=== PATIENT | male | born 1970 | race Caucasian/White ===

== ENCOUNTER 2018-03-27 19:19 | Emergency (ER) | payer OTHER, SELFPAY ==
[2018-03-27 19:20] VITALS: BP 140/74; PULSE 111; RESP 14; TEMP 36.8; O2SAT 94; BMI 29.0
--- NOTE | 2018-03-27 19:59 | DI.CT.S_ITS ---
PROCEDURE: CT CERVICAL SPINE WO CON INDICATIONS: multiple falls, neck pain TECHNIQUE: Noncontrast 3 mm thick sections acquired from the skull base to the T4 level. Sagittal and coronal reformats were then constructed. For radiation dose reduction, the following was used: automated exposure control, adjustment of mA and/or kV according to patient size. COMPARISON: [facility], CT, CT HEAD/BRAIN WO CON, 03/27/2018, 19:59. [facility], CR, CERVICAL SPINE 2 OR 3 VIEWS, 10/02/2016, 10:32. FINDINGS: Image quality: Excellent. Bones: No fractures or dislocations. Visualized superior ribs are intact. Degenerative disc disease is moderately severe over the middle and lower thirds of the cervical line. No trauma. Soft tissues: Prevertebral soft tissues are normal in thickness. No paravertebral hematomas. No apical pneumothoraces. IMPRESSION: Moderately severe degenerative disc disease over the middle and lower thirds of the cervical spine but without evidence of fracture or traumatic subluxation. Dictated by: Omar Saenz M.D. on 03/27/2018 at 20:20 Approved by: Omar Saenz M.D. on 03/27/2018 at 20:21
--- NOTE | 2018-03-27 19:59 | DI.CT.S_ITS ---
PROCEDURE: CT HEAD/BRAIN WO CON INDICATIONS: multiple falls, altered mental status TECHNIQUE: Noncontrast 4.5 mm thick angled axial sections acquired from the foramen magnum to the vertex, with coronal and sagittal reformats. For radiation dose reduction, the following was used: automated exposure control, adjustment of mA and/or kV according to patient size. COMPARISON: None. FINDINGS: Image quality: Excellent. CSF spaces: Basal cisterns are patent. No extra-axial fluid collections. Ventricles are normal in size and shape. Brain: No midline shift. No intracranial masses or hemorrhage. Peoples-white matter interface is normal. Skull and face: Calvarium and visualized facial bones are intact, without suspicious lesions. Sinuses: Visualized sinuses and mastoids are clear except for slight mucosal thickening of the posterior border of the maxillary sinuses. IMPRESSION: Slight mucosal thickening posterior border of the maxillary sinuses, no acute disease identified. No intracranial hemorrhage is present. Dictated by: Omar Saenz M.D. on 03/27/2018 at 20:19 Approved by: Omar Saenz M.D. on 03/27/2018 at 20:20
--- NOTE | 2018-03-27 20:13 | ED_ITS ---
HPI - Headache <CHELLE Sterling-BC - Last Filed: 03/27/18 23:55> General Chief Complaint: Headache Stated Complaint: HEAD PRESSURE Time Seen by Provider: 03/27/18 19:41 Source: patient and family Mode of arrival: ambulatory Limitations: no limitations History of Present Illness HPI Narrative: Patient presents with various complaints. He was noted to have a concussion approximately 1-1/2 years ago. He states he hit his head again a few months ago on a side rail. He presents with chief complaint of headache, head pressure, nausea vomiting. He also complains of palpitations, lack of ability to focus. He states he multiple falls. Of note the patient does admit to drinking 1/2 a 750 mL bottle of Tequila per day. He does combined this was Xanax as well. Mother patient states that all he wants to do is sleep. They state he sleeps approximately 15-20 hours per day. Complains of blurry vision in his left eye. Patient has not taken any Tylenol or ibuprofen today but states he took Xanax. He admits to having some shots today as well. notes that he has a history of elevated LFTs due to his drinking. Patient states he has not seen a primary care provider about this problem as he lives on [facility] and has trouble accessing care. Related Data Home Medications Medication Instructions Recorded Confirmed alprazolam [Xanax] 1 mg PO DAILY #0 09/20/16 03/27/18 ibuprofen 600 mg PO TID PRN #0 09/20/16 03/27/18 metoprolol succinate 100 mg PO QDAY #0 09/20/16 03/27/18 Previous Rx's Medication Instructions Recorded chlordiazepoxide HCl See Label Instructions .ROUTE 03/27/18 .COMPLEX #32 cap ondansetron HCl 4 mg PO TID PRN 5 Days #15 tab 03/27/18 Allergies Allergy/AdvReac Type Severity Reaction Status Date / Time No Known Drug Allergies Allergy Verified 03/27/18 19:25 Review of Systems <CHELLE Sterling-BC - Last Filed: 03/27/18 23:55> Review of Systems GENERAL: Denies chills, fatigue, malaise, fever, sweats. HEENT: Denies sinus pain, ear pain, sore throat, difficulty swallowing, dizziness. RESPIRATORY: Denies dyspnea, cough, wheezing, hemoptysis, sputum. CARDIOVASCULAR: Denies chest pain, palpitations, orthopnea, edema, GASTROINTESTINAL: Denies nausea, vomiting, abdominal pain, diarrhea, constipation, melena. : Denies dysuria, frequency, incontinence, hematuria, urinary retention. MUSCULOSKELETAL: See HPI SKIN: Denies rash, skin lesions, or other NEUROLOGIC: See HPI PSYCHIATRIC: No concerning psychosocial issues. 12 point review of systems is negative except for those stated above Exam <CHELLE Sterling-BC - Last Filed: 03/27/18 23:55> Narrative Exam Narrative: GENERAL: This is a well-nourished, well-developed patient, in no acute distress with at bedside. HEAD: Atraumatic. Normocephalic. No temporal or scalp tenderness. EYES: Pupils equal round and reactive. Extraocular motions intact. No scleral icterus. Slight jaundice noted. ENT: Nose without bleeding, purulent drainage or septal hematoma. Throat without erythema, tonsillar hypertrophy or exudate. Uvula midline. Airway patent. NECK: Trachea midline. No JVD or lymphadenopathy. Supple, nontender, no meningeal signs. Pain to palpation of C-spine. CARDIOVASCULAR: Regular rhythm. Tachycardic. RESPIRATORY: Clear to auscultation. Breath sounds equal bilaterally. No wheezes , rales, or rhonchi. GASTROINTESTINAL: Abdomen soft, non-tender, nondistended. Active bowel sounds all 4 quadrants. No palpable mass and no pulsatile mass. Nonrigid, non tender abdomen. Negative Kenny's sign. No pain at McBurney's point. No palpable hepatosplenomegaly. EXTREMITIES: No clubbing, cyanosis, or edema. No joint tenderness, effusion, or edema noted. BACK: Nontender without deformity or crepitance. No flank tenderness. No pain to spinal palpation but patient does have pain to palpation of C-spine. NEURO: AOx3. Strength is equal upper and lower extremities bilaterally. Achilles and radial reflexes are intact bilaterally. SKIN: No rash or erythema. Initial Vital Signs Initial Vital Signs: Vital Signs Temperature 98.3 F 03/27/18 19:20 Pulse Rate 111 H 03/27/18 19:20 Respiratory Rate 14 03/27/18 19:20 Blood Pressure 140/74 03/27/18 19:20 Pulse Oximetry 94 03/27/18 19:20 <Huy Ross DO - Last Filed: 03/28/18 00:47> Initial Vital Signs Initial Vital Signs: Vital Signs Temperature 98.3 F 03/27/18 19:20 Pulse Rate 111 H 03/27/18 19:20 Respiratory Rate 14 03/27/18 19:20 Blood Pressure 140/74 03/27/18 19:20 Pulse Oximetry 94 03/27/18 19:20 Course <ROSALINA SterlingBC - Last Filed: 03/27/18 23:55> Orders Ordered: ED Orders 03/27/18 19:59 CT cervical spine wo con Stat CT head/brain wo con Stat 03/27/18 20:30 Complete Blood Count AUTO DIFF Stat Comprehensive Metabolic Panel Stat Ethanol (ETOH) Stat Prothrombin Time INR Stat Troponin & CK Cardiac Panel Stat 03/27/18 21:18 Ammonia (NH3) Stat Amylase Stat Lipase Stat 03/27/18 21:35 CT abdomen pelvis w con Stat 03/27/18 21:57 US abdomen complete Stat Discontinued Medications Sodium Chloride (Normal Saline 0.9%) 1,000 mls @ 1,000 mls/hr IV BOLUS ONE Stop: 03/27/18 21:01 Last Infusion: 03/27/18 22:01 Dose: 0 mls/hr Admin: 03/27/18 20:50 Dose: 1,000 mls/hr Sodium Chloride (Normal Saline 0.9%) 1,000 mls @ 1,000 mls/hr IV BOLUS ONE Stop: 03/27/18 22:59 Last Infusion: 03/27/18 23:53 Dose: 0 mls/hr Admin: 03/27/18 22:02 Dose: 1,000 mls/hr Lorazepam (Ativan) 1 mg PO NOW ONE Stop: 03/27/18 23:34 Last Admin: 03/27/18 23:44 Dose: 1 mg Reevaluation(s) Reevaluation #1: C-spine collar removed given negative CT result of head and C- spine. Time: 20:30 Reevaluation #2: Discussed elevated LFTs and bilirubin. Discussed adding more lab work. Discussed obtaining CT scan of abdomen. Discussed obtaining ultrasound of abdomen as well. Patient continues to deny abdominal pain. Time: 21:30 Vital Signs - 8 hr 03/27/18 19:20 03/27/18 22:11 03/27/18 23:54 Temperature 98.3 F Pulse Rate 111 H 90 90 Respiratory Rate 14 18 14 Blood Pressure 140/74 118/78 Blood Pressure [Right Arm] 118/78 Pulse Oximetry 94 93 99 <Huy Ross DO - Last Filed: 03/28/18 00:47> Orders Ordered: ED Orders 03/27/18 19:59 CT cervical spine wo con Stat CT head/brain wo con Stat 03/27/18 20:30 Complete Blood Count AUTO DIFF Stat Comprehensive Metabolic Panel Stat Ethanol (ETOH) Stat Prothrombin Time INR Stat Troponin & CK Cardiac Panel Stat 03/27/18 21:18 Ammonia (NH3) Stat Amylase Stat Lipase Stat 03/27/18 21:35 CT abdomen pelvis w con Stat 03/27/18 21:57 US abdomen complete Stat Discontinued Medications Sodium Chloride (Normal Saline 0.9%) 1,000 mls @ 1,000 mls/hr IV BOLUS ONE Stop: 03/27/18 21:01 Last Infusion: 03/27/18 22:01 Dose: 0 mls/hr Admin: 03/27/18 20:50 Dose: 1,000 mls/hr Sodium Chloride (Normal Saline 0.9%) 1,000 mls @ 1,000 mls/hr IV BOLUS ONE Stop: 03/27/18 22:59 Last Infusion: 03/27/18 23:53 Dose: 0 mls/hr Admin: 03/27/18 22:02 Dose: 1,000 mls/hr Lorazepam (Ativan) 1 mg PO NOW ONE Stop: 03/27/18 23:34 Last Admin: 03/27/18 23:44 Dose: 1 mg Vital Signs - 8 hr 03/27/18 19:20 03/27/18 22:11 03/27/18 23:54 Temperature 98.3 F Pulse Rate 111 H 90 90 Respiratory Rate 14 18 14 Blood Pressure 140/74 118/78 Blood Pressure [Right Arm] 118/78 Pulse Oximetry 94 93 99 MDM - Headache <GRACIELA Sterling - Last Filed: 03/27/18 23:55> Lab Data Attestation: I reviewed the patient's lab results. Result diagrams: 03/27/18 20:30 03/27/18 20:30 Lab Results 03/27/18 03/27/18 03/27/18 Range/Units 20:30 20:30 20:30 WBC 4.8 (4.5-11.0) X10^3/uL RBC 3.99 L (4.5-5.9) X10^6/uL Hgb 14.3 (13.5-17.5) g/dL Hct 41.0 (41-53) % MCV 103.0 H (80-100) fL MCH 36.0 H (26-34) PG MCHC 34.9 (30-36) % RDW 16.9 H (11.6-14.8) % Plt Count 48 L (150-400) X10^3/uL Neut % (Auto) 59.4 (50-75) % Lymph % (Auto) 21.3 L (25-40) % Glynn % (Auto) 13.5 (3-14) % Eos % (Auto) 5.2 H (2-4) % Baso % (Auto) 0.6 (0-2) % Neut # (Auto) 2800 L (3010-8322) /uL Platelet Estimate Decreased on smear RBC Morphology See below Anisocytosis 1+ H PT 14.0 H (10.1-12.7) SECONDS INR 1.3 (0.9-1.3) Sodium 143 (137-145) mmol/L Potassium 3.5 (3.4-5.1) mmol/L Chloride 102 (98-107) mmol/L Carbon Dioxide 28 (22-32) mmol/L BUN 9 (9-20) mg/dL Creatinine 0.70 (0.66-1.25) mg/dL Estimated GFR > 60.0 (>60) mL/min BUN/Creatinine Ratio 12.9 (6-22) Glucose 118 H (70-100) mg/dL Calcium 8.5 (8.4-10.2) mg/dL Total Bilirubin 4.6 H (0.2-1.3) mg/dL AST 161 H (17-59) IU/L ALT 49 (21-72) IU/L Alkaline Phosphatase 321 H (38-126) U/L Ammonia (9-30) umol/L Total Creatine Kinase 564 H (55-170) U/L CK-MB (CK-2) 3.47 H (<2.37) ng/mL CK-MB (CK-2) Rel Index 0.6 L (1.5-5.0) % Troponin I 0.020 (0.01-0.034) ng/mL Total Protein 8.2 (6.3-8.2) g/dL Albumin 3.8 (3.5-5.0) g/dL Globulin 4.4 H (1.7-4.1) g/dL Albumin/Globulin Ratio 0.9 L (1.0-2.8) Amylase (30-110) U/L Lipase (23-300) U/L Ethyl Alcohol 250 mg/dL 03/27/18 03/27/18 Range/Units 21:18 21:18 WBC (4.5-11.0) X10^3/uL RBC (4.5-5.9) X10^6/uL Hgb (13.5-17.5) g/dL Hct (41-53) % MCV (80-100) fL MCH (26-34) PG MCHC (30-36) % RDW (11.6-14.8) % Plt Count (150-400) X10^3/uL Neut % (Auto) (50-75) % Lymph % (Auto) (25-40) % Glynn % (Auto) (3-14) % Eos % (Auto) (2-4) % Baso % (Auto) (0-2) % Neut # (Auto) (2721-7136) /uL Platelet Estimate RBC Morphology Anisocytosis PT (10.1-12.7) SECONDS INR (0.9-1.3) Sodium (137-145) mmol/L Potassium (3.4-5.1) mmol/L Chloride (98-107) mmol/L Carbon Dioxide (22-32) mmol/L BUN (9-20) mg/dL Creatinine (0.66-1.25) mg/dL Estimated GFR (>60) mL/min BUN/Creatinine Ratio (6-22) Glucose (70-100) mg/dL Calcium (8.4-10.2) mg/dL Total Bilirubin (0.2-1.3) mg/dL AST (17-59) IU/L ALT (21-72) IU/L Alkaline Phosphatase (38-126) U/L Ammonia 42.0 H (9-30) umol/L Total Creatine Kinase (55-170) U/L CK-MB (CK-2) (<2.37) ng/mL CK-MB (CK-2) Rel Index (1.5-5.0) % Troponin I (0.01-0.034) ng/mL Total Protein (6.3-8.2) g/dL Albumin (3.5-5.0) g/dL Globulin (1.7-4.1) g/dL Albumin/Globulin Ratio (1.0-2.8) Amylase 107 (30-110) U/L Lipase 477 H (23-300) U/L Ethyl Alcohol mg/dL Patient is noted to have increased LFTs, elevated ammonia slightly, elevated bilirubin. Patient is noted have decreased platelets and an INR of 1.3. Imaging Data CT scan - head: Radiologist's impression: [facility] DATE TYPE STATUS AUTHOR Marissa 03/27/18 19:59 Omar Saenz 03/27/18 19:59 Omar Saenz Balta Jarrett 47, M1970 [facility], ED - Main ED: R04 167.64cm 81.647kg BSA: 1.91m? BMI: 29.1kg/m? Headache Search Chart No Known Drug Allergies ONSET Today 19:20 [place] [address] CT Scan Report Signed Patient: Balta JarrettMR#: [id number] : 1970Acct:[id number] Age/Sex: 47 / MDate of Service: 03/27/18 Loc: ED Accession Number: [id number] Procedure: CT head/brain wo con Ordering Provider: Kristy Sebastian PROCEDURE: CT HEAD/BRAIN WO CON INDICATIONS: multiple falls, altered mental status TECHNIQUE: Noncontrast 4.5 mm thick angled axial sections acquired from the foramen magnum to the vertex, with coronal and sagittal reformats. For radiation dose reduction, the following was used: automated exposure control, adjustment of mA and/or kV according to patient size. COMPARISON: None. FINDINGS: Image quality: Excellent. CSF spaces: Basal cisterns are patent. No extra-axial fluid collections. Ventricles are normal in size and shape. Brain: No midline shift. No intracranial masses or hemorrhage. Peoples-white matter interface is normal. Skull and face: Calvarium and visualized facial bones are intact, without suspicious lesions. Sinuses: Visualized sinuses and mastoids are clear except for slight mucosal thickening of the posterior border of the maxillary sinuses. IMPRESSION: Slight mucosal thickening posterior border of the maxillary sinuses , no acute disease identified. No intracranial hemorrhage is present. Dictated by: Omar Saenz M.D. on 03/27/2018 at 20:19 Approved by: Omar Saenz M.D. on 03/27/2018 at 20:20 ct c spine : Radiologist's impression: [place] [address] CT Scan Report Signed Patient: Shun Jarrett#: [id number] : 1970Acct:[id number] Age/Sex: 47 / MDate of Service: 03/27/18 Loc: ED Accession Number: [id number] Procedure: CT cervical spine wo con Ordering Provider: Kristy Sebastian PROCEDURE: CT CERVICAL SPINE WO CON INDICATIONS: multiple falls, neck pain TECHNIQUE: Noncontrast 3 mm thick sections acquired from the skull base to the T4 level. Sagittal and coronal reformats were then constructed. For radiation dose reduction, the following was used: automated exposure control, adjustment of mA and/or kV according to patient size. COMPARISON: [facility], CT, CT HEAD/BRAIN WO CON, 03/27/2018, 19:59. [facility], CR, CERVICAL SPINE 2 OR 3 VIEWS, 10/02/2016, 10:32. FINDINGS: Image quality: Excellent. Bones: No fractures or dislocations. Visualized superior ribs are intact. Degenerative disc disease is moderately severe over the middle and lower thirds of the cervical line. No trauma. Soft tissues: Prevertebral soft tissues are normal in thickness. No paravertebral hematomas. No apical pneumothoraces. IMPRESSION: Moderately severe degenerative disc disease over the middle and lower thirds of the cervical spine but without evidence of fracture or traumatic subluxation. Dictated by: Omar Saenz M.D. on 03/27/2018 at 20:20 Approved by: Omar Saenz M.D. on 03/27/2018 at 20:21 ECG Data Attestation: I personally reviewed and interpreted this ECG as follows: Interpretation: Sinus tachycardia. Heart rate 107. No ST elevation or depression. No ectopy noted MDM Narrative Medical decision making narrative: Patient presents with chief complaint of headache, multiple falls, somnolence. He was noted to be drinking approximately 50% of 750 of Tequila per day. He had an elevated alcohol. Given his reported recent falls and poor historian, I obtained a head CT and neck CT which both came back negative. His combination of elevated LFTs, elevated bili, elevated ammonia make me concern for alcoholic cirrhosis. I had a very satish discussion with the patient about needing to stop drinking at this point time. I discussed with Dr. Castanon the patient's labs and presentation. She did not feel this was a surgical case, but suggested that I speak with Medicine. Prior to speaking with Medicine, the patient stated he did not want to be admitted to the hospital. I discussed at length with him drinking cessation. The patient was given a prescription of Librium as well as Zofran her detox symptoms. He already has follow-up scheduled with his PCPs office tomorrow afternoon. Patient had no questions or concerns upon discharge. <Huy Ross, DO - Last Filed: 03/28/18 00:47> Lab Data Lab Results 03/27/18 03/27/18 03/27/18 Range/Units 20:30 20:30 20:30 WBC 4.8 (4.5-11.0) X10^3/uL RBC 3.99 L (4.5-5.9) X10^6/uL Hgb 14.3 (13.5-17.5) g/dL Hct 41.0 (41-53) % MCV 103.0 H (80-100) fL MCH 36.0 H (26-34) PG MCHC 34.9 (30-36) % RDW 16.9 H (11.6-14.8) % Plt Count 48 L (150-400) X10^3/uL Neut % (Auto) 59.4 (50-75) % Lymph % (Auto) 21.3 L (25-40) % Glynn % (Auto) 13.5 (3-14) % Eos % (Auto) 5.2 H (2-4) % Baso % (Auto) 0.6 (0-2) % Neut # (Auto) 2800 L (4534-8140) /uL Platelet Estimate Decreased on smear RBC Morphology See below Anisocytosis 1+ H PT 14.0 H (10.1-12.7) SECONDS INR 1.3 (0.9-1.3) Sodium 143 (137-145) mmol/L Potassium 3.5 (3.4-5.1) mmol/L Chloride 102 (98-107) mmol/L Carbon Dioxide 28 (22-32) mmol/L BUN 9 (9-20) mg/dL Creatinine 0.70 (0.66-1.25) mg/dL Estimated GFR > 60.0 (>60) mL/min BUN/Creatinine Ratio 12.9 (6-22) Glucose 118 H (70-100) mg/dL Calcium 8.5 (8.4-10.2) mg/dL Total Bilirubin 4.6 H (0.2-1.3) mg/dL AST 161 H (17-59) IU/L ALT 49 (21-72) IU/L Alkaline Phosphatase 321 H (38-126) U/L Ammonia (9-30) umol/L Total Creatine Kinase 564 H (55-170) U/L CK-MB (CK-2) 3.47 H (<2.37) ng/mL CK-MB (CK-2) Rel Index 0.6 L (1.5-5.0) % Troponin I 0.020 (0.01-0.034) ng/mL Total Protein 8.2 (6.3-8.2) g/dL Albumin 3.8 (3.5-5.0) g/dL Globulin 4.4 H (1.7-4.1) g/dL Albumin/Globulin Ratio 0.9 L (1.0-2.8) Amylase (30-110) U/L Lipase (23-300) U/L Ethyl Alcohol 250 mg/dL 03/27/18 03/27/18 Range/Units 21:18 21:18 WBC (4.5-11.0) X10^3/uL RBC (4.5-5.9) X10^6/uL Hgb (13.5-17.5) g/dL Hct (41-53) % MCV (80-100) fL MCH (26-34) PG MCHC (30-36) % RDW (11.6-14.8) % Plt Count (150-400) X10^3/uL Neut % (Auto) (50-75) % Lymph % (Auto) (25-40) % Glynn % (Auto) (3-14) % Eos % (Auto) (2-4) % Baso % (Auto) (0-2) % Neut # (Auto) (5623-2661) /uL Platelet Estimate RBC Morphology Anisocytosis PT (10.1-12.7) SECONDS INR (0.9-1.3) Sodium (137-145) mmol/L Potassium (3.4-5.1) mmol/L Chloride (98-107) mmol/L Carbon Dioxide (22-32) mmol/L BUN (9-20) mg/dL Creatinine (0.66-1.25) mg/dL Estimated GFR (>60) mL/min BUN/Creatinine Ratio (6-22) Glucose (70-100) mg/dL Calcium (8.4-10.2) mg/dL Total Bilirubin (0.2-1.3) mg/dL AST (17-59) IU/L ALT (21-72) IU/L Alkaline Phosphatase (38-126) U/L Ammonia 42.0 H (9-30) umol/L Total Creatine Kinase (55-170) U/L CK-MB (CK-2) (<2.37) ng/mL CK-MB (CK-2) Rel Index (1.5-5.0) % Troponin I (0.01-0.034) ng/mL Total Protein (6.3-8.2) g/dL Albumin (3.5-5.0) g/dL Globulin (1.7-4.1) g/dL Albumin/Globulin Ratio (1.0-2.8) Amylase 107 (30-110) U/L Lipase 477 H (23-300) U/L Ethyl Alcohol mg/dL Discharge Plan Departure Patient Disposition: Home Clinical Impression: Elevated LFTs, Headache, Alcohol abuse, Elevated bilirubin, Hepatosplenomegaly , Elevated lipase, Decreased platelet count Discharge Date/Time: 03/27/18 23:55 Interventions: ED Discharge Assessment Last Done: 03/27/18 23:54 Instructions: DI for Cirrhosis, DI for Alcohol Abuse, DI for Headache, DI for Drug or Alcohol Withdrawal Activity Restrictions/Additional Instructions: It is imperative that you follow-up with your primary care provider tomorrow. I am very concerned that ear drinking alcohol is leading to organ dysfunction. You need very close monitoring and very close follow-up. Have also given you a prescription for Zofran for nausea. I have given you contact information for a few GI specialist. Please stop drinking alcohol and do not use any medications that are metabolized through the liver such as Tylenol. Prescriptions: New ondansetron HCl 4 mg tablet 4 mg PO TID PRN (Reason: nausea and vomiting) 5 Days Qty: 15 RF: 0 chlordiazepoxide HCl 25 mg capsule See Label Instructions .ROUTE .COMPLEX Qty: 32 RF: 0 No Action metoprolol succinate 100 MG tablet extended release 24 hr 100 mg PO QDAY Qty: 0 RF: 0 alprazolam [Xanax] 0.5 MG tablet 1 mg PO DAILY Qty: 0 RF: 0 ibuprofen 600 MG tablet 600 mg PO TID PRN (Reason: Pain (Scale Score 4-6)) Qty: 0 RF: 0 Referrals: [facility] [Outside] [facility] [Outside] Ranjan Goldman MD [Primary Care Provider] - Ranjan Childers MD [Non-Staff] - <Huy Ross DO - Last Filed: 03/28/18 00:47> Cosign ED Attending Guerreroature Attestation: I was immediately available in the department for consultation. Documentation has been reviewed. I agree with assessment and plan.
--- NOTE | 2018-03-27 20:34 | PC.NURSE ---
cervical collar placed at 2009. Collar removed by ELISABETH at 2029.
[2018-03-27 20:36] LABS: Add Manual Diff / Slide Review NO; Basophils Percent Auto 0.6 % (0-2); Eosinophils Percent Auto 5.2 % (2-4); Hemoglobin 14.3 g/dL (13.5-17.5); Lymphocytes Percent Auto 21.3 % (25-40); Mean Corpuscular HGB Conc 34.9 % (30-36); Monocytes Percent Auto 13.5 % (3-14); Neutrophils Absolute Auto 2800 /uL (3000-5900); Neutrophils Percent Auto 59.4 % (50-75); Platelet Count 48 X10^3/uL (150-400); Red Blood Cell Count 3.99 X10^6/uL (4.5-5.9); Red Cell Distribution Width 16.9 % (11.6-14.8); White Blood Cell Count 4.8 X10^3/uL (4.5-11.0)
[2018-03-27 20:46] LABS: INR 1.3 (0.9-1.3)
[2018-03-27 20:50] LABS: Alanine Aminotransferase 49 IU/L (21-72); Albumin 3.8 g/dL (3.5-5.0); Albumin Globulin Ratio 0.9 (1.0-2.8); Alkaline Phosphatase 321 U/L (38-126); Aspartate Aminotransferase 161 IU/L (17-59); BUN Creatinine Ratio 12.9 (6-22); Bilirubin Total 4.6 mg/dL (0.2-1.3); Blood Urea Nitrogen 9 mg/dL (9-20); Calcium 8.5 mg/dL (8.4-10.2); Carbon Dioxide 28 mmol/L (22-32); Chloride 102 mmol/L (98-107); Creatine Kinase 564 U/L (55-170); Estimated Glomerular Filt Rate > 60.0 mL/min (>60); Globulin 4.4 g/dL (1.7-4.1); Glucose 118 mg/dL (70-100); Potassium 3.5 mmol/L (3.4-5.1); Sodium 143 mmol/L (137-145); Total Protein 8.2 g/dL (6.3-8.2)
[2018-03-27] MEDS: SODIUM CHLORIDE 0.9% 1,000 ML 1000 ML IV ×2 (20:50→22:02)
[2018-03-27 20:54] LABS: Ethanol (ETOH) 250 mg/dL; HEMOLYSIS 24 (0-50)
[2018-03-27 21:15] LABS: CKMB % Relative Index 0.6 % (1.5-5.0); Creatine Kinase MB 3.47 ng/mL (<2.37)
[2018-03-27 21:17] LABS: Anisocytosis 1+; Platelet Estimate Decreased on smear
[2018-03-27 21:33] LABS: Amylase 107 U/L (30-110); Lipase 477 U/L (23-300)
--- NOTE | 2018-03-27 21:35 | DI.CT.S_ITS ---
PROCEDURE: CT ABDOMEN PELVIS W CON INDICATIONS: abdominal pain TECHNIQUE: After the administration of intravenous contrast, 5 mm thick sections acquired from the diaphragm to the symphysis. 5 mm coronal and sagittal reformats were acquired. For radiation dose reduction, the following was used: automated exposure control, adjustment of mA and/or kV according to patient size. COMPARISON: None. FINDINGS: Image quality: Excellent. ABDOMEN: Lung bases: Lung bases are clear. Heart size is normal. Solid organs: Liver is enlarged in size and normal in enhancement. Gallbladder contains calcified gallstones layering dependently. Biliary system is non dilated. Pancreas enhances normally but there is peripancreatic edema in the pancreatic head and extending contiguously along the right paracolic gutter borders. Spleen is only mildly enlarged in size and normal in enhancement. No adrenal nodules. Kidneys demonstrate normal size and enhancement, without hydronephrosis. Peritoneum and bowel: Bowel loops demonstrate normal wall thickness and caliber on the left but the ascending colon shows a mild degree of mural thickening in addition to the immediately adjacent pericolonic edema tracking along the fascial planes of the right paracolic gutter. No free fluid or air. Nodes and vessels: No retroperitoneal or mesenteric adenopathy by size criteria. Aorta and inferior vena cava are normal in size. Miscellaneous: No ventral hernias. PELVIS: Genitourinary: Bladder wall thickness is normal. Miscellaneous: No inguinal hernias or adenopathy. Bones: No suspicious bony lesions. No vertebral body compression fractures. IMPRESSION: Calcified gallstones present within the posterior gallbladder lumen but no biliary gallstone is seen. The gallstones present are densely calcified and is within the common duct would be easily visible. There is edema that tracks to the anterior border of the pancreatic head but also the C. edema tracts along the paracolic gutter and is associated with mild mural thickening of the ascending colon which does not extend into the transverse colon. Please correlate clinically for differentiation between acute pancreatitis versus colitis as the underlying cause of this retroperitoneal edema. Note is made of hepatosplenomegaly, and increased number of venous structures are seen across the upper abdomen as an indicator of likelihood of underlying mild to moderate portal hypertension. Dictated by: Omar Saenz M.D. on 03/27/2018 at 22:05 Approved by: Omar Saenz M.D. on 03/27/2018 at 22:10
--- NOTE | 2018-03-27 21:57 | DI.US.S_ITS ---
PROCEDURE: US ABDOMEN COMPLETE INDICATIONS: PAIN TECHNIQUE: Real-time scanning was performed of the abdominal and retroperitoneal organs, with image documentation. COMPARISON: [facility], CT, CT ABDOMEN PELVIS W CON, 03/27/2018, 21:42. FINDINGS: Liver: Liver is diffusely increased in echogenicity. No focal hepatic abnormalities identified. Normal hepatic size. Gallbladder: Gallstones seen on recent CT scan are not definitively identified sonographically, although they may be positioned within the gallbladder neck and not sonographically visible. Gallbladder wall measures 2 mm which is normal. No pericholecystic fluid. Biliary ducts: Intrahepatic bile ducts are non-dilated. Extrahepatic bile duct caliber measures 5.7 mm. Normal is 6-7 mm or less in diameter, or 10 mm or less post-cholecystectomy. Pancreas: Not visualized. Spleen: Spleen is enlarged in size at 13.3 cm and homogeneous in echotexture. Kidneys: Kidneys are normal in size and echotexture. Right kidney measures 11.8 cm long; left kidney measures 11.8 cm long. No hydronephrosis or nephrolithiasis. No solid masses. Aorta: Visualized aorta is normal in caliber at less than 3 cm. Iliacs: Proximal common iliac arteries are normal in caliber at less than 2.5 cm. IVC: Intrahepatic inferior vena cava is patent. Miscellaneous: No free abdominal fluid. IMPRESSION: 1. Increased hepatic echogenicity noted possibly related to hepatic steatosis but other sources of hepatocellular disease cannot be excluded. Recommend clinical correlation. 2. Gallstones seen convincingly on recent CT scan are not definitively identified by ultrasound. If indicated repeat limited gallbladder ultrasound could be performed. 3. Sonographic splenomegaly. Note: These findings are concordant with the preliminary interpretation. Dictated by: Best GOMEZ Interpreted: Norma Pugh MD on 03/28/2018 at 8:43 Approved by: Norma Pugh M.D. on 03/28/2018 at 15:36
[2018-03-27 22:11] VITALS: BP 118/78; PULSE 90; RESP 18; O2SAT 93
[2018-03-27] MEDS: LORazepam 0.5 MG TABLET 1 MG PO (23:44)
[2018-03-27 23:54] VITALS: BP 118/78; PULSE 90; RESP 14; O2SAT 99
--- NOTE | 2018-03-30 17:36 | PC.NURSE ---
follow up call, number no responds.
== END 2018-03-27 23:55 | disposition home or self-care (01) ==
PROVIDERS: Emergency Provider Nurse Practitioner Family; Family Provider Family Medicine; PCP Family Medicine
DX: R51 Headache (principal); R94.5 Abnormal results of liver function studies; R16.2 Hepatomegaly with splenomegaly, not elsewhere classified; R17 Unspecified jaundice; R74.8 Abnormal levels of other serum enzymes; F10.10 Alcohol abuse, uncomplicated; D69.6 Thrombocytopenia, unspecified
CPT/HCPCS: 36415; 36591; 70450; 72125; 74177; 76700; 80053; 80320; 82140; 82150; 82550; 82553; 83690; 84484; 85025; 85610; 93005; 96360; 96361; 99283; 99285; Q9967

== ENCOUNTER 2018-10-21 21:48 | Emergency (ER) | payer OTHER, SELFPAY ==
[2018-10-21 21:53] VITALS: BP 116/77; PULSE 78; RESP 18; TEMP 36.4; O2SAT 96; BMI 29.0
[2018-10-21 22:00] VITALS: BP 112/64; PULSE 77; RESP 12; O2SAT 95
--- NOTE | 2018-10-21 22:22 | DI.RAD.S_ITS ---
PROCEDURE: XR CHEST 1V INDICATIONS: syncope, choking TECHNIQUE: One view of the chest was acquired. COMPARISON: None. FINDINGS: Surgical changes and devices: None. Lungs and pleura: Streaky left basilar opacities. Lungs are otherwise clear. Mild eventration of the right hemidiaphragm. No pleural effusions or pneumothorax. Mediastinum: Mediastinal contours appear normal. Heart size is normal. Bones and chest wall: No suspicious bony lesions. Overlying soft tissues appear unremarkable. IMPRESSION: Mild streaky left basilar opacities favored to represent atelectasis. However, focal airspace disease/aspiration may have a similar appearance given reported history of choking. Dictated by: Sulaiman Hein M.D. on 10/22/2018 at 6:12 Approved by: Sulaiman Hein M.D. on 10/22/2018 at 6:14
[2018-10-21 22:30] VITALS: BP 107/71; PULSE 74; RESP 12; O2SAT 94
[2018-10-21 22:31] LABS: Add Manual Diff / Slide Review NO; Basophils Absolute Auto 0 /uL (0-100); Basophils Percent Auto 0.7 % (0-2); Eosinophils Absolute Auto 400 /uL (0-450); Eosinophils Percent Auto 7.2 % (2-4); Hematocrit 39.3 % (41-53); Hemoglobin 13.4 g/dL (13.5-17.5); Lymphocytes Absolute Auto 1700 /uL (1100-4500); Lymphocytes Percent Auto 30.7 % (25-40); Mean Corpuscular HGB Conc 34.2 % (30-36); Mean Corpuscular Hemoglobin 36.1 PG (26-34); Mean Corpuscular Volume 105.7 fL (80-100); Monocytes Absolute Auto 500 /uL (0-900); Monocytes Percent Auto 9.2 % (3-14); Neutrophils Absolute Auto 2900 /uL (1500-7000); Neutrophils Percent Auto 52.2 % (50-75); Platelet Count 68 X10^3/uL (150-400); Red Blood Cell Count 3.72 X10^6/uL (4.5-5.9); Red Cell Distribution Width 14.9 % (11.6-14.8); White Blood Cell Count 5.5 X10^3/uL (4.5-11.0)
[2018-10-21 22:44] LABS: Alanine Aminotransferase 75 IU/L (21-72); Albumin 3.3 g/dL (3.5-5.0); Albumin Globulin Ratio 0.8 (1.0-2.8); Alkaline Phosphatase 241 U/L (38-126); Aspartate Aminotransferase 145 IU/L (17-59); Bilirubin Total 2.8 mg/dL (0.2-1.3); Blood Urea Nitrogen 9 mg/dL (9-20); Calcium 7.8 mg/dL (8.4-10.2); Carbon Dioxide 25 mmol/L (22-32); Chloride 108 mmol/L (98-107); Creatine Kinase 599 U/L (55-170); Estimated Glomerular Filt Rate > 60.0 mL/min (>60); Ethanol (ETOH) 294 mg/dL; Globulin 4.1 g/dL (1.7-4.1); Glucose 100 mg/dL (70-100); HEMOLYSIS 16 (0-50); Potassium 3.4 mmol/L (3.4-5.1); Sodium 144 mmol/L (137-145); Total Protein 7.4 g/dL (6.3-8.2)
--- NOTE | 2018-10-21 22:51 | ED_ITS ---
HPI - Syncope General Chief Complaint: Syncope Stated Complaint: Choking, CPR AOx4 now Time Seen by Provider: 10/21/18 21:55 Source: patient, family and EMS Mode of arrival: EMS Limitations: no limitations History of Present Illness HPI narrative: 47-year-old male former smoker and heavy drinker presents by EMS for evaluation of a choking episode and subsequent syncopal episode. He was eating a [place] dinner the read shows and had a significant amount Tequila when he choked on his food and subsequently passed out. His called 911 and they recommended some chest compressions which apparently cleared the food bolus and by arrival of EMS he was breathing appropriately. By his arrival here he was completely awake and alert and was requesting near immediate discharge. The patient after further questioning states he essentially feels fine and at baseline but admitted these started heavy drinking again. He is requesting help stopping alcohol abuse MD complaint: loss of consciousness and collapsed Onset (ago): minute(s) Prodromal symptoms: none Witnessed: yes - by bystander Context: alcohol use and other Injuries sustained associated with event: none Current symptoms: none Treatments prior to arrival: none Related Data Home Medications Medication Instructions Recorded Confirmed alprazolam [Xanax] 1 mg PO DAILY #0 09/20/16 03/27/18 ibuprofen 600 mg PO TID PRN #0 09/20/16 03/27/18 metoprolol succinate 100 mg PO QDAY #0 09/20/16 03/27/18 Previous Rx's Medication Instructions Recorded chlordiazepoxide HCl See Rx Instructions .ROUTE 03/27/18 .COMPLEX #32 cap chlordiazepoxide HCl 25 mg PO Q8H PRN #32 cap 10/22/18 Allergies Allergy/AdvReac Type Severity Reaction Status Date / Time No Known Drug Allergies Allergy Verified 03/27/18 19:25 Review of Systems Constitutional Denies chills, Denies fever(s), Denies lethargy and Denies weakness Eyes Denies change in vision, Denies eye discharge, Denies irritation and Denies loss of vision ENT Ears, Nose, Mouth, and Throat: Denies change in voice, Denies neck pain and Denies sore throat Cardiovascular Denies chest pain, Reports syncope, Denies irregular heart rhythm, Denies lightheadedness, Denies palpitations, Denies dyspnea, Denies dyspnea on exertion and Denies orthopnea Respiratory Denies cough, Denies dyspnea, Denies dyspnea on exertion and Denies wheezing Gastrointestinal Gastrointestinal: Denies abdominal pain, Denies change in bowel habits, Denies diarrhea, Denies nausea and Denies vomiting Genitourinary Denies hematuria, Denies flank pain, Denies urinary incontinence and Denies urinary urgency Musculoskeletal Denies neck pain Integumentary/Breasts Denies pruritus, Denies erythema, Denies rash and Denies wounds Neurologic Denies confusion, Reports syncope, Denies loss of vision and Denies weakness Psychiatric Denies anxiety, Denies confusion, Denies depression, Denies homicidal ideation and Denies suicidal ideation Endocrine Denies palpitations Hematologic/Lymphatic Denies easy bruising Allergic/Immunologic Denies wheezing PFSH Social History Smoking Status: Never smoker Social History Smoking Status: Never smoker Exam Narrative Exam Narrative: GENERAL: This is a well-nourished, well-developed patient, in mild distress. HEAD: Atraumatic. Normocephalic. No temporal or scalp tenderness. EYES: Pupils equal round and reactive. Extraocular motions intact. No scleral icterus. No injection or drainage. ENT: Nose without bleeding, purulent drainage or septal hematoma. Throat without erythema, tonsillar hypertrophy or exudate. Uvula midline. Airway patent. NECK: Trachea midline. No JVD or lymphadenopathy. Supple, nontender, no meningeal signs. CARDIOVASCULAR: Regular rate and rhythm without murmurs, gallops, or rubs. RESPIRATORY: Clear to auscultation. Breath sounds equal bilaterally. No wheezes, rales, or rhonchi. GASTROINTESTINAL: Abdomen soft, non-tender, nondistended. No hepato- splenomegaly, or palpable masses. No guarding. EXTREMITIES: No clubbing, cyanosis, or edema. No joint tenderness, effusion, or edema noted. BACK: Nontender without deformity or crepitance. No flank tenderness. NEURO: AOx3. SKIN: No rash or erythema. Initial Vital Signs Initial Vital Signs: Vital Signs Temperature 97.6 F 10/21/18 21:53 Pulse Rate 78 10/21/18 21:53 Respiratory Rate 18 10/21/18 21:53 Blood Pressure 116/77 10/21/18 21:53 Pulse Oximetry 96 10/21/18 21:53 Course Orders Ordered: ED Orders 10/21/18 22:22 XR chest 1V Stat 10/21/18 22:25 Complete Blood Count AUTO DIFF Stat Comprehensive Metabolic Panel Stat Ethanol (ETOH) Stat Prolactin Stat Troponin & CK Cardiac Panel Stat Discontinued Medications Sodium Chloride (Normal Saline 0.9%) 1,000 mls @ 1,000 mls/hr IV BOLUS ONE Stop: 10/21/18 23:20 Last Admin: 10/21/18 22:56 Dose: 1,000 mls/hr Vital Signs - 8 hr 10/21/18 21:53 10/21/18 22:00 10/21/18 22:30 Temperature 97.6 F Pulse Rate 78 77 74 Respiratory Rate 18 12 12 Blood Pressure 116/77 Blood Pressure [Right Arm] 112/64 107/71 Pulse Oximetry 96 95 94 10/21/18 23:00 10/21/18 23:30 10/22/18 00:00 Temperature Pulse Rate 75 72 73 Respiratory Rate 13 14 14 Blood Pressure Blood Pressure [Right Arm] 104/63 101/61 101/59 L Pulse Oximetry 96 95 96 MDM - Syncope Lab Data Result diagrams: 10/21/18 22:25 10/21/18 22:25 Lab Results 10/21/18 10/21/18 Range/Units 22:25 22:25 WBC 5.5 (4.5-11.0) X10^3/uL RBC 3.72 L (4.5-5.9) X10^6/uL Hgb 13.4 L (13.5-17.5) g/dL Hct 39.3 L (41-53) % MCV 105.7 H (80-100) fL MCH 36.1 H (26-34) PG MCHC 34.2 (30-36) % RDW 14.9 H (11.6-14.8) % Plt Count 68 L (150-400) X10^3/uL Neut % (Auto) 52.2 (50-75) % Lymph % (Auto) 30.7 (25-40) % [place] % (Auto) 9.2 (3-14) % Eos % (Auto) 7.2 H (2-4) % Baso % (Auto) 0.7 (0-2) % Neut # (Auto) 2900 (4136-6156) /uL Lymph # (Auto) 1700 (8484-8236) /uL [place] # (Auto) 500 (0-900) /uL Eos # (Auto) 400 (0-450) /uL Baso # (Auto) 0 (0-100) /uL Sodium 144 (137-145) mmol/L Potassium 3.4 (3.4-5.1) mmol/L Chloride 108 H (98-107) mmol/L Carbon Dioxide 25 (22-32) mmol/L BUN 9 (9-20) mg/dL Creatinine 0.50 L (0.66-1.25) mg/dL Estimated GFR > 60.0 (>60) mL/min BUN/Creatinine Ratio 18.0 (6-22) Glucose 100 (70-100) mg/dL Calcium 7.8 L (8.4-10.2) mg/dL Total Bilirubin 2.8 H (0.2-1.3) mg/dL AST 145 H (17-59) IU/L ALT 75 H (21-72) IU/L Alkaline Phosphatase 241 H (38-126) U/L Total Creatine Kinase 599 H (55-170) U/L CK-MB (CK-2) 5.15 H (<2.37) ng/mL CK-MB (CK-2) Rel Index 0.9 L (1.5-5.0) % Troponin I < 0.012 (0.01-0.034) ng/mL Total Protein 7.4 (6.3-8.2) g/dL Albumin 3.3 L (3.5-5.0) g/dL Globulin 4.1 (1.7-4.1) g/dL Albumin/Globulin Ratio 0.8 L (1.0-2.8) Prolactin 22.7 H (3.7-17.9) ng/mL Ethyl Alcohol 294 mg/dL Imaging Data Chest x-ray: Attestation: I personally reviewed and interpreted this imaging study as follows: My impression: NAP ECG Data Attestation: I personally reviewed and interpreted this ECG as follows: Prior ECG tracings: not available for review Interpretation: EKG is normal sinus rhythm rate [ 76] and free of any signs of ischemia or ectopy. No ST segmental elevation or depression. No T wave inversions MDM Narrative Medical decision making narrative: Multiple etiologies for patient's symptoms considered including: [Arrhythmia versus vasovagal syncope versus other] Patient's symptoms improved or duration of stay with above-stated therapies. Findings and discharge diagnosis discussed with patient/family followed by verbalization of understanding. Patient and wish for help presenting alcohol withdrawals as the patient desperately wishes to kick the habit Return precautions discussed with patient/family whom verbalize understanding. Discharge Plan Departure Patient Disposition: Home Clinical Impression: Vasovagal syncope, Choking episode Discharge Date/Time: 10/22/18 00:15 Interventions: ED Discharge Assessment Last Done: 10/22/18 00:15 Instructions: DI for Syncope in Adults (Fainting) Activity Restrictions/Additional Instructions: *You have been diagnosed with [choking episode with subsequent syncope] *What to do: * continue to take medications as directed *Follow up with your primary care provider in 2-3 days, call for an appointment. Let them know you were seen in the Emergency Department and that we ask that you be seen in follow up *Return to ER if you should have any new, worsening or concerning symptoms] Prescriptions: New chlordiazepoxide HCl 25 mg capsule 25 mg PO Q8H PRN (Reason: alcohol withdrawal) Qty: 32 RF: 0 No Action metoprolol succinate 100 MG tablet extended release 24 hr 100 mg PO QDAY Qty: 0 RF: 0 alprazolam [Xanax] 0.5 MG tablet 1 mg PO DAILY Qty: 0 RF: 0 ibuprofen 600 MG tablet 600 mg PO TID PRN (Reason: Pain (Scale Score 4-6)) Qty: 0 RF: 0 chlordiazepoxide HCl 25 mg capsule See Rx Instructions .ROUTE .COMPLEX Qty: 32 RF: 0
[2018-10-21 22:55] LABS: Troponin I < 0.012 ng/mL (0.01-0.034)
[2018-10-21] MEDS: SODIUM CHLORIDE 0.9% 1,000 ML 1000 ML IV (22:56)
[2018-10-21 22:59] LABS: CKMB % Relative Index 0.9 % (1.5-5.0); Creatine Kinase MB 5.15 ng/mL (<2.37)
[2018-10-21 23:00] VITALS: BP 104/63; PULSE 75; RESP 13; O2SAT 96
[2018-10-21 23:00] LABS: Prolactin 22.7 ng/mL (3.7-17.9)
[2018-10-21 23:30] VITALS: BP 101/61; PULSE 72; RESP 14; O2SAT 95
[2018-10-22] VITALS: BP 101/59; PULSE 73; RESP 14; O2SAT 96
--- NOTE | 2018-10-22 00:10 | PC.NURSE ---
Fluids completed at 0000 w/0 ml waste.
== END 2018-10-22 00:15 | disposition home or self-care (01) ==
PROVIDERS: Emergency Provider Emergency Medicine
DX: R09.89 Other specified symptoms and signs involving the circulatory and respiratory systems (principal); R55 Syncope and collapse
CPT/HCPCS: 71045; 80053; 80320; 82550; 82553; 84146; 84484; 85025; 93005; 96360; 99283; 99284

== ENCOUNTER 2019-02-02 23:17 | Emergency (ER) | payer OTHER, SELFPAY ==
[2019-02-02 23:23] VITALS: BP 98/51; PULSE 81; RESP 15; TEMP 36.5; O2SAT 99; BMI 32.5
--- NOTE | 2019-02-02 23:29 | ED.GIBLEED ---
HPI - GI Bleed General Chief complaint: GI Bleed Stated complaint: GI bleed Time Seen by Provider: 02/02/19 23:25 Source: patient Mode of arrival: EMS Limitations: no limitations History of Present Illness HPI Narrative: The patient developed hematemesis and at home prior to arrival. He has no ongoing vomiting. he denies abdominal pain at this time. He was incontinent stool during the violent vomiting that was occurring. He denies blood per rectum. There was near syncope associated with vomiting. he had 4 shots of Tequila today. He admits to bed a regular alcohol user. He has no prior history of upper GI bleed. He has no prior diagnosis of varices. He has never undergone EGD. He did undergo CT evaluation March 2018 at this facility. He is a pattern megaly. There is suggestion of cirrhosis. Is no abdominal bloating, or lower extremity edema. He has no chest pain or dyspnea. He has no bleeding/clotting disorders. Related Data Home Medications Medication Instructions Recorded Confirmed alprazolam [Xanax] 1 mg PO DAILY #0 09/20/16 03/27/18 ibuprofen 600 mg PO TID PRN #0 09/20/16 03/27/18 metoprolol succinate 100 mg PO QDAY #0 09/20/16 03/27/18 Previous Rx's Medication Instructions Recorded chlordiazepoxide HCl See Rx Instructions .ROUTE 03/27/18 .COMPLEX #32 cap chlordiazepoxide HCl 25 mg PO Q8H PRN #32 cap 10/22/18 Allergies Allergy/AdvReac Type Severity Reaction Status Date / Time No Known Drug Allergies Allergy Verified 03/27/18 19:25 Review of Systems Review of Systems ROS Unobtainable: All systems reviewed & are unremarkable except as noted in HPI and below Constitutional Denies chills, Denies fever(s) and Denies weakness ENT Ears, Nose, Mouth, and Throat: Denies dysphagia and Denies mouth pain Comments: No sore throat Cardiovascular Denies chest pain, Denies irregular heart rhythm, Denies palpitations, Denies dyspnea and Denies orthopnea Respiratory Denies cough, Denies dyspnea and Denies wheezing Gastrointestinal Gastrointestinal: Denies abdominal pain, Denies melena, Denies bloating and Denies dysphagia Comments: Emesis of bright red blood. Genitourinary Denies dysuria Musculoskeletal Denies back pain and Denies numbness Integumentary/Breasts Denies pruritus, Denies erythema, Denies rash and Denies wounds Neurologic Denies numbness and Denies weakness Endocrine Denies palpitations Hematologic/Lymphatic Denies easy bleeding and Denies easy bruising Allergic/Immunologic Denies wheezing [facility] Medical History (Updated 02/03/19 @ 00:44 by Rik Ruffin MD) Cirrhosis (Acute) Hypertension (Acute) Surgical History (Updated 02/02/19 @ 23:44 by Rik Ruffin MD) No pertinent past surgical history (Acute) Social History (Updated 02/02/19 @ 23:45 by Rik Ruffin MD) Smoking Status: Never smoker alcohol intake: current Social History (Updated 02/02/19 @ 23:45 by Rik Ruffin MD) Smoking Status: Never smoker alcohol intake: current Exam Initial Vital Signs Initial Vital Signs: Vital Signs Temperature 97.7 F 02/02/19 23:23 Pulse Rate 81 02/02/19 23:23 Respiratory Rate 15 02/02/19 23:23 Blood Pressure 98/51 L 02/02/19 23:23 Pulse Oximetry 99 02/02/19 23:23 Const General: cooperative and well developed Nutritional Appearance: well nourished Orientation: alert, awake, oriented x3 and not confused HENMT Nose: nares normal Mouth: oral mucosae normal Throat: posterior oropharynx normal Eyes Conjunctivae: conjunctivae normal Sclera: sclerae normal Neck Neck: No lymphadenopathy and No JVD Resp Effort & Inspection: normal respiratory effort, able to speak in complete sentences, no respiratory distress and no use of accessory muscles Auscultation: clear to auscultation bilaterally, no rales, no rhonchi and no wheezes Cardio Rate: regular rate Rhythm: regular rhythm Heart Sounds: no click, no gallops, no murmurs and no rubs Pulses: normal peripheral pulses GI Inspection: non-distended Palpation: soft, no hepatosplenomegaly, No guarding, No pulsatile mass and No tender Auscultation: normal bowel sounds Back/Spine/Pelvis Back: normal to inspection and No back tenderness Skin General: no rashes or lesions noted, No jaundice and No petechiae Other: Smears of blood across his face, and abdomen from earlier bleeding as discussed in HPI. Neuro General: alert, oriented x3, gait normal and no focal motor deficits Speech: speech normal Extrem General: No no pedal edema and No no calf tenderness Psych Appearance: well kempt Mental Status: mental status grossly normal Attitude: cooperative Thought Content: normal Course Course Narrative: 23:45. 02/02/2019. The patient presents with upper GI bleeding, likely varices. Two IVs are started. He is receiving IV fluids, Protonix, and Octreotide. He is a Jehovah Witness, and declines blood transfusion. 00:20. 02/02/2019. The patient's initial blood pressure was 90s. The patient dropped to 71 systolic, additional IV fluids were given. He can use of strong peripheral pulses, is oriented x3. His heart rate is in the 70/80s. He is on a beta-chloe. His H/H was October, has dropped to 11 tonight without IV hydration. GI, Dr. Mandujano at [facility] was consulted. He has agreed to see the patient in consult. Dr. Rodríguez, hospitalist has agreed to accept the patient in transfer. The patient has 2 large-bore IVs. He is receiving IV fluids. He has received IV Protonix 80 mg, Octretide bolus and drip, and Rocephin. He has an upper GI bleed, likely varices. He requires transfer for higher level care, he needs to see a precision lens centerer and edger. His blood pressure is still in the upper 80s at the time transfer. He has not improved since arrival, but I have no other recourse here other than to give blood. The patient refuses. My thanks to the physicians at [facility] for their assistance with this case. Orders Ordered: ED Orders 02/02/19 23:25 Complete Blood Count AUTO DIFF Stat Comprehensive Metabolic Panel Stat Partial Thromboplastin Time Stat Prothrombin Time INR Stat Type and Screen Stat 02/03/19 00:06 Ethanol (ETOH) Stat Octreotide Acetate 500 mcg/ (Sodium Chloride) 101 mls @ 5.05 mls/hr IV CONT ROBERTO Last Admin: 02/03/19 00:39 Dose: 25 mcg/hr, 5.05 mls/hr Sodium Chloride (Normal Saline 0.9%) 1,000 mls @ 250 mls/hr IV CONT ROBERTO Last Admin: 02/03/19 00:39 Dose: 250 mls/hr Discontinued Medications Ceftriaxone Sodium/Dextrose (Rocephin) 1 gm in 50 mls @ 100 mls/hr IV NOW ONE Stop: 02/03/19 00:05 Last Infusion: 02/03/19 00:25 Dose: 0 mls/hr Admin: 02/02/19 23:43 Dose: 100 mls/hr Octreotide Acetate (Sandostatin) 50 mcg IV NOW ONE Stop: 02/02/19 23:37 Last Admin: 02/03/19 00:38 Dose: 50 mcg Ondansetron HCl (Zofran) 4 mg IV NOW ONE Stop: 02/02/19 23:31 Last Admin: 02/02/19 23:37 Dose: 4 mg Pantoprazole Sodium (Protonix) 80 mg IV NOW ONE Stop: 02/02/19 23:37 Last Admin: 02/02/19 23:43 Dose: 80 mg Vital Signs - 8 hr 02/02/19 23:23 02/02/19 23:55 02/03/19 00:00 Temperature 97.7 F Pulse Rate 81 Respiratory Rate 15 Blood Pressure 98/51 L Blood Pressure [Right Arm] 65/52 L 77/34 L Pulse Oximetry 99 02/03/19 00:13 02/03/19 00:30 Temperature Pulse Rate 83 77 Respiratory Rate Blood Pressure Blood Pressure [Right Arm] 81/39 L 86/41 L Pulse Oximetry 94 MDM - GI Bleed Lab Data Result diagrams: 02/02/19 23:25 02/02/19 23:25 Lab Results 02/02/19 02/02/19 02/02/19 Range/Units 23:25 23:25 23:25 WBC 6.0 (4.5-11.0) X10^3/uL RBC 3.14 L (4.5-5.9) X10^6/uL Hgb 11.5 L (13.5-17.5) g/dL Hct 33.8 L (41-53) % MCV 107.4 H (80-100) fL MCH 36.7 H (26-34) PG MCHC 34.2 (30-36) % RDW 15.7 H (11.6-14.8) % Plt Count 61 L (150-400) X10^3/uL Neut % (Auto) 44.1 L (50-75) % Lymph % (Auto) 35.3 (25-40) % [place] % (Auto) 12.4 (3-14) % Eos % (Auto) 7.1 H (2-4) % Baso % (Auto) 1.1 (0-2) % Neut # (Auto) 2700 (0023-6053) /uL Lymph # (Auto) 2100 (7449-5726) /uL [place] # (Auto) 700 (0-900) /uL Eos # (Auto) 400 (0-450) /uL Baso # (Auto) 100 (0-100) /uL PT 16.6 H (10.1-12.7) SECONDS INR 1.4 H (0.9-1.3) APTT 33 (26.4-36.2) SECONDS Sodium 141 (137-145) mmol/L Potassium 3.6 (3.4-5.1) mmol/L Chloride 105 (98-107) mmol/L Carbon Dioxide 30 (22-32) mmol/L BUN 12 (9-20) mg/dL Creatinine 1.00 (0.66-1.25) mg/dL Estimated GFR > 60.0 (>60) mL/min BUN/Creatinine Ratio 12.0 (6-22) Glucose 158 H (70-100) mg/dL Calcium 8.3 L (8.4-10.2) mg/dL Total Bilirubin 2.4 H (0.2-1.3) mg/dL AST 93 H (17-59) IU/L ALT 38 (21-72) IU/L Alkaline Phosphatase 240 H (38-126) U/L Total Protein 6.6 (6.3-8.2) g/dL Albumin 2.9 L (3.5-5.0) g/dL Globulin 3.7 (1.7-4.1) g/dL Albumin/Globulin Ratio 0.8 L (1.0-2.8) Ethyl Alcohol ( - 10) mg/dL 02/02/19 Range/Units 23:25 WBC (4.5-11.0) X10^3/uL RBC (4.5-5.9) X10^6/uL Hgb (13.5-17.5) g/dL Hct (41-53) % MCV (80-100) fL MCH (26-34) PG MCHC (30-36) % RDW (11.6-14.8) % Plt Count (150-400) X10^3/uL Neut % (Auto) (50-75) % Lymph % (Auto) (25-40) % [place] % (Auto) (3-14) % Eos % (Auto) (2-4) % Baso % (Auto) (0-2) % Neut # (Auto) (6740-0536) /uL Lymph # (Auto) (1698-2127) /uL [place] # (Auto) (0-900) /uL Eos # (Auto) (0-450) /uL Baso # (Auto) (0-100) /uL PT (10.1-12.7) SECONDS INR (0.9-1.3) APTT (26.4-36.2) SECONDS Sodium (137-145) mmol/L Potassium (3.4-5.1) mmol/L Chloride (98-107) mmol/L Carbon Dioxide (22-32) mmol/L BUN (9-20) mg/dL Creatinine (0.66-1.25) mg/dL Estimated GFR (>60) mL/min BUN/Creatinine Ratio (6-22) Glucose (70-100) mg/dL Calcium (8.4-10.2) mg/dL Total Bilirubin (0.2-1.3) mg/dL AST (17-59) IU/L ALT (21-72) IU/L Alkaline Phosphatase (38-126) U/L Total Protein (6.3-8.2) g/dL Albumin (3.5-5.0) g/dL Globulin (1.7-4.1) g/dL Albumin/Globulin Ratio (1.0-2.8) Ethyl Alcohol 227 H ( - 10) mg/dL Critical Care Time Critical Care Time: Yes Total Critical Care Time: 40 Attestation: Critical care time includes the initial history and exam, review of past medical records, medical decision making, evaluation of new lab data and consultation with accepting physicians. [facility]charge Plan [facility] Impression: Acute upper gastrointestinal bleeding, Alcoholism Prescriptions: No Action metoprolol succinate 100 MG tablet extended release 24 hr 100 mg PO QDAY Qty: 0 RF: 0 alprazolam [Xanax] 0.5 MG tablet 1 mg PO DAILY Qty: 0 RF: 0 ibuprofen 600 MG tablet 600 mg PO TID PRN (Reason: Pain (Scale Score 4-6)) Qty: 0 RF: 0 chlordiazepoxide HCl 25 mg capsule See Rx Instructions .ROUTE .COMPLEX Qty: 32 RF: 0 chlordiazepoxide HCl 25 mg capsule 25 mg PO Q8H PRN (Reason: alcohol withdrawal) Qty: 32 RF: 0
[2019-02-02] MEDS: ONDANSETRON 4 MG/2 ML INJ IV (23:37)
[2019-02-02] MEDS: PANTOPRAZOLE 40 MG VIAL 80 MG IV (23:43)
[2019-02-02] MEDS: CEFTRIAXONE 1 GM/50 ML FROZ.PIGGY IV (23:43)
[2019-02-02 23:46] LABS: Add Manual Diff / Slide Review NO; Basophils Absolute Auto 100 /uL (0-100); Basophils Percent Auto 1.1 % (0-2); Eosinophils Absolute Auto 400 /uL (0-450); Eosinophils Percent Auto 7.1 % (2-4); Hematocrit 33.8 % (41-53); Hemoglobin 11.5 g/dL (13.5-17.5); Lymphocytes Absolute Auto 2100 /uL (1100-4500); Lymphocytes Percent Auto 35.3 % (25-40); Mean Corpuscular HGB Conc 34.2 % (30-36); Mean Corpuscular Hemoglobin 36.7 PG (26-34); Mean Corpuscular Volume 107.4 fL (80-100); Monocytes Absolute Auto 700 /uL (0-900); Monocytes Percent Auto 12.4 % (3-14); Neutrophils Absolute Auto 2700 /uL (1500-7000); Neutrophils Percent Auto 44.1 % (50-75); Platelet Count 61 X10^3/uL (150-400); Red Blood Cell Count 3.14 X10^6/uL (4.5-5.9); Red Cell Distribution Width 15.7 % (11.6-14.8)
--- NOTE | 2019-02-02 23:49 | ED_ITS ---
HPI - GI Bleed General Chief complaint: GI Bleed Stated complaint: GI bleed Time Seen by Provider: 02/02/19 23:25 Source: patient Mode of arrival: EMS Limitations: no limitations History of Present Illness HPI Narrative: The patient developed hematemesis and at home prior to arrival. He has no ongoing vomiting. he denies abdominal pain at this time. He was incontinent stool during the violent vomiting that was occurring. He denies blood per rectum. There was near syncope associated with vomiting. he had 4 shots of Tequila today. He admits to bed a regular alcohol user. He has no prior history of upper GI bleed. He has no prior diagnosis of varices. He has never undergone EGD. He did undergo CT evaluation March 2018 at this facility. He is a pattern megaly. There is suggestion of cirrhosis. Is no abdominal bloating, or lower extremity edema. He has no chest pain or dyspnea. He has no bleeding/clotting disorders. Related Data Home Medications Medication Instructions Recorded Confirmed alprazolam [Xanax] 1 mg PO DAILY #0 09/20/16 03/27/18 ibuprofen 600 mg PO TID PRN #0 09/20/16 03/27/18 metoprolol succinate 100 mg PO QDAY #0 09/20/16 03/27/18 Previous Rx's Medication Instructions Recorded chlordiazepoxide HCl See Rx Instructions .ROUTE 03/27/18 .COMPLEX #32 cap chlordiazepoxide HCl 25 mg PO Q8H PRN #32 cap 10/22/18 Allergies Allergy/AdvReac Type Severity Reaction Status Date / Time No Known Drug Allergies Allergy Verified 03/27/18 19:25 Review of Systems Review of Systems ROS Unobtainable: All systems reviewed & are unremarkable except as noted in HPI and below Constitutional Denies chills, Denies fever(s) and Denies weakness ENT Ears, Nose, Mouth, and Throat: Denies dysphagia and Denies mouth pain Comments: No sore throat Cardiovascular Denies chest pain, Denies irregular heart rhythm, Denies palpitations, Denies dyspnea and Denies orthopnea Respiratory Denies cough, Denies dyspnea and Denies wheezing Gastrointestinal Gastrointestinal: Denies abdominal pain, Denies melena, Denies bloating and Denies dysphagia Comments: Emesis of bright red blood. Genitourinary Denies dysuria Musculoskeletal Denies back pain and Denies numbness Integumentary/Breasts Denies pruritus, Denies erythema, Denies rash and Denies wounds Neurologic Denies numbness and Denies weakness Endocrine Denies palpitations Hematologic/Lymphatic Denies easy bleeding and Denies easy bruising Allergic/Immunologic Denies wheezing [facility] Medical History (Updated 02/03/19 @ 00:44 by Rik Ruffin MD) Cirrhosis (Acute) Hypertension (Acute) Surgical History (Updated 02/02/19 @ 23:44 by Rik Ruffin MD) No pertinent past surgical history (Acute) Social History (Updated 02/02/19 @ 23:45 by Rik Ruffin MD) Smoking Status: Never smoker alcohol intake: current Social History (Updated 02/02/19 @ 23:45 by Rik Ruffin MD) Smoking Status: Never smoker alcohol intake: current Exam Initial Vital Signs Initial Vital Signs: Vital Signs Temperature 97.7 F 02/02/19 23:23 Pulse Rate 81 02/02/19 23:23 Respiratory Rate 15 02/02/19 23:23 Blood Pressure 98/51 L 02/02/19 23:23 Pulse Oximetry 99 02/02/19 23:23 Const General: cooperative and well developed Nutritional Appearance: well nourished Orientation: alert, awake, oriented x3 and not confused HENMT Nose: nares normal Mouth: oral mucosae normal Throat: posterior oropharynx normal Eyes Conjunctivae: conjunctivae normal Sclera: sclerae normal Neck Neck: No lymphadenopathy and No JVD Resp Effort & Inspection: normal respiratory effort, able to speak in complete sentences, no respiratory distress and no use of accessory muscles Auscultation: clear to auscultation bilaterally, no rales, no rhonchi and no wheezes Cardio Rate: regular rate Rhythm: regular rhythm Heart Sounds: no click, no gallops, no murmurs and no rubs Pulses: normal peripheral pulses GI Inspection: non-distended Palpation: soft, no hepatosplenomegaly, No guarding, No pulsatile mass and No te nder Auscultation: normal bowel sounds Back/Spine/Pelvis Back: normal to inspection and No back tenderness Skin General: no rashes or lesions noted, No jaundice and No petechiae Other: Smears of blood across his face, and abdomen from earlier bleeding as discussed in HPI. Neuro General: alert, oriented x3, gait normal and no focal motor deficits Speech: speech normal Extrem General: No no pedal edema and No no calf tenderness Psych Appearance: well kempt Mental Status: mental status grossly normal Attitude: cooperative Thought Content: normal Course Course Narrative: 23:45. 02/02/2019. The patient presents with upper GI bleeding, likely varices. Two IVs are started. He is receiving IV fluids, P rotonix, and Octreotide. He is a Jehovah Witness, and declines blood transfusion. 00:20. 02/02/2019. The patient's initial blood pressure was 90s. The patient dropped to 71 systolic, additional IV fluids were given. He can use of strong peripheral pulses, is oriented x3. His heart rate is in the 70/80s. He is on a beta-chloe. His H/H was October, has dropped to tonight without IV hydration. GI, Dr. Mandujano at [facility] was consulted. He has agreed to see the patient in consult. Dr. Rodríguez, hospitalist has agreed to accept the patient in transfer. The patient has 2 large-bore IVs. He is receiving IV fluids. He has received IV Protonix 80 mg, Octretide bolus and drip, and Rocephin. He has an upper GI bleed, likely varices. He requires transfer for higher level care, he needs to see a fisher terrapin. His blood pressure is still in the upper 80s at the time transfer. He has not improved since arrival, but I have no other recourse here other than to give blood. The patient refuses. My thanks to the physicians at [facility] for their assistance with this case. Orders Ordered: ED Orders 02/02/19 23:25 Complete Blood Count AUTO DIFF Stat Comprehensive Metabolic Panel Stat Partial Thromboplastin Time Stat Prothrombin Time INR Stat Type and Screen Stat 02/03/19 00:06 Ethanol (ETOH) Stat Octreotide Acetate 500 mcg/ (Sodium Chloride) 101 mls @ 5.05 mls/hr IV CONT ROBERTO Last Admin: 02/03/19 00:39 Dose: 25 mcg/hr, 5.05 mls/hr Sodium Chloride (Normal Saline 0.9%) 1,000 mls @ 250 mls/hr IV CONT ROBERTO Last Admin: 02/03/19 00:39 Dose: 250 mls/hr Discontinued Medications Ceftriaxone Sodium/Dextrose (Rocephin) 1 gm in 50 mls @ 100 mls/hr IV NOW ONE Stop: 02/03/19 00:05 Last Infusion: 02/03/19 00:25 Dose: 0 mls/hr Admin: 02/02/19 23:43 Dose: 100 mls/hr Octreotide Acetate (Sandostatin) 50 mcg IV NOW ONE Stop: 02/02/19 23:37 Last Admin: 02/03/19 00:38 Dose: 50 mcg Ondansetron HCl (Zofran) 4 mg IV NOW ONE Stop: 02/02/19 23:31 Last Admin: 02/02/19 23:37 Dose: 4 mg Pantoprazole Sodium (Protonix) 80 mg IV NOW ONE Stop: 02/02/19 23:37 Last Admin: 02/02/19 23:43 Dose: 80 mg Vital Signs - 8 hr 02/02/19 23:23 02/02/19 23:55 02/03/19 00:00 Temperature 97.7 F Pulse Rate 81 Respiratory Rate 15 Blood Pressure 98/51 L Blood Pressure [Right Arm] 65/52 L 77/34 L Pulse Oximetry 99 02/03/19 00:13 02/03/19 00:30 Temperature Pulse Rate 83 77 Respiratory Rate Blood Pressure Blood Pressure [Right Arm] 81/39 L 86/41 L Pulse Oximetry 94 MDM - GI Bleed Lab Data Result diagrams: 02/02/19 23:25 02/02/19 23:25 Lab Results 02/02/19 02/02/19 02/02/19 Range/Units 23:25 23:25 23:25 WBC 6.0 (4.5-11.0) X10^3/uL RBC 3.14 L (4.5-5.9) X10^6/uL Hgb 11.5 L (13.5-17.5) g/dL Hct 33.8 L (41-53) % MCV 107.4 H (80-100) fL MCH 36.7 H (26-34) PG MCHC 34.2 (30-36) % RDW 15.7 H (11.6-14.8) % Plt Count 61 L (150-400) X10^3/uL Neut % (Auto) 44.1 L (50-75) % Lymph % (Auto) 35.3 (25-40) % [place] % (Auto) 12.4 (3-14) % Eos % (Auto) 7.1 H (2-4) % Baso % (Auto) 1.1 (0-2) % Neut # (Auto) 2700 (1872-8920) /uL Lymph # (Auto) 2100 (5759-8403) /uL [place] # (Auto) 700 (0-900) /uL Eos # (Auto) 400 (0-450) /uL Baso # (Auto) 100 (0-100) /uL PT 16.6 H (10.1-12.7) SECONDS INR 1.4 H (0.9-1.3) APTT 33 (26.4-36.2) SECONDS Sodium 141 (137-145) mmol/L Potassium 3.6 (3.4-5.1) mmol/L Chloride 105 (98-107) mmol/L Carbon Dioxide 30 (22-32) mmol/L BUN 12 (9-20) mg/dL Creatinine 1.00 (0.66-1.25) mg/dL Estimated GFR > 60.0 (>60) mL/min BUN/Creatinine Ratio 12.0 (6-22) Glucose 158 H (70-100) mg/dL Calcium 8.3 L (8.4-10.2) mg/dL Total Bilirubin 2.4 H (0.2-1.3) mg/dL AST 93 H (17-59) IU/L ALT 38 (21-72) IU/L Alkaline Phosphatase 240 H (38-126) U/L Total Protein 6.6 (6.3-8.2) g/dL Albumin 2.9 L (3.5-5.0) g/dL Globulin 3.7 (1.7-4.1) g/dL Albumin/Globulin Ratio 0.8 L (1.0-2.8) Ethyl Alcohol ( - 10) mg/dL 02/02/19 Range/Units 23:25 WBC (4.5-11.0) X10^3/uL RBC (4.5-5.9) X10^6/uL Hgb (13.5-17.5) g/dL Hct (41-53) % MCV (80-100) fL MCH (26-34) PG MCHC (30-36) % RDW (11.6-14.8) % Plt Count (150-400) X10^3/uL Neut % (Auto) (50-75) % Lymph % (Auto) (25-40) % [place] % (Auto) (3-14) % Eos % (Auto) (2-4) % Baso % (Auto) (0-2) % Neut # (Auto) (4808-3212) /uL Lymph # (Auto) (6674-4866) /uL [place] # (Auto) (0-900) /uL Eos # (Auto) (0-450) /uL Baso # (Auto) (0-100) /uL PT (10.1-12.7) SECONDS INR (0.9-1.3) APTT (26.4-36.2) SECONDS Sodium (137-145) mmol/L Potassium (3.4-5.1) mmol/L Chloride (98-107) mmol/L Carbon Dioxide (22-32) mmol/L BUN (9-20) mg/dL Creatinine (0.66-1.25) mg/dL Estimated GFR (>60) mL/min BUN/Creatinine Ratio (6-22) Glucose (70-100) mg/dL Calcium (8.4-10.2) mg/dL Total Bilirubin (0.2-1.3) mg/dL AST (17-59) IU/L ALT (21-72) IU/L Alkaline Phosphatase (38-126) U/L Total Protein (6.3-8.2) g/dL Albumin (3.5-5.0) g/dL Globulin (1.7-4.1) g/dL Albumin/Globulin Ratio (1.0-2.8) Ethyl Alcohol 227 H ( - 10) mg/dL Critical Care Time Critical Care Time: Yes Total Critical Care Time: 40 Attestation: Critical care time includes the initial history and exam, review of past medical records, medical decision making, evaluation of new lab data and consultation with accepting physicians. Discharge Plan Departure Patient Disposition: [facility] Clinical Impression: Acute upper gastrointestinal bleeding, Alcoholism Prescriptions: No Action metoprolol succinate 100 MG tablet extended release 24 hr 100 mg PO QDAY Qty: 0 RF: 0 alprazolam [Xanax] 0.5 MG tablet 1 mg PO DAILY Qty: 0 RF: 0 ibuprofen 600 MG tablet 600 mg PO TID PRN (Reason: Pain (Scale Score 4-6)) Qty: 0 RF: 0 chlordiazepoxide HCl 25 mg capsule See Rx Instructions .ROUTE .COMPLEX Qty: 32 RF: 0 chlordiazepoxide HCl 25 mg capsule 25 mg PO Q8H PRN (Reason: alcohol withdrawal) Qty: 32 RF: 0
[2019-02-02 23:51] LABS: INR 1.4 (0.9-1.3); Prothrombin Time 16.6 SECONDS (10.1-12.7)
[2019-02-02 23:54] LABS: PTT Partial Thromboplastin Tim 33 SECONDS (26.4-36.2)
[2019-02-02 23:55] VITALS: BP 65/52
--- NOTE | 2019-02-02 23:55 | PC.NURSE ---
Pt arrives covered in stool and blood. Pt cleaned up to the best of my ability per his request. Pt does not allow care to be resumed until he is clean.
[2019-02-02 23:56] LABS: Alanine Aminotransferase 38 IU/L (21-72); Albumin 2.9 g/dL (3.5-5.0); Albumin Globulin Ratio 0.8 (1.0-2.8); Alkaline Phosphatase 240 U/L (38-126); Aspartate Aminotransferase 93 IU/L (17-59); Bilirubin Total 2.4 mg/dL (0.2-1.3); Blood Urea Nitrogen 12 mg/dL (9-20); Calcium 8.3 mg/dL (8.4-10.2); Carbon Dioxide 30 mmol/L (22-32); Chloride 105 mmol/L (98-107); Estimated Glomerular Filt Rate > 60.0 mL/min (>60); Globulin 3.7 g/dL (1.7-4.1); Glucose 158 mg/dL (70-100); HEMOLYSIS < 15 (0-50); Potassium 3.6 mmol/L (3.4-5.1); Sodium 141 mmol/L (137-145); Total Protein 6.6 g/dL (6.3-8.2)
[2019-02-03] VITALS: BP 77/34
--- NOTE | 2019-02-03 | PC.NURSE ---
Conversation with patient regarding blood products. Informed of need to sign consent in order to do ordered type and cross. Pt declines and states he does not want blood products and does not want to sign consent for blood products. Pt states he is Jehovah witness. Attempt to have pt sign refusal form and patient states he needs his here to help with Decisions. PAOLA Henry is on the phone with pt updating her and requesting she comes in. Is aware of situation and informs pt that he will treat him as he wishes until further notice.
[2019-02-03 00:13] VITALS: BP 81/39; PULSE 83
[2019-02-03 00:18] LABS: Ethanol (ETOH) 227 mg/dL
--- NOTE | 2019-02-03 00:29 | PC.NURSE ---
pt finished one liter NS from medic. Second bolus started pr dr order.
[2019-02-03 00:30] VITALS: BP 86/41; PULSE 77; O2SAT 94
[2019-02-03 00:35] VITALS: BP 86/42; PULSE 80; RESP 14; O2SAT 94
[2019-02-03] MEDS: OCTREOTIDE 100 MCG/ML VIAL 50 MCG IV (00:38)
[2019-02-03] MEDS: SODIUM CHLORIDE 0.9% 1,000 ML 250 ML IV (00:39)
[2019-02-03] MEDS: OCTREOTIDE 500 MCG in SODIUM CHLORIDE 0.9% 100 ML 5.05 ML IV (00:39)
[2019-02-03 00:51] VITALS: BP 82/40; PULSE 74; O2SAT 95
--- NOTE | 2019-02-03 00:52 | PC.NURSE ---
Pt signed blood refusal form
--- NOTE | 2019-02-03 01:43 | PC.NURSE ---
pt transferred to [facility] with Octriotide running at 5.05 mL/hr. medication stopped in computer per protocol
== END 2019-02-03 00:51 | disposition short-term general hospital (02) ==
PROVIDERS: Emergency Provider Emergency Medicine
DX: K92.2 Gastrointestinal hemorrhage, unspecified (principal); F10.20 Alcohol dependence, uncomplicated
CPT/HCPCS: 36591; 80053; 80320; 85025; 85610; 85730; 86850; 86900; 86901; 96365; 96367; 96375; 99283; 99291; C9113; J2354; J2405

== ENCOUNTER → 2019-03-14 12:17 | Outpatient (CLI) | payer OTHER, SELFPAY ==
[2019-03-14 13:12] LABS: Hematocrit 37.6 % (41-53); Hemoglobin 12.8 g/dL (13.5-17.5); Mean Corpuscular Hemoglobin 34.5 PG (26-34); Mean Corpuscular Volume 101.3 fL (80-100); Platelet Count 63 X10^3/uL (150-400); Red Blood Cell Count 3.72 X10^6/uL (4.5-5.9); Red Cell Distribution Width 15.1 % (11.6-14.8); White Blood Cell Count 4.1 X10^3/uL (4.5-11.0)
[2019-03-14 13:19] LABS: INR 1.4 (0.9-1.3); Prothrombin Time 15.8 SECONDS (10.1-12.7)
[2019-03-14 13:55] LABS: HEMOLYSIS < 15 (0-50); Iron 149 ug/dL (49-181)
[2019-03-14 13:58] LABS: Alanine Aminotransferase 54 IU/L (21-72); Albumin Globulin Ratio 0.8 (1.0-2.8); Alkaline Phosphatase 271 U/L (38-126); Aspartate Aminotransferase 85 IU/L (17-59); BUN Creatinine Ratio 13.3 (6-22); Bilirubin Total 2.4 mg/dL (0.2-1.3); Blood Urea Nitrogen 8 mg/dL (9-20); Calcium 8.9 mg/dL (8.4-10.2); Carbon Dioxide 29 mmol/L (22-32); Chloride 105 mmol/L (98-107); Estimated Glomerular Filt Rate > 60.0 mL/min (>60); Globulin 3.7 g/dL (1.7-4.1); Glucose 93 mg/dL (70-100); HEMOLYSIS < 15 (0-50); Potassium 4.6 mmol/L (3.4-5.1); Sodium 140 mmol/L (137-145); Total Protein 6.7 g/dL (6.3-8.2)
[2019-03-14 14:07] LABS: Percent Iron Saturation 59 % (20-50); Total Iron Binding Capacity 252 ug/dL (261-462); Transferrin 185 mg/dL (206-381)
[2019-03-16 14:47] LABS: Ceruloplasmin 26 mg/dL (18-36)
[2019-03-16 14:50] LABS: Alpha 1 Anti Trypsin 139 mg/dL (83-199)
[2019-03-18 15:08] LABS: ANA Screen, IFA NEGATIVE (NEGATIVE)
== END ==
PROVIDERS: Family Provider Nurse Practitioner Family; PCP Nurse Practitioner Family; Visit Provider Internal Medicine Gastroenterology
DX: K70.31 Alcoholic cirrhosis of liver with ascites (principal)
CPT/HCPCS: 36415; 80053; 82103; 82390; 83540; 83550; 85027; 85610; 86038; 86255

== ENCOUNTER → 2019-04-09 17:36 | Outpatient (CLI) | payer SELFPAY ==
[2019-04-09 19:36] LABS: C-Reactive Protein Quant 0.7 mg/dL (<1.0)
[2019-04-09 19:38] LABS: Add Manual Diff / Slide Review NO; Basophils Absolute Auto 0 /uL (0-100); Basophils Percent Auto 0.9 % (0-2); Eosinophils Absolute Auto 400 /uL (0-450); Eosinophils Percent Auto 8.8 % (2-4); Hematocrit 41.8 % (41-53); Hemoglobin 14.1 g/dL (13.5-17.5); Lymphocytes Absolute Auto 1000 /uL (1100-4500); Lymphocytes Percent Auto 24.5 % (25-40); Mean Corpuscular HGB Conc 33.8 % (30-36); Mean Corpuscular Volume 97.8 fL (80-100); Monocytes Absolute Auto 500 /uL (0-900); Monocytes Percent Auto 12.2 % (3-14); Neutrophils Absolute Auto 2200 /uL (1500-7000); Neutrophils Percent Auto 53.6 % (50-75); Platelet Count 84 X10^3/uL (150-400); Red Blood Cell Count 4.27 X10^6/uL (4.5-5.9); Red Cell Distribution Width 17.2 % (11.6-14.8); White Blood Cell Count 4.2 X10^3/uL (4.5-11.0)
[2019-04-09 19:53] LABS: Erythrocyte Sedimentation Rate 22 MM/HR (0-15)
[2019-04-12 10:44] LABS: Anti Mitochondrial ABY IGG < 20.1 Units (< 20.1)
== END ==
PROVIDERS: Family Provider Nurse Practitioner Family; PCP Hospitalist; Visit Provider Internal Medicine Gastroenterology
DX: K70.31 Alcoholic cirrhosis of liver with ascites (principal)
CPT/HCPCS: 81256; 83516; 85025; 85651; 86140

== ENCOUNTER 2019-04-19 15:28 | Emergency (ER) | payer SELFPAY ==
[2019-04-19 15:39] VITALS: BP 157/104; PULSE 88; RESP 18; O2SAT 98; BMI 29.8
--- NOTE | 2019-04-19 16:01 | DI.CT.S_ITS ---
PROCEDURE: CT HEAD/BRAIN WO CON INDICATIONS: head pressure TECHNIQUE: Noncontrast 4.5 mm thick angled axial sections acquired from the foramen magnum to the vertex, with coronal and sagittal reformats. For radiation dose reduction, the following was used: automated exposure control, adjustment of mA and/or kV according to patient size. COMPARISON: [facility], CT, HEAD WITHOUT CONTRAST, 09/20/2016, 19:15. [facility], CT, CT HEAD/BRAIN WO CON, 03/27/2018, 19:59. FINDINGS: Image quality: Excellent. CSF spaces: Basal cisterns are patent. No extra-axial fluid collections. Ventricles are normal in size and shape. Brain: No midline shift. No intracranial masses or hemorrhage. Peoples-white matter interface is normal. Skull and face: Calvarium and visualized facial bones are intact, without suspicious lesions. Sinuses: There is a small mucus retention cyst in the left maxillary sinus. Mastoids are clear. IMPRESSION: 1. No acute intracranial abnormalities. 2. A left maxillary sinus mucus retention cyst. Dictated by: Alberto Duran M.D. on 04/19/2019 at 16:31 Approved by: Alberto Duran M.D. on 04/19/2019 at 16:34
--- NOTE | 2019-04-19 16:41 | ED.HA ---
HPI - Headache General Chief Complaint: Headache Stated Complaint: a lot of pressure in his head,nose bleeds Time Seen by Provider: 04/19/19 16:18 Source: patient Mode of arrival: Ambulatory Limitations: no limitations History of Present Illness HPI Narrative: The patient presents with a headache for 2 days. He complains of a headache above the left brow. He also has mild neck stiffness. He has no associated visual changes, sinus pressure or sore throat. He has no pain with swallowing. He can touch his chin to his chest, but with left-sided neck pain. He has upper back pain there is no associated chest pain or dyspnea. He has no GI symptoms. He has extensive pain in the neck and head when he moves his head laterally. He has no weakness or numbness in lower extremities. He has been taking ibuprofen for pain with little success, pain seems of increased today. He has a history of alcoholism, with varices. The varices have been banded. He no longer drinks alcohol. He has no history of PUD. Related Data Home Medications Medication Instructions Recorded Confirmed nadolol 20 mg tablet 20 mg PO DAILY tab 03/15/19 04/19/19 diphenhydramine HCl 25 mg PO PRN PRN 04/19/19 04/19/19 fluticasone propionate [Flonase 1 spray INTRANASAL BID PRN 04/19/19 04/19/19 Allergy Relief] lactulose 15 ml PO BID 04/19/19 04/19/19 ondansetron 4 mg TRANSLINGUAL Q6H PRN 04/19/19 04/19/19 trazodone 25 - 50 mg PO BEDTIME PRN 04/19/19 04/19/19 Previous Rx's Medication Instructions Recorded mirtazapine 15 mg tablet 15 mg PO BEDTIME #30 tab 04/10/19 methocarbamol 750 mg PO Q6H PRN #20 tab 04/19/19 tramadol 50 mg PO Q6H PRN #20 tab 04/19/19 Allergies Allergy/AdvReac Type Severity Reaction Status Date / Time ciprofloxacin Allergy Rash Verified 04/19/19 15:44 pantoprazole Allergy Rash Verified 04/19/19 15:44 Sulfa (Sulfonamide Allergy Rash Verified 04/19/19 15:44 Antibiotics) Patient History Social History (Updated 03/14/19 @ 16:08 by More Mart CMA) marital status: household members: spouse pets and animals: Yes education level: high school occupational status: unemployed 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 priscilla/church: [employer] leisure activities: other other: Boating/Fishing seatbelt use: always helmet use: Yes water heater temp set < 120 deg: Yes working smoke detector in home: Yes fire extinguisher in home: Yes carbon monox detector in home: Yes firearms in home: No do you feel safe at home: Yes Smoking Status: Former smoker alcohol intake: current substance use type: does not use during the past year weight has: other well-balanced diet: about half the time daily servings fruits/ve-4 caffeine: Yes (Rare/Never drink soda) eating out: rarely or never Type(s) of exercise: walking frequency: 1-2 times per week duration: 30-45 minutes/day additional social history: Recently quit taking alcohol, Light smoker in , Stationary bike. alcohol intake frequency: 0-2 drinks per day Substance Use Type: does not use Exam Initial Vital Signs Initial Vital Signs: Vital Signs Pulse Rate 88 04/19/19 15:39 Respiratory Rate 18 04/19/19 15:39 Blood Pressure 157/104 H 04/19/19 15:39 Pulse Oximetry 98 04/19/19 15:39 Course Course Course Narrative: By his clinical evaluation the patient has a tension headache. Symptoms have resolved with IV Toradol and Valium. He is feeling much better. He has a prior history of alcoholism, associated liver disease, and history of varices. Because this history initial evaluation was done. He has hyperbilirubinemia, much higher than we have seen at this ER before. He is in the care of a aircraft engine dismantler [facility]. Apparently he is supposed to take lactulose. He has been on lactulose for about 2 weeks. This may be contributing to the hyperbilirubinemia. An ultrasound has been ordered. I discussed the case with my partner, Dr. Becker. Medical records have been ordered from [facility]. She will follow up with the ultrasound results, and provided position. My treatment plan for the headache is to treat with Tramadol, and Robaxin. Orders Ordered: ED Orders 04/19/19 16:00 EKG-12 Lead Stat 04/19/19 16:01 CT head/brain wo con Stat 04/19/19 17:00 Complete Blood Count AUTO DIFF Stat Comprehensive Metabolic Panel Stat Lipase Stat Partial Thromboplastin Time Stat Prothrombin Time INR Stat 04/19/19 18:07 US abdomen limited Stat Discontinued Medications Diazepam (Valium) 5 mg PO NOW ONE Stop: 04/19/19 16:53 Last Admin: 04/19/19 17:05 Dose: 5 mg Documented by: FEMI Sodium Chloride (Normal Saline 0.9%) 1,000 mls @ 1,000 mls/hr IV BOLUS ONE Stop: 04/19/19 17:42 Last Infusion: 04/19/19 17:46 Dose: 0 mls/hr Documented by: Admin: 04/19/19 16:48 Dose: 1,000 mls/hr Documented by: FEMI Ketorolac Tromethamine (Toradol) 30 mg IV NOW ONE Stop: 04/19/19 16:53 Last Admin: 04/19/19 17:05 Dose: 30 mg Documented by: FEMI Ondansetron HCl (Zofran) 4 mg IV NOW ONE Stop: 04/19/19 16:44 Last Admin: 04/19/19 16:48 Dose: 4 mg Documented by: FEMI Vital Signs Vital signs: Vital Signs - 8 hr 04/19/19 15:39 04/19/19 16:46 04/19/19 18:17 Pulse Rate 88 95 H 82 Respiratory Rate 18 18 18 Blood Pressure 157/104 H Blood Pressure [Left Arm] 137/80 147/100 H Pulse Oximetry 98 99 98 MDM - Headache Lab Data Result diagrams: 04/19/19 17:00 04/19/19 17:00 Labs: Lab Results 04/19/19 04/19/19 04/19/19 Range/Units 17:00 17:00 17:00 WBC 4.5 (4.5-11.0) X10^3/uL RBC 4.10 L (4.5-5.9) X10^6/uL Hgb 13.5 (13.5-17.5) g/dL Hct 39.2 L (41-53) % MCV 95.6 (80-100) fL MCH 32.9 (26-34) PG MCHC 34.4 (30-36) % RDW 16.6 H (11.6-14.8) % Plt Count 61 L (150-400) X10^3/uL Neut % (Auto) 56.2 (50-75) % Lymph % (Auto) 19.7 L (25-40) % [place] % (Auto) 14.5 H (3-14) % Eos % (Auto) 9.1 H (2-4) % Baso % (Auto) 0.5 (0-2) % Neut # (Auto) 2500 (2965-9889) /uL Lymph # (Auto) 900 L (8159-7661) /uL [place] # (Auto) 600 (0-900) /uL Eos # (Auto) 400 (0-450) /uL Baso # (Auto) 0 (0-100) /uL PT 15.2 H (10.1-12.7) SECONDS INR 1.3 (0.9-1.3) APTT 39 H D (26.4-36.2) SECONDS Sodium 136 L (137-145) mmol/L Potassium 4.7 (3.4-5.1) mmol/L Chloride 101 (98-107) mmol/L Carbon Dioxide 27 (22-32) mmol/L BUN 7 L (9-20) mg/dL Creatinine 0.60 L (0.66-1.25) mg/dL Estimated GFR > 60.0 (>60) mL/min BUN/Creatinine Ratio 11.7 (6-22) Glucose 86 (70-100) mg/dL Calcium 9.3 (8.4-10.2) mg/dL Total Bilirubin 7.4 H (0.2-1.3) mg/dL AST 121 H (17-59) IU/L ALT 47 (21-72) IU/L Alkaline Phosphatase 247 H (38-126) U/L Total Protein 7.5 (6.3-8.2) g/dL Albumin 3.6 (3.5-5.0) g/dL Globulin 3.9 (1.7-4.1) g/dL Albumin/Globulin Ratio 0.9 L (1.0-2.8) Lipase 150 (23-300) U/L Imaging Data CT scan - head: Radiologist's impression: 109 Rik Ruffin MD Find Patient Imaging - Balta Jarrett 48 M 1970 ACTIVITY DATE EXAM STATUS AUTHOR 04/19/19 16:01 Signed Abebe Duransilvina [address] [address] [address] Scan Report Signed Patient: Balta Jarrett LMR#: [id number] : 1970Acct:[id number] Age/Sex: 48 / MDate of Service: 04/19/19 Loc: ED Accession Number: [id number] Procedure: CT head/brain wo con Ordering Provider: Rik Ruffin MD PROCEDURE: CT HEAD/BRAIN WO CON INDICATIONS: head pressure TECHNIQUE: Noncontrast 4.5 mm thick angled axial sections acquired from the foramen magnum to the vertex, with coronal and sagittal reformats. For radiation dose reduction, the following was used: automated exposure control, adjustment of mA and/or kV according to patient size. COMPARISON: [facility], CT, HEAD WITHOUT CONTRAST, 09/20/2016, 19:15. [facility], CT, CT HEAD/BRAIN WO CON, 03/27/2018, 19:59. FINDINGS: Image quality: Excellent. CSF spaces: Basal cisterns are patent. No extra-axial fluid collections. Ventricles are normal in size and shape. Brain: No midline shift. No intracranial masses or hemorrhage. Peoples-white matter interface is normal. Skull and face: Calvarium and visualized facial bones are intact, without suspicious lesions. Sinuses: There is a small mucus retention cyst in the left maxillary sinus. Mastoids are clear. IMPRESSION: 1. No acute intracranial abnormalities. 2. A left maxillary sinus mucus retention cyst. Dictated by: Alberto Duran M.D. on 04/19/2019 at 16:31 Approved by: Alberto Duran M.D. on 04/19/2019 at 16:34 Discharge Plan Departure Patient Disposition: Home Clinical Impression: Hyperbilirubinemia Acute tension headache Qualifiers: Intractability: intractable Qualified Code(s): G44.201 - Tension-type headache, unspecified, intractable Instructions: DI for Headache Activity Restrictions/Additional Instructions: I recommend he packs to the neck frequently for the next 2 days, until symptoms resolve. Tramadol every 6 hours as needed for headache. Robaxin every 6 hours as long as the neck pain continues. Follow-up with her aircraft engine dismantler for ongoing liver issues as planned. Prescriptions: New tramadol 50 mg tablet 50 mg PO Q6H PRN (Reason: pain) Qty: 20 RF: 0 methocarbamol 750 mg tablet 750 mg PO Q6H PRN (Reason: spasm) Qty: 20 RF: 0 No Action nadolol 20 mg tablet 20 mg PO DAILY RF: 0 mirtazapine 15 mg tablet 15 mg PO BEDTIME Qty: 30 RF: 1 trazodone 50 mg tablet 25 - 50 mg PO BEDTIME PRN (Reason: Insomnia) RF: 0 diphenhydramine HCl 25 mg Tablet 25 mg PO PRN PRN (Reason: Allergy Symptoms) RF: 0 ondansetron 4 mg tablet,disintegrating 4 mg translingual Q6H PRN (Reason: Nausea) RF: 0 fluticasone propionate [Flonase Allergy Relief] 50 mcg/actuation [place],Suspension 1 spray INTRANASAL BID PRN (Reason: Congestion) RF: 0 lactulose 10 gram/15 mL solution 15 ml PO BID RF: 0 Referrals: Astrid Simmons MD [Primary Care Provider] -
[2019-04-19 16:46] VITALS: BP 137/80; PULSE 95; RESP 18; O2SAT 99
[2019-04-19] MEDS: ONDANSETRON 4 MG/2 ML INJ IV ×2 (16:48→20:46)
[2019-04-19] MEDS: SODIUM CHLORIDE 0.9% 1,000 ML 1000 ML IV (16:48)
[2019-04-19] MEDS: KETOROLAC 60 MG/2 ML VIAL 30 MG IV (17:05)
[2019-04-19] MEDS: diazePAM 5 MG TABLET PO (17:05)
[2019-04-19 17:14] LABS: Add Manual Diff / Slide Review NO; Basophils Absolute Auto 0 /uL (0-100); Basophils Percent Auto 0.5 % (0-2); Eosinophils Absolute Auto 400 /uL (0-450); Eosinophils Percent Auto 9.1 % (2-4); Hematocrit 39.2 % (41-53); Hemoglobin 13.5 g/dL (13.5-17.5); Lymphocytes Absolute Auto 900 /uL (1100-4500); Lymphocytes Percent Auto 19.7 % (25-40); Mean Corpuscular HGB Conc 34.4 % (30-36); Mean Corpuscular Hemoglobin 32.9 PG (26-34); Mean Corpuscular Volume 95.6 fL (80-100); Monocytes Absolute Auto 600 /uL (0-900); Monocytes Percent Auto 14.5 % (3-14); Neutrophils Absolute Auto 2500 /uL (1500-7000); Neutrophils Percent Auto 56.2 % (50-75); Platelet Count 61 X10^3/uL (150-400); Red Cell Distribution Width 16.6 % (11.6-14.8); White Blood Cell Count 4.5 X10^3/uL (4.5-11.0)
[2019-04-19 17:16] LABS: INR 1.3 (0.9-1.3); Prothrombin Time 15.2 SECONDS (10.1-12.7)
[2019-04-19 17:19] LABS: PTT Partial Thromboplastin Tim 39 SECONDS (26.4-36.2)
[2019-04-19 17:20] LABS: Alanine Aminotransferase 47 IU/L (21-72); Albumin 3.6 g/dL (3.5-5.0); Albumin Globulin Ratio 0.9 (1.0-2.8); Alkaline Phosphatase 247 U/L (38-126); Aspartate Aminotransferase 121 IU/L (17-59); BUN Creatinine Ratio 11.7 (6-22); Blood Urea Nitrogen 7 mg/dL (9-20); Calcium 9.3 mg/dL (8.4-10.2); Carbon Dioxide 27 mmol/L (22-32); Chloride 101 mmol/L (98-107); Estimated Glomerular Filt Rate > 60.0 mL/min (>60); Globulin 3.9 g/dL (1.7-4.1); Glucose 86 mg/dL (70-100); HEMOLYSIS < 15 (0-50); Lipase 150 U/L (23-300); Potassium 4.7 mmol/L (3.4-5.1); Sodium 136 mmol/L (137-145); Total Protein 7.5 g/dL (6.3-8.2)
[2019-04-19 17:23] LABS: Bilirubin Total 7.4 mg/dL (0.2-1.3)
--- NOTE | 2019-04-19 18:07 | DI.US.S_ITS ---
PROCEDURE: US ABDOMEN LIMITED INDICATIONS: ELEVATED LFTS TECHNIQUE: Real-time scanning was performed of the abdominal and retroperitoneal organs, with image documentation. COMPARISON: None. FINDINGS: Liver: The liver measures 15.0 cm in length and demonstrates increased echogenicity. Gallbladder: There is a 1.8 cm stone within the cystic duct. The gallbladder wall measures up to 3.3 mm in diameter. No pericholecystic fluid. There is a mild sonographic Kenny's sign. Biliary ducts: Intrahepatic bile ducts are non-dilated. Extrahepatic bile duct caliber measures 3.7 mm. Normal is 6-7 mm or less in diameter, or 10 mm or less post-cholecystectomy. Pancreas: The pancreas was not visualized. Miscellaneous: No free abdominal fluid. IMPRESSION: 1. Cholelithiasis with the gallbladder wall measuring the upper limits of normal for thickness. No pericholecystic fluid. Mild sonographic Kenny's sign. These findings are equivocal for acute cholecystitis. Early acute cholecystitis cannot be excluded. Dictated by: Aixa Gambino M.D. on 04/19/2019 at 19:27 Approved by: Aixa Gambino M.D. on 04/19/2019 at 19:28
[2019-04-19 18:17] VITALS: BP 147/100; PULSE 82; RESP 18; O2SAT 98
[2019-04-19 19:15] VITALS: BP 138/79; PULSE 90; RESP 18; TEMP 36.9; O2SAT 98
[2019-04-19 20:45] VITALS: BP 159/90; PULSE 78; RESP 18; O2SAT 98
[2019-04-19] MEDS: FAMOTIDINE 20 MG/50 ML PIGGYBACK 200 MG IV (20:46)
[2019-04-19] MEDS: MORPHINE 2 MG/ML INJ IV (21:12)
[2019-04-19] MEDS: TRAMADOL 50 MG PREPACK 1 BOTTLE MISC (21:12)
== END 2019-04-19 21:32 | disposition home or self-care (01) ==
PROVIDERS: Emergency Medicine; Emergency Provider Emergency Medicine; Family Provider Nurse Practitioner Family; PCP Hospitalist
DX: E80.6 Other disorders of bilirubin metabolism (principal); G44.201 Tension-type headache, unspecified, intractable; K80.20 Calculus of gallbladder without cholecystitis without obstruction; R10.9 Unspecified abdominal pain
CPT/HCPCS: 36415; 70450; 76705; 80053; 83690; 85025; 85610; 85730; 93005; 96361; 96365; 96375; 96376; 99283; 99285; J1885; J2270; J2405

== ENCOUNTER → 2019-04-20 11:36 | Outpatient (CLI) | payer SELFPAY ==
[2019-04-20 12:20] LABS: Add Manual Diff / Slide Review NO; Basophils Absolute Auto 0 /uL (0-100); Basophils Percent Auto 1.1 % (0-2); Eosinophils Absolute Auto 400 /uL (0-450); Eosinophils Percent Auto 12.7 % (2-4); Hematocrit 37.1 % (41-53); Hemoglobin 12.8 g/dL (13.5-17.5); Lymphocytes Absolute Auto 600 /uL (1100-4500); Lymphocytes Percent Auto 16.9 % (25-40); Mean Corpuscular HGB Conc 34.6 % (30-36); Mean Corpuscular Hemoglobin 33.2 PG (26-34); Mean Corpuscular Volume 96.1 fL (80-100); Monocytes Absolute Auto 600 /uL (0-900); Monocytes Percent Auto 15.9 % (3-14); Neutrophils Absolute Auto 1900 /uL (1500-7000); Neutrophils Percent Auto 53.4 % (50-75); Platelet Count 54 X10^3/uL (150-400); Red Blood Cell Count 3.86 X10^6/uL (4.5-5.9); Red Cell Distribution Width 16.8 % (11.6-14.8); White Blood Cell Count 3.5 X10^3/uL (4.5-11.0)
[2019-04-20 12:38] LABS: Alanine Aminotransferase 42 IU/L (<50); Albumin 3.5 g/dL (3.5-5.0); Albumin Globulin Ratio 0.9 (1.0-2.8); Alkaline Phosphatase 205 U/L (38-126); Aspartate Aminotransferase 105 IU/L (17-59); BUN Creatinine Ratio 18.6 (6-22); Bilirubin Conjugated 0.7 md/dL (0.0-0.3); Bilirubin Total 6.3 mg/dL (0.2-1.3); Bilirubin Unconjugated 3.9 mg/dL (0.0-1.1); Blood Urea Nitrogen 13 mg/dL (9-20); Calcium 9.4 mg/dL (8.4-10.2); Carbon Dioxide 28 mmol/L (22-32); Chloride 101 mmol/L (98-107); Estimated Glomerular Filt Rate > 60.0 mL/min (>60); Globulin 3.9 g/dL (1.7-4.1); Glucose 95 mg/dL (70-100); HEMOLYSIS < 15 (0-50); Potassium 4.6 mmol/L (3.4-5.1); Sodium 136 mmol/L (137-145); Total Protein 7.4 g/dL (6.3-8.2)
== END ==
PROVIDERS: PCP Hospitalist; Visit Provider Internal Medicine
DX: E80.6 Other disorders of bilirubin metabolism (principal); F10.20 Alcohol dependence, uncomplicated; K74.60 Unspecified cirrhosis of liver; K92.2 Gastrointestinal hemorrhage, unspecified
CPT/HCPCS: 36415; 80048; 80076; 85025

== ENCOUNTER → 2019-04-23 07:59 | Outpatient (CLI) | payer SELFPAY ==
[2019-04-23 09:01] LABS: Add Manual Diff / Slide Review NO; Basophils Absolute Auto 0 /uL (0-100); Basophils Percent Auto 0.4 % (0-2); Eosinophils Absolute Auto 300 /uL (0-450); Hematocrit 39.4 % (41-53); Hemoglobin 13.4 g/dL (13.5-17.5); Lymphocytes Absolute Auto 700 /uL (1100-4500); Lymphocytes Percent Auto 14.2 % (25-40); Mean Corpuscular HGB Conc 34.1 % (30-36); Mean Corpuscular Hemoglobin 33.3 PG (26-34); Mean Corpuscular Volume 97.6 fL (80-100); Monocytes Absolute Auto 400 /uL (0-900); Monocytes Percent Auto 7.9 % (3-14); Neutrophils Absolute Auto 3300 /uL (1500-7000); Neutrophils Percent Auto 70.5 % (50-75); Platelet Count 61 X10^3/uL (150-400); Red Blood Cell Count 4.04 X10^6/uL (4.5-5.9); White Blood Cell Count 4.6 X10^3/uL (4.5-11.0)
[2019-04-23 09:19] LABS: Alanine Aminotransferase 42 IU/L (<50); Albumin 3.6 g/dL (3.5-5.0); Albumin Globulin Ratio 0.9 (1.0-2.8); Alkaline Phosphatase 433 U/L (38-126); Aspartate Aminotransferase 87 IU/L (17-59); Bilirubin Total 2.5 mg/dL (0.2-1.3); Bilirubin Unconjugated 1.6 mg/dL (0.0-1.1); Globulin 3.9 g/dL (1.7-4.1); HEMOLYSIS < 15 (0-50); Total Protein 7.5 g/dL (6.3-8.2)
== END ==
PROVIDERS: PCP Hospitalist; Visit Provider Internal Medicine
DX: E80.6 Other disorders of bilirubin metabolism (principal); F10.20 Alcohol dependence, uncomplicated; K74.60 Unspecified cirrhosis of liver; K92.2 Gastrointestinal hemorrhage, unspecified
CPT/HCPCS: 36415; 80076; 85025

== ENCOUNTER 2020-04-19 17:34 | Emergency (ER) | payer SELFPAY ==
[2020-04-19 17:47] VITALS: BP 158/97; PULSE 97; RESP 18; TEMP 36.9; O2SAT 98; BMI 29.8
--- NOTE | 2020-04-19 18:22 | ED_ITS ---
HPI - Fall General Chief Complaint: Fall Stated Complaint: Lt side pain post fall Time Seen by Provider: 04/19/20 18:06 Source: patient Mode of arrival: Ambulatory Limitations: no limitations History of Present Illness HPI Narrative: Patient is a 49-year-old otherwise healthy male here for evaluation of headache that he has had on the left side of his head since sustaining a fall 2 weeks ago. Patient states that he was walking his dog 2 weeks ago when he tripped over the dog falling and landing on the left side of his body. He is unsure if he lost any consciousness. Since that time he has had a headache, pain on the left side of his body, he feels that he has broken his nose. Had black eyes but this seems to have resolved. Also describing some blurry vision and nausea and balance issues. Has been taking Tylenol for his symptoms without any improvement. Related Data Home Medications Medication Instructions Recorded Confirmed diphenhydramine HCl 25 mg PO PRN PRN 04/19/19 05/23/19 fluticasone propionate [Flonase 1 spray INTRANASAL BID PRN 04/19/19 05/23/19 Allergy Relief] trazodone 25 - 50 mg PO BEDTIME PRN 04/19/19 05/23/19 Previous Rx's Medication Instructions Recorded mirtazapine 15 mg tablet 15 mg PO BEDTIME #30 tab 04/10/19 methocarbamol 750 mg PO Q6H PRN #20 tab 04/19/19 tramadol 50 mg tablet 50 mg PO Q6H PRN #30 tab 05/23/19 pantoprazole 40 mg tablet,delayed 40 mg PO BID #60 tab 06/06/19 release ondansetron 4 mg disintegrating 4 mg TRANSLINGUAL Q6H PRN #30 tab 06/07/19 tablet nadolol 20 mg tablet 20 mg PO DAILY #90 tab 04/03/20 Allergies Allergy/AdvReac Type Severity Reaction Status Date / Time ciprofloxacin Allergy Rash Verified 04/19/20 17:47 Sulfa (Sulfonamide Allergy Rash Verified 04/19/20 17:47 Antibiotics) Review of Systems Constitutional Constitutional: Denies fever(s), Denies frequent falls and Reports headache(s) Eyes Eyes: Reports blurry vision ENT Ears, Nose, Mouth, and Throat: Denies vertigo, Reports dizziness, Reports headache(s), Reports disequilibrium, Denies sinus pain and Denies sore throat Cardiovascular Cardiovascular: Denies chest pain and Denies dyspnea Respiratory Respiratory: Denies dyspnea Gastrointestinal Gastrointestinal: Denies abdominal pain, Denies nausea and Denies vomiting Genitourinary Genitourinary: Denies dysuria Genitourinary: Denies dysuria Musculoskeletal Musculoskeletal: Denies arthralgias, Denies myalgias and Denies tingling Integumentary/Breasts Comments: Bruising on his left elbow and left knee and around his nose Neurologic Neurologic: Denies confusion, Denies vertigo, Reports dizziness, Denies frequent falls, Reports headache(s), Denies tingling and Reports disequilibrium Psychiatric Psychiatric: Denies confusion Hematologic/Lymphatic Hematologic/Lymphatic: Denies easy bleeding and Denies easy bruising Allergic/Immunologic Allergic/Immunologic: Denies urticaria Patient History Medical History Allergies (Acute ~1981) Cholelithiasis (Acute) Cirrhosis (Acute) Constipation (Acute) Hypertension (Acute) Surgical History Derangement of left patella (Acute ~2008) Family History Father Hypertension Grandfather Alcoholic Social History marital status: household members: spouse pets and animals: Yes education level: high school occupational status: unemployed 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 priscilla/faith: Pentecostalism leisure activities: other other: Boating/Fishing seatbelt use: always helmet use: Yes water heater temp set < 120 deg: Yes working smoke detector in home: Yes fire extinguisher in home: Yes carbon monox detector in home: Yes firearms in home: No do you feel safe at home: Yes Smoking Status: Never smoker alcohol intake: current substance use type: does not use during the past year weight has: other well-balanced diet: about half the time daily servings fruits/ve-4 caffeine: Yes (Rare/Never drink soda) eating out: rarely or never Type(s) of exercise: walking frequency: 1-2 times per week duration: 30-45 minutes/day additional social history: Recently quit taking alcohol, Light smoker in HS, Stationary bike. Smoking Status: Never smoker alcohol intake frequency: 0-2 drinks per day Substance Use Type: does not use Exam Initial Vital Signs Initial Vital Signs: Vital Signs Temperature 98.4 F 04/19/20 17:47 Pulse Rate 97 H 04/19/20 17:47 Respiratory Rate 18 04/19/20 17:47 Blood Pressure 158/97 H 04/19/20 17:47 Pulse Oximetry 98 04/19/20 17:47 Const General: cooperative and comfortable Limitations: mental status not altered HENMT Head: No Swain's sign and No contusion Ears: hearing grossly normal bilaterally Nose: septum normal, No nasal discharge and other (Bruising over bridge of nose) Mouth: oral mucosae normal Eyes Pupils: PERRL EOM: EOM intact bilaterally Resp Effort & Inspection: normal respiratory effort Cardio Rate: regular rate Skin Other: Patient with bruising over the bridge of his nose and bruising over his left elbow Neuro General: patient alert, patient awake and patient oriented x3 Cranial Nerves: CN's II-XI intact bilaterally Speech: speech normal Gait: normal gait Extrem General: capillary refill normal Psych Appearance: grossly normal and well kempt Scores GCS Mosier coma scale eye opening: Spontaneous Mosier coma scale verbal response: Orientated Mosier coma scale motor response: Obey commands Eulogio coma scale total score: 15 Course Orders Ordered: ED Orders 04/19/20 18:23 CT head/brain wo con Stat Vital Signs Vital signs: Vital Signs - 8 hr 04/19/20 17:47 04/19/20 19:41 Temperature 98.4 F Pulse Rate 97 H 92 H Respiratory Rate 18 16 Blood Pressure 158/97 H 147/93 H Pulse Oximetry 98 97 MDM - Fall Imaging Data CT scan - head: Radiologist's Impression: [address] [address] [address] Scan Report Signed Patient: Balta Jarrett LMR#: [id number] : 1970Acct:[id number] Age/Sex: 49 / MDate of Service: 04/19/20 Loc: ED Accession Number: [id number] Procedure: CT head/brain wo con Ordering Provider: Federico Lock D.O. PROCEDURE: CT HEAD/BRAIN WO CON INDICATIONS: fall hit left side with dizziness TECHNIQUE: Noncontrast 4.5 mm thick angled axial sections acquired from the foramen magnum to the vertex, with coronal and sagittal reformats. For radiation dose reduction, the following was used: automated exposure control, adjustment of mA and/or kV according to patient size. COMPARISON: [facility], CT, CT HEAD/BRAIN WO CON, 04/19/2019, 16:01. FINDINGS: Image quality: Excellent. CSF spaces: Basal cisterns are patent. No extra-axial fluid collections. Ventricles are normal in size and shape. Brain: No midline shift. No intracranial masses or hemorrhage. Peoples-white matter interface is normal. Skull and face: Calvarium and visualized facial bones are intact, without suspicious lesions. Sinuses: Visualized sinuses and mastoids are clear. IMPRESSION: No acute intracranial disease process. Dictated by: Mague Mathis MD, PhD on 04/19/2020 at 18:52 Approved by: Mague Mathis MD, PhD on 04/19/2020 at 18:54 [facility] Narrative Medical decision making narrative: Patient's fall was mechanical night was 2 weeks ago. Has been ambulatory since that is full range of motion of joints in his upper extremities. He has no neck pain. He has been having post concussive like symptoms since then. Has been taking Tylenol with only minimal effect. His head CT was unremarkable. Had a discussion with him regarding post consists of syndrome. Also talked about this with his over the phone after he requested that I do this. It was revealed that he has a history of cirrhosis and has not had his levels checked in quite some time. Initially he was okay with a strong blood but then stated that he would rather follow up with his primary provider. We discussed postconcussive syndrome. We did discuss that the potential outcomes and the length of time that he may have symptoms. We discussed avoiding things that make his symptoms worse. We discussed return precautions. I feel that we can hold on further workup for now. He expressed understanding and agreement. Discharge Plan Departure Patient Disposition: Home Clinical Impression: Postconcussive syndrome Discharge Date/Time: 04/19/20 19:41 Instructions: DI for Postconcussion Syndrome Activity Restrictions/Additional Instructions: Recommend that you contact your primary provider to check your liver function tests and also discuss further workup of the symptoms that you are having after your head injury. Return to the emergency department for any new or worsening symptoms. Prescriptions: No Action pantoprazole [Protonix] 40 mg tablet,delayed release (DR/EC) 40 mg PO BID Qty: 60 RF: 3 ondansetron 4 mg tablet,disintegrating 4 mg translingual Q6H PRN (Reason: Nausea) Qty: 30 RF: 2 nadolol 20 mg tablet 20 mg PO DAILY Qty: 90 RF: 0 mirtazapine 15 mg tablet 15 mg PO BEDTIME Qty: 30 RF: 1 tramadol 50 mg tablet 50 mg PO Q6H PRN (Reason: pain) Qty: 30 RF: 0 trazodone 50 mg tablet 25 - 50 mg PO BEDTIME PRN (Reason: Insomnia) RF: 0 diphenhydramine HCl 25 mg Tablet 25 mg PO PRN PRN (Reason: Allergy Symptoms) RF: 0 fluticasone propionate [Flonase Allergy Relief] 50 mcg/actuation [employer],Suspension 1 spray INTRANASAL BID PRN (Reason: Congestion) RF: 0 methocarbamol 750 mg tablet 750 mg PO Q6H PRN (Reason: spasm) Qty: 20 RF: 0 Referrals: Dago Malloy DO [Primary Care Provider] -
[2020-04-19 19:41] VITALS: BP 147/93; PULSE 92; RESP 16; O2SAT 97
== END 2020-04-19 19:41 | disposition home or self-care (01) ==
PROVIDERS: Emergency Provider Emergency Medicine; PCP Family Medicine
DX: F07.81 Postconcussional syndrome (principal); R51.9 Headache, unspecified
CPT/HCPCS: 70450; 99281; 99284

== ENCOUNTER → 2020-12-30 12:06 | Outpatient (CLI) | payer SELFPAY ==
[2020-12-30 13:08] LABS: Add Manual Diff / Slide Review NO; Basophils Absolute Auto 100 /uL (0-100); Basophils Percent Auto 2.3 % (0-2); Eosinophils Absolute Auto 300 /uL (0-450); Eosinophils Percent Auto 8.6 % (2-4); Hematocrit 43.4 % (41-53); Hemoglobin 14.7 g/dL (13.5-17.5); Lymphocytes Absolute Auto 500 /uL (1100-4500); Lymphocytes Percent Auto 17.3 % (25-40); Mean Corpuscular HGB Conc 33.8 % (30-36); Mean Corpuscular Hemoglobin 34.8 PG (26-34); Mean Corpuscular Volume 102.9 fL (80-100); Monocytes Absolute Auto 400 /uL (0-900); Monocytes Percent Auto 11.6 % (3-14); Neutrophils Absolute Auto 1900 /uL (1500-7000); Neutrophils Percent Auto 60.2 % (50-75); Platelet Count 63 X10^3/uL (150-400); Red Blood Cell Count 4.22 X10^6/uL (4.5-5.9); Red Cell Distribution Width 17.9 % (11.6-14.8); White Blood Cell Count 3.2 X10^3/uL (4.5-11.0)
[2020-12-30 13:21] LABS: Alanine Aminotransferase 51 IU/L (<50); Albumin 3.5 g/dL (3.5-5.0); Albumin Globulin Ratio 0.8 (1.0-2.8); Alkaline Phosphatase 428 U/L (38-126); Aspartate Aminotransferase 126 IU/L (17-59); BUN Creatinine Ratio 14.6 (6-22); Bilirubin Total 5.8 mg/dL (0.2-1.3); Blood Urea Nitrogen 7 mg/dL (9-20); Carbon Dioxide 29 mmol/L (22-32); Chloride 108 mmol/L (98-107); Estimated Glomerular Filt Rate > 60.0 mL/min (>60); Globulin 4.5 g/dL (1.7-4.1); Glucose 95 mg/dL (70-100); HEMOLYSIS 22 (0-50); Potassium 3.9 mmol/L (3.4-5.1); Sodium 142 mmol/L (137-145)
[2020-12-30 14:59] LABS: C-Reactive Protein Quant 0.7 mg/dL (<1.0)
[2020-12-30 15:04] LABS: Erythrocyte Sedimentation Rate 40 MM/HR (0-15)
[2021-01-01 15:12] LABS: ANA Screen, IFA Negative (.)
== END ==
LOC: LAB 12:08
PROVIDERS: PCP Family Medicine; Referring Provider Dermatology; Visit Provider Dermatology
DX: R23.3 Spontaneous ecchymoses (principal); R20.9 Unspecified disturbances of skin sensation
CPT/HCPCS: 36415; 80053; 85025; 85651; 86038; 86140

== ENCOUNTER 2021-01-29 13:48 | Emergency (ER) | payer SELFPAY ==
[2021-01-29] VITALS (13 sets, daily range): BP systolic 130–141; BP diastolic 76–86; PULSE 76–81; RESP 14–18; TEMP 36.9; O2SAT 96–100; BMI 27.4
--- NOTE | 2021-01-29 14:02 | DI.US.S_ITS ---
PROCEDURE: US ABDOMEN LIMITED INDICATIONS: RULE OUT GALLBLADDER PATHOLOGY TECHNIQUE: Real-time focused scanning was performed of the abdomen, with image documentation. COMPARISON: [facility], [place], US ABDOMEN COMPLETE, 02/04/2019, 10:38. [facility], [place], US ABDOMEN LIMITED, 04/19/2019, 18:55. FINDINGS: There ink stones and sludge can be seen within the gallbladder, which appear non mobile. The gallbladder wall is thickened to 5 mm. No specific pericholecystic fluid is seen. The sonographic Kenny sign is negative. The common bile duct is mildly dilated to 8 mm. The liver demonstrates normal size, it demonstrates a heterogeneous, coarse appearance. The pancreas is not well seen. A trace of free fluid can be seen within the right upper quadrant. IMPRESSION: Gallstones and sludge can be seen, with mild gallbladder wall thickening. The gallbladder wall thickening is nonspecific in this patient with a small amount of right upper quadrant ascites. No additional sonographic signs of cholecystitis are seen. Please correlate with physical examination findings, patient presentation, and laboratory values. Mild biliary ductal dilatation can be seen. MRCP Dictated by: Michoacano Mcintosh M.D. on 01/29/2021 at 14:12 Approved by: Michoacano Mcintosh M.D. on 01/29/2021 at 14:16
--- NOTE | 2021-01-29 14:12 | ED.NEUROSD ---
HPI - Neuro Symptoms/Deficit General Chief Complaint: Neuro Symptoms/Deficit Stated Complaint: something wrong w/right shoulder and back Time Seen by Provider: 01/29/21 13:52 Source: patient and family Mode of arrival: Ambulatory Limitations: no limitations History of Present Illness HPI Narrative: Patient is a 50-year-old male. History of alcoholism. Was sent to the emergency department today for evaluation because of jaundice, rash on his shoulder, a rash on his back and to be admitted to the hospital. He was sent by his primary doctor. Patient is a known history of alcoholism, esophageal varices, he is on lactulose, has had elevated ammonia levels in the past. Patient states he has not drank for several days/weeks. Patient's questioned this. He is not having abdominal tenderness. No nausea vomiting, no shaking, no other signs of alcohol withdrawal. He has been taking his medications as directed. He is not vomiting any blood. No change in bowel habits. No headache. A couple days ago he started having bruising in his right flank. This has worsened over the past couple days. He does have a rash on his right shoulder. He has seen Dermatology. He has been referred to another dermatologic specialist. He is not on any medications for this. On Anticoagulants: No Related Data Previous Rx's Medication Instructions Recorded ondansetron 4 mg disintegrating 4 mg TRANSLINGUAL Q6H PRN #30 tab 06/07/19 tablet lactulose 10 gram/15 mL oral 15 ml PO BID 30 Days #900 ml 05/21/20 solution trazodone 50 mg tablet 25 - 50 mg PO BEDTIME PRN #30 tab 07/03/20 pantoprazole 40 mg tablet,delayed 40 mg PO BID #60 tab 09/18/20 release (Protonix) bupropion HCl 75 mg tablet See Rx Instructions .ROUTE 11/19/20 .COMPLEX #60 tab nadolol 20 mg tablet 20 mg PO DAILY #90 tab 12/19/20 tramadol 100 mg tablet 100 mg PO TID PRN #90 tab 01/09/21 Allergies Allergy/AdvReac Type Severity Reaction Status Date / Time ciprofloxacin Allergy Rash Verified 01/29/21 14:05 Sulfa (Sulfonamide Allergy Rash Verified 01/29/21 14:05 Antibiotics) Review of Systems Constitutional Comments: No fevers Eyes Comments: No vision changes ENT Comments: No sore throat Cardiovascular Comments: No chest pain Respiratory Comments: No shortness of breath, no cough Gastrointestinal Comments: No abdominal pain, no change in bowel habits Genitourinary Comments: No urinary symptoms Musculoskeletal Comments: No joint pain Integumentary/Breasts Skin/Breast: Reports as per HPI Neurologic Neurologic: Reports system reviewed and no additional complaints, except as documented Psychiatric Psychiatric: Reports system reviewed and no additional complaints, except as documented Endocrine Endocrine: Reports system reviewed and no additional complaints, except as documented Hematologic/Lymphatic On Anticoagulants: No Allergic/Immunologic Allergic/Immunologic: Reports system reviewed and no additional complaints, except as documented Patient History Medical History Acute upper gastrointestinal bleeding Alcoholic cirrhosis of liver Allergies (~1981) Anxiety Cholelithiasis Cirrhosis Constipation Elevated alkaline phosphatase level Esophageal varices Hallucinations, visual Hyperlipidemia, mixed Hypertension Insomnia Rash and nonspecific skin eruption Spontaneous ecchymosis Thrombocytopenia Transaminitis Uncontrolled daytime somnolence Surgical History Derangement of left patella (~2008) Family History Father Hypertension Grandfather Alcoholic Social History marital status: household members: spouse pets and animals: Yes education level: high school occupational status: unemployed 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 priscilla/anabaptist: Adventism leisure activities: other other: Boating/Fishing seatbelt use: always helmet use: Yes water heater temp set < 120 deg: Yes working smoke detector in home: Yes fire extinguisher in home: Yes carbon monox detector in home: Yes firearms in home: No do you feel safe at home: Yes Smoking Status: Current every day smoker alcohol intake: current substance use type: does not use during the past year weight has: other well-balanced diet: about half the time daily servings fruits/ve-4 caffeine: Yes (Rare/Never drink soda) eating out: rarely or never Type(s) of exercise: walking frequency: 1-2 times per week duration: 30-45 minutes/day additional social history: Recently quit taking alcohol, Light smoker in , Stationary bike. Smoking Status: Current every day smoker alcohol intake frequency: 0-2 drinks per day Substance Use Type: does not use Exam Initial Vital Signs Initial Vital Signs: Vital Signs Temperature 98.5 F 01/29/21 13:55 Pulse Rate 76 01/29/21 13:55 Respiratory Rate 14 01/29/21 13:55 Blood Pressure 141/86 H 01/29/21 13:55 Pulse Oximetry 99 01/29/21 13:55 Const General: cooperative and No ill appearing HENMT Head: normal to inspection Eyes Other: Scleral jaundice Chest Chest: normal inspection of the chest Resp Effort & Inspection: normal respiratory effort Auscultation: clear to auscultation bilaterally Cardio Rate: regular rate Rhythm: regular rhythm GI Inspection: normal to inspection Back/Spine/Pelvis Back: normal to inspection Skin Other: Patient has jaundiced skin, he has a large area of ecchymosis along the right flank, he also has a palm size area rash to the anterior portion of his right shoulder. The rash does have what appears to be crusting, small vesicles. No surrounding erythema Neuro General: patient alert, patient awake, patient oriented x3 and moves all extremities Extrem General: normal to inspection Psych Appearance: grossly normal and well kempt Course Orders Ordered: ED Orders 01/29/21 13:32 Complete Blood Count AUTO DIFF Stat Gamma Glutamyl Transpeptidase Stat Lipase Stat Partial Thromboplastin Time Stat Prothrombin Time INR Stat 01/29/21 13:55 Ictotest Urine Stat Urinalysis and Microscopic Stat 01/29/21 14:02 US abdomen limited Stat 01/29/21 14:05 Ammonia (NH3) Stat 01/29/21 14:37 CT abdomen pelvis w con Stat 01/29/21 15:18 Lactate (Lactic Acid) Stat Vital Signs Vital signs: Vital Signs - 8 hr 01/29/21 13:55 01/29/21 13:56 01/29/21 14:00 Temperature 98.5 F Pulse Rate 76 76 78 Respiratory Rate 14 Blood Pressure 141/86 H 141/86 H 135/86 Pulse Oximetry 99 99 99 01/29/21 14:30 01/29/21 14:55 01/29/21 15:00 Temperature Pulse Rate 79 80 79 Respiratory Rate 18 Blood Pressure 136/83 136/83 Pulse Oximetry 100 98 97 01/29/21 15:34 01/29/21 16:00 01/29/21 16:30 Temperature Pulse Rate 81 76 77 Respiratory Rate Blood Pressure 134/77 Pulse Oximetry 98 96 97 01/29/21 16:31 01/29/21 17:00 01/29/21 17:30 Temperature Pulse Rate 78 78 78 Respiratory Rate Blood Pressure 132/81 133/76 130/76 Pulse Oximetry 98 97 97 01/29/21 18:00 Temperature Pulse Rate 77 Respiratory Rate Blood Pressure 140/79 Pulse Oximetry 97 MDM - Neuro Symptoms/Deficit Medical Records Attestation: I reviewed the patient's medical records. Lab Data Attestation: I reviewed the patient's lab results. Result diagrams: 01/29/21 13:32 Labs: Lab Results 01/29/21 01/29/21 01/29/21 Range/Units 13:32 13:32 13:32 WBC 5.3 (4.5-11.0) X10^3/uL RBC 3.79 L (4.5-5.9) X10^6/uL Hgb 13.5 (13.5-17.5) g/dL Hct 39.6 L (41-53) % MCV 104.4 H (80-100) fL MCH 35.7 H (26-34) PG MCHC 34.2 (30-36) % RDW 18.4 H (11.6-14.8) % Plt Count 51 L (150-400) X10^3/uL Neut % (Auto) 73.0 (50-75) % Lymph % (Auto) 6.7 L (25-40) % [place] % (Auto) 16.1 H (3-14) % Eos % (Auto) 3.5 (2-4) % Baso % (Auto) 0.7 (0-2) % Neut # (Auto) 3900 (8732-6085) /uL Lymph # (Auto) 400 L (1572-1892) /uL [place] # (Auto) 900 (0-900) /uL Eos # (Auto) 200 (0-450) /uL Baso # (Auto) 0 (0-100) /uL PT 17.4 H (10.1-12.7) SECONDS INR 1.6 H (0.9-1.3) APTT 34 (26.4-36.2) SECONDS Lactate (0.7-2.1) mmol/L GGT 209 H (15-73) U/L Ammonia (9-30) umol/L Lipase 393 H (23-300) U/L Urine Color Urine Appearance Urine pH (4.5-8.0) Ur Specific [place] (1.000-1.035) Urine Protein (Negative) Urine Glucose (UA) (Negative) g/dL Urine Ketones (NEGATIVE) Urine Occult Blood (Negative) Urine Nitrate (Negative) Urine Bilirubin (NEGATIVE) Ur Bilirubin Confirm (Negative) Urine Urobilinogen (0.2) E.U./dL Ur Leukocyte Esterase (NEGATIVE) Urine RBC (0-5/HPF) Urine WBC (0-5/HPF) Ur Squamous Epith Cells (0-5/HPF) Urine Bacteria (None) Ur Culture Indicated? Micro UA Comment 01/29/21 01/29/21 01/29/21 Range/Units 13:55 14:05 15:18 WBC (4.5-11.0) X10^3/uL RBC (4.5-5.9) X10^6/uL Hgb (13.5-17.5) g/dL Hct (41-53) % MCV (80-100) fL MCH (26-34) PG MCHC (30-36) % RDW (11.6-14.8) % Plt Count (150-400) X10^3/uL Neut % (Auto) (50-75) % Lymph % (Auto) (25-40) % [place] % (Auto) (3-14) % Eos % (Auto) (2-4) % Baso % (Auto) (0-2) % Neut # (Auto) (8408-4686) /uL Lymph # (Auto) (6375-4361) /uL [place] # (Auto) (0-900) /uL Eos # (Auto) (0-450) /uL Baso # (Auto) (0-100) /uL PT (10.1-12.7) SECONDS INR (0.9-1.3) APTT (26.4-36.2) SECONDS Lactate 1.6 (0.7-2.1) mmol/L GGT (15-73) U/L Ammonia 60 H (9-30) umol/L Lipase (23-300) U/L Urine Color Brown Urine Appearance Clear Urine pH 6.0 (4.5-8.0) Ur Specific [place] 1.015 (1.000-1.035) Urine Protein Negative (Negative) Urine Glucose (UA) Negative (Negative) g/dL Urine Ketones Negative (NEGATIVE) Urine Occult Blood Negative (Negative) Urine Nitrate Negative (Negative) Urine Bilirubin 3+ H (NEGATIVE) Ur Bilirubin Confirm Positive H (Negative) Urine Urobilinogen 4.0 H (0.2) E.U./dL Ur Leukocyte Esterase Negative (NEGATIVE) Urine RBC None seen (0-5/HPF) Urine WBC 1-5/hpf (0-5/HPF) Ur Squamous Epith Cells 0-1 /hpf (0-5/HPF) Urine Bacteria Few (2-10) H (None) Ur Culture Indicated? Cult not indicated Micro UA Comment Imaging Data US - abdomen: Radiologist's Impression: [address] [id number] ReportSigned Patient: Balta Jarrett LMR#: [id number]: 1970Acct:[id number]/Sex: 50 / MDate of Service: 01/29/21Loc: EDAccession Number: [id number] Procedure: US abdomen limited Ordering Provider: Federico Lock D.O. PROCEDURE: US ABDOMEN LIMITED INDICATIONS: RULE OUT GALLBLADDER PATHOLOGY TECHNIQUE: Real-time focused scanning was performed of the abdomen, with image documentation. COMPARISON: [facility], US, US ABDOMEN COMPLETE, 02/04/2019, 10:38. [facility], US, US ABDOMEN LIMITED, 04/19/2019, 18:55. FINDINGS: There ink stones and sludge can be seen within the gallbladder, which appear non mobile. The gallbladder wall is thickened to 5 mm. No specific pericholecystic fluid is seen. The sonographic Kenny sign is negative. The common bile duct is mildly dilated to 8 mm. The liver demonstrates normal size, it demonstrates a heterogeneous, coarse appearance. The pancreas is not well seen. A trace of free fluid can be seen within the right upper quadrant. IMPRESSION: Gallstones and sludge can be seen, with mild gallbladder wall thickening. The gallbladder wall thickening is nonspecific in this patient with a small amount of right upper quadrant ascites. No additional sonographic signs of cholecystitis are seen. Please correlate with physical examination findings, patient presentation, and laboratory values. Mild biliary ductal dilatation can be seen. MRCP Dictated by: Michoacano Mcintosh M.D. on 01/29/2021 at 14:12 Approved by: Michoacano Mcintosh M.D. on 01/29/2021 at 14:16 CT scan - abdomen/pelvis: Radiologist's Impression: [address] [id number] Scan ReportSigned Patient: Balta Jarrett LMR#: [id number]: 1970Acct:[id number]/Sex: 50 / MDate of Service: 01/29/21Loc: EDAccession Number: [id number] Procedure: CT abdomen pelvis w con Ordering Provider: Federico Lock D.O. PROCEDURE: CT ABDOMEN PELVIS W CON INDICATIONS: Jaundice, ascites, cirrhosis abdominal distension TECHNIQUE: After the administration of oral and IV contrast, axial sections were acquired from the lung bases to the pubic symphysis. Coronal and sagittal reformats were performed. For radiation dose reduction, the following was used: automated exposure control, adjustment of mA and/or kV according to patient size. COMPARISON: [facility], US, US ABDOMEN LIMITED, 01/29/2021, 14:17. [facility], CT, CT ABDOMEN PELVIS W CON, 03/27/2018, 21:42. FINDINGS: Image quality: Excellent. Lung bases: Unremarkable. Heart: No significant findings. ABDOMEN: Liver: Cirrhotic liver morphology. No obvious lesion on this single portal phase exam. Gallbladder: Prominent. Cholelithiasis. Increased conspicuity of the gallbladder wall. Suspect trace pericholecystic fluid. Biliary ducts: No dilatation seen. Pancreas: Unremarkable. Spleen: Within normal limits. Measures 10.8 cm. Small splenule. Adrenal Glands: No nodule. Kidneys and Ureters: No hydronephrosis. Tiny cortical hypodensities which are too small to further characterize. Stomach and Bowel: The stomach is not significantly distended. There is trace fluid adjacent to the stomach and the 3rd portion of the duodenum. Mildly prominent loops of small bowel. No transition point identified. Normal appendix. Peritoneum: No pneumoperitoneum. Mild ascites. Ventral Wall: No hernia. Abdominal Nodes: No retroperitoneal or mesenteric adenopathy by size criteria. Vessels: No abdominal aortic aneurysm. Suspect recannulization of the periumbilical vein. Paraesophageal varices. Upper abdominal varices. PELVIS: Pelvic Organs: Unremarkable. Bladder: Only partially distended. No stones. Pelvic Nodes: No enlarged lymph nodes. Miscellaneous: Suspect fat containing left inguinal hernia. Bones: Unremarkable. IMPRESSION: 1. Cirrhosis and portal hypertension. Mild ascites. Paraesophageal varices. -Consider follow-up HCC screening with multiphase liver CT or liver MRI. 2. Prominent gallbladder with increased conspicuity of the gallbladder wall and suspected trace pericholecystic fluid. Gallstones. These findings are nonspecific but could be seen in cholecystitis or in the setting of ascites. -HIDA scan could be considered for further evaluation. 3. Trace retroperitoneal fluid near the 3rd portion of the duodenum. This could be seen in duodenitis or pancreatitis. 4. Mildly dilated loops of small bowel. No discrete transition point to suggest obstruction. Dictated by: Giovanny France M.D. on 01/29/2021 at 15:44 Approved by: Giovanny France M.D. on 01/29/2021 at 15:58 MDM Narrative Medical decision making narrative: Patient is alert oriented x3. The labs that were ordered in the emergency department today are in addition to labs that were ordered by his primary care doctor in drawn this morning. Please refer to these labs were a complete picture of his clinical presentation. He is jaundiced. He has no abdominal discomfort. He does have a elevated ammonia but he is not altered. The CT scan of his abdomen does not show any signs of internal bleeding. The right flank ecchymoses could potentially be because of his thrombocytopenia were potentially a trauma however again there is no intra-abdominal issues with regard to this. Patient was concerned about the rash on his right shoulder. He has seen Dermatology about this and is scheduled to see another wire spinner. We will hold on any further workup or treatment for now. Does not appear to be cellulitis are patient does have cholelithiasis. There is no signs of cholecystitis based on his exam. He is afebrile. Does not have a leukocytosis. I did discuss the case with his primary doctor who requested that he be admitted to the hospital for further evaluation. I discussed the case with Dr. andres on-call for Internal Medicine who stated that there is no particular reason to admit him to the hospital unless he would need further workup of his gallbladder issues to include HIDA scan/MRCP. She asked that I did discuss the case with General surgery. I then discussed the case with Dr. Arias on-call for General surgery. She stated that given his hyperbilirubinemia HIDA scan would not be appropriate. She stated that he potentially does need MRCP however given his presentation today it is less likely that he does have acute cholecystitis. I agree with this based on his presentation. She stated that this could be done as a outpatient and if there was any abnormality that [facility] would not be the appropriate place for him to have his gallbladder removed given his other issues. Attempted to contact his primary doctor again however it is after office hours. I informed the patient and his of these discussions. Plan will be is to discharge him home. There is no need for platelet transfusion today. No indication for antibiotics. He was informed that he needs to continue to abstain from alcohol. He will contact his primary doctor tomorrow for follow-up. He was given strict return precautions. He expressed understanding agreement. Discharge Plan Departure Patient Disposition: Home Clinical Impression: Hyperbilirubinemia, Cholelithiasis, Thrombocytopenia, Jaundice, Alcoholic hepatitis, Discoloration of skin of flank resembling ecchymosis Instructions: Alcoholic Hepatitis (Alternative Therapy), DI for Jaundice Activity Restrictions/Additional Instructions: I did discuss the case today with our hospitalist and also our general surgeon. Both of these individuals feel like you do need further workup but that a can be performed as an outpatient and does not require admission today. I recommend that tomorrow you contact your primary doctor for follow-up to discuss further workup to include a MRCP and potential referral to see Gastroenterology. You do need to refrain from drinking alcohol as this will only make your symptoms worsen. Return to the emergency department for any new symptoms Prescriptions: No Action ondansetron 4 mg tablet,disintegrating 4 mg translingual Q6H PRN (Reason: Nausea) Qty: 30 RF: 2 lactulose 10 gram/15 mL solution 15 ml PO BID 30 Days Qty: 900 RF: 5 pantoprazole [Protonix] 40 mg tablet,delayed release (DR/EC) 40 mg PO BID Qty: 60 RF: 3 bupropion HCl 75 mg tablet See Rx Instructions .ROUTE .COMPLEX Qty: 60 RF: 0 tramadol 100 mg tablet 100 mg PO TID PRN (Reason: pain) Qty: 90 RF: 0 trazodone 50 mg tablet 25 - 50 mg PO BEDTIME PRN (Reason: Insomnia) Qty: 30 RF: 5 nadolol 20 mg tablet 20 mg PO DAILY Qty: 90 RF: 1 Referrals: Dago Malloy DO [Primary Care Provider] -
[2021-01-29 14:14] LABS: INR 1.6 (0.9-1.3); Prothrombin Time 17.4 SECONDS (10.1-12.7)
--- NOTE | 2021-01-29 14:14 | PC.NURSE ---
Patient brought in today by , referred by Dr Malloy for c/o back and shoulder pain by patient and reports of hallucinations by . Patient denies that he is still consuming alcohol, reports that patient still is. Hallucinations include seeing women who are not present and being across the street when she was out of town. Eyes are yellow, skin is brown d/t ethnicity. Significant sized bruise to right flank, denies fall, also denies fall. Patient reports pain is 7/10 to back. Patient reports feeling fatigued, reports patient sleeps 23 hours out of the day with limited water intake. Patient alert to self but disoriented about his own mental status and situation.
[2021-01-29 14:16] LABS: Add Manual Diff / Slide Review NO; Basophils Absolute Auto 0 /uL (0-100); Basophils Percent Auto 0.7 % (0-2); Eosinophils Absolute Auto 200 /uL (0-450); Eosinophils Percent Auto 3.5 % (2-4); Hematocrit 39.6 % (41-53); Hemoglobin 13.5 g/dL (13.5-17.5); Lymphocytes Absolute Auto 400 /uL (1100-4500); Lymphocytes Percent Auto 6.7 % (25-40); Mean Corpuscular HGB Conc 34.2 % (30-36); Mean Corpuscular Hemoglobin 35.7 PG (26-34); Mean Corpuscular Volume 104.4 fL (80-100); Monocytes Absolute Auto 900 /uL (0-900); Monocytes Percent Auto 16.1 % (3-14); Neutrophils Absolute Auto 3900 /uL (1500-7000); PTT Partial Thromboplastin Tim 34 SECONDS (26.4-36.2); Platelet Count 51 X10^3/uL (150-400); Red Blood Cell Count 3.79 X10^6/uL (4.5-5.9); Red Cell Distribution Width 18.4 % (11.6-14.8); White Blood Cell Count 5.3 X10^3/uL (4.5-11.0)
[2021-01-29 14:33] LABS: Gamma Glutamyl Transpeptidase 209 U/L (15-73); Lipase 393 U/L (23-300)
--- NOTE | 2021-01-29 14:37 | DI.CT.S_ITS ---
PROCEDURE: CT ABDOMEN PELVIS W CON INDICATIONS: Jaundice, ascites, cirrhosis abdominal distension TECHNIQUE: After the administration of oral and IV contrast, axial sections were acquired from the lung bases to the pubic symphysis. Coronal and sagittal reformats were performed. For radiation dose reduction, the following was used: automated exposure control, adjustment of mA and/or kV according to patient size. COMPARISON: [facility], US, US ABDOMEN LIMITED, 01/29/2021, 14:17. Merged With [facility], CT, CT ABDOMEN PELVIS W CON, 03/27/2018, 21:42. FINDINGS: Image quality: Excellent. Lung bases: Unremarkable. Heart: No significant findings. ABDOMEN: Liver: Cirrhotic liver morphology. No obvious lesion on this single portal phase exam. Gallbladder: Prominent. Cholelithiasis. Increased conspicuity of the gallbladder wall. Suspect trace pericholecystic fluid. Biliary ducts: No dilatation seen. Pancreas: Unremarkable. Spleen: Within normal limits. Measures 10.8 cm. Small splenule. Adrenal Glands: No nodule. Kidneys and Ureters: No hydronephrosis. Tiny cortical hypodensities which are too small to further characterize. Stomach and Bowel: The stomach is not significantly distended. There is trace fluid adjacent to the stomach and the 3rd portion of the duodenum. Mildly prominent loops of small bowel. No transition point identified. Normal appendix. Peritoneum: No pneumoperitoneum. Mild ascites. Ventral Wall: No hernia. Abdominal Nodes: No retroperitoneal or mesenteric adenopathy by size criteria. Vessels: No abdominal aortic aneurysm. Suspect recannulization of the periumbilical vein. Paraesophageal varices. Upper abdominal varices. PELVIS: Pelvic Organs: Unremarkable. Bladder: Only partially distended. No stones. Pelvic Nodes: No enlarged lymph nodes. Miscellaneous: Suspect fat containing left inguinal hernia. Bones: Unremarkable. IMPRESSION: 1. Cirrhosis and portal hypertension. Mild ascites. Paraesophageal varices. -Consider follow-up HCC screening with multiphase liver CT or liver MRI. 2. Prominent gallbladder with increased conspicuity of the gallbladder wall and suspected trace pericholecystic fluid. Gallstones. These findings are nonspecific but could be seen in cholecystitis or in the setting of ascites. -HIDA scan could be considered for further evaluation. 3. Trace retroperitoneal fluid near the 3rd portion of the duodenum. This could be seen in duodenitis or pancreatitis. 4. Mildly dilated loops of small bowel. No discrete transition point to suggest obstruction. Dictated by: Giovanny France M.D. on 01/29/2021 at 15:44 Approved by: Giovanny France M.D. on 01/29/2021 at 15:58
[2021-01-29 14:59] LABS: RBC Urine None Seen (0-5/HPF)
[2021-01-29 15:17] LABS: Ammonia (NH3) 60 umol/L (9-30)
[2021-01-29 15:37] LABS: Appearance Urine UA Clear; Color Urine UA BROWN
[2021-01-29 15:38] LABS: Glucose Urine UA NEGATIVE (Negative); Ketones Urine UA NEGATIVE (NEGATIVE); Nitrite Urine UA NEGATIVE (Negative); Occult Blood Urine UA Negative (Negative); Protein Urine UA Negative (Negative); Specific Gravity Urine UA 1.015 (1.000-1.035)
[2021-01-29 15:39] LABS: Bilirubin Urine UA 3+ (NEGATIVE); Leukocyte Esterase Urine UA NEGATIVE (NEGATIVE); Squamous Epithelial Cell Urine 0-1 /HPF (0-5/HPF); WBC Urine 1-5/HPF (0-5/HPF)
[2021-01-29 15:40] LABS: Bacteria Urine Few (2-10)
[2021-01-29 15:41] LABS: Culture Indicated Urine Cult Not Indicated; Ictotest Urine Positive (Negative)
[2021-01-29 15:50] LABS: Lactate (Lactic Acid) 1.6 mmol/L (0.7-2.1)
== END 2021-01-29 18:16 | disposition home or self-care (01) ==
PROVIDERS: Emergency Provider Emergency Medicine; PCP Family Medicine
DX: E80.6 Other disorders of bilirubin metabolism (principal); K80.20 Calculus of gallbladder without cholecystitis without obstruction; D69.6 Thrombocytopenia, unspecified; K70.10 Alcoholic hepatitis without ascites; L81.9 Disorder of pigmentation, unspecified
CPT/HCPCS: 36415; 74177; 76705; 81001; 82140; 82977; 83605; 83690; 85025; 85610; 85730; 99284

== ENCOUNTER → 2021-01-29 | Outpatient (CLI) | payer SELFPAY ==
[2021-01-29 14:03] LABS: Alanine Aminotransferase 65 IU/L (<50); Albumin 3.4 g/dL (3.5-5.0); Albumin Globulin Ratio 0.7 (1.0-2.8); Alkaline Phosphatase 409 U/L (38-126); Aspartate Aminotransferase 190 IU/L (17-59); BUN Creatinine Ratio 20.4 (6-22); Bilirubin Total 13.8 mg/dL (0.2-1.3); Blood Urea Nitrogen 11 mg/dL (9-20); Calcium 9.2 mg/dL (8.4-10.2); Carbon Dioxide 34 mmol/L (22-32); Chloride 97 mmol/L (98-107); Estimated Glomerular Filt Rate > 60.0 mL/min (>60); Ethanol (ETOH) < 10 mg/dL; Globulin 4.8 g/dL (1.7-4.1); Glucose 122 mg/dL (70-100); HEMOLYSIS < 15 (0-50); Potassium 3.9 mmol/L (3.4-5.1); Sodium 135 mmol/L (137-145); Total Protein 8.2 g/dL (6.3-8.2)
[2021-01-30 04:59] LABS: Hepatitis B Core AB w/Reflex Negative (Negative)
[2021-01-30 05:37] LABS: Hepatitis A Ab IgM Negative (Negative); Hepatitis A Ab Total Positive (Negative)
[2021-01-30 06:48] LABS: Complement C3 81 mg/dL (82-167)
[2021-02-02 13:55] LABS: Alpha 1 Globulin 0.3 g/dL (0.0-0.4); Alpha 2 Globulin 0.4 g/dL (0.4-1.0); Beta 1 Globulin 1.2 g/dL (0.7-1.3); Gamma Globulin 2.3 g/dL (0.4-1.8); Protein, Total 7.2 g/dL (6.0-8.5)
[2021-02-02 17:43] LABS: HIV 1 & 2 Ab/Ag 4th Gen Combo NEGATIVE (NEGATIVE)
[2021-02-03 11:16] LABS: Alpha-1 Globulin, Ur 5.5 % (.); Gamma Globulin, Ur 20.3 % (.); M-Spike % Not Observed % (Not Observed); Urine Total Protein 27.2 mg/dL (Not Estab.)
[2021-02-03 13:26] LABS: Antimyeloperoxidase AB <9.0 U/mL (0.0-9.0); Antiproteinase 3 AB 5.5 U/mL (0.0-3.5); Atypical P-ANCA Titer <1:20 titer (Neg:<1:20); C-ANCA Titer <1:20 titer (Neg:<1:20); P-ANCA Titer <1:20 titer (Neg:<1:20)
== END ==
PROVIDERS: PCP Family Medicine; Referring Provider Family Medicine; Visit Provider Family Medicine
DX: D69.6 Thrombocytopenia, unspecified (principal); R74.01 Elevation of levels of liver transaminase levels; R74.8 Abnormal levels of other serum enzymes; R21 Rash and other nonspecific skin eruption; R23.3 Spontaneous ecchymoses; F10.20 Alcohol dependence, uncomplicated; I10 Essential (primary) hypertension; K74.60 Unspecified cirrhosis of liver; K92.2 Gastrointestinal hemorrhage, unspecified
CPT/HCPCS: 36415; 80053; 80320; 82595; 83520; 84155; 84156; 84165; 84166; 86160; 86256; 86704; 86708; 87389; 87522

== ENCOUNTER 2021-03-06 17:58 | Inpatient (IN) | payer OTHER, SELFPAY ==
[2021-03-06] VITALS (14 sets, daily range): BP systolic 124–149; BP diastolic 66–88; PULSE 90–100; RESP 13–21; TEMP 36.6–36.9; O2SAT 91–98; BMI 27.4
[2021-03-06] MEDS: ONDANSETRON 4 MG/2 ML INJ IV (18:41)
[2021-03-06 18:52] LABS: Add Manual Diff / Slide Review NO; Basophils Absolute Auto 0 /uL (0-100); Basophils Percent Auto 0.7 % (0-2); Eosinophils Absolute Auto 100 /uL (0-450); Eosinophils Percent Auto 1.8 % (2-4); Hematocrit 37.2 % (41-53); Hemoglobin 12.9 g/dL (13.5-17.5); Lymphocytes Absolute Auto 600 /uL (1100-4500); Lymphocytes Percent Auto 12.7 % (25-40); Mean Corpuscular HGB Conc 34.7 % (30-36); Mean Corpuscular Hemoglobin 36.7 PG (26-34); Mean Corpuscular Volume 105.8 fL (80-100); Monocytes Absolute Auto 500 /uL (0-900); Monocytes Percent Auto 9.9 % (3-14); Neutrophils Absolute Auto 3700 /uL (1500-7000); Neutrophils Percent Auto 74.9 % (50-75); Platelet Count 74 X10^3/uL (150-400); Red Blood Cell Count 3.52 X10^6/uL (4.5-5.9); Red Cell Distribution Width 16.1 % (11.6-14.8); White Blood Cell Count 4.9 X10^3/uL (4.5-11.0)
[2021-03-06 18:59] LABS: INR 1.5 (0.9-1.3); Prothrombin Time 16.7 SECONDS (10.1-12.7)
[2021-03-06 19:02] LABS: PTT Partial Thromboplastin Tim 34 SECONDS (26.4-36.2)
[2021-03-06 19:05] LABS: Magnesium 1.5 mg/dL (1.6-2.3)
[2021-03-06 19:06] LABS: Alanine Aminotransferase 94 IU/L (<50); Albumin 3.1 g/dL (3.5-5.0); Albumin Globulin Ratio 0.7 (1.0-2.8); Alkaline Phosphatase 247 U/L (38-126); Aspartate Aminotransferase 230 IU/L (17-59); BUN Creatinine Ratio 14.3 (6-22); Bilirubin Total 10.4 mg/dL (0.2-1.3); Blood Urea Nitrogen 7 mg/dL (9-20); Calcium 8.4 mg/dL (8.4-10.2); Carbon Dioxide 29 mmol/L (22-32); Chloride 98 mmol/L (98-107); Estimated Glomerular Filt Rate > 60.0 mL/min (>60); Globulin 4.7 g/dL (1.7-4.1); Glucose 80 mg/dL (70-100); HEMOLYSIS < 15 (0-50); Lipase 342 U/L (23-300); Potassium 3.4 mmol/L (3.4-5.1); Sodium 133 mmol/L (137-145); Total Protein 7.8 g/dL (6.3-8.2)
[2021-03-06 19:09] LABS: Ammonia (NH3) 118 umol/L (9-30)
--- NOTE | 2021-03-06 19:11 | ED.ABDPAIN ---
HPI - Abdominal Pain General Chief Complaint: Abdominal Pain Stated Complaint: abdominal x2 days swollen ankles Time Seen by Provider: 03/06/21 18:14 History of Present Illness HPI narrative: 50-year-old male, former smoker and former heavy drinker with known hepatitis a and cirrhosis presents with his in the chief complaint of increased abdominal swelling and pain over the past 24 hours. Additionally he has developed some swelling in both lower extremities. He denies any fever chills. He has had nausea but no vomiting. He denies any change in his bowel habits. He is not dizzy nor weak or lightheaded. states that he has been a bit confused and acting out over the course of the day, not unlike previous visits for elevated ammonia. She states that frequently he does not take his medications when she is out of town because he does not like that it gives him loose stools. The patient denies any recent alcohol and states that he has been sober for many months. He denies any street drugs. He has had no recent trauma or injury. He has had abdominal pain as stated but denies any change in diet or new medications. He states the pain is worse when he moves and improves with rest. Related Data Previous Rx's Medication Instructions Recorded ondansetron 4 mg disintegrating 4 mg TRANSLINGUAL Q6H PRN #30 tab 06/07/19 tablet lactulose 10 gram/15 mL oral 15 ml PO BID 30 Days #900 ml 05/21/20 solution trazodone 50 mg tablet 25 - 50 mg PO BEDTIME PRN #30 tab 07/03/20 pantoprazole 40 mg tablet,delayed 40 mg PO BID #60 tab 09/18/20 release (Protonix) bupropion HCl 75 mg tablet See Rx Instructions .ROUTE 11/19/20 .COMPLEX #60 tab nadolol 20 mg tablet 20 mg PO DAILY #90 tab 12/19/20 tramadol 100 mg tablet 100 mg PO Q8H #90 tab 02/27/21 Allergies Allergy/AdvReac Type Severity Reaction Status Date / Time ciprofloxacin Allergy Rash Verified 01/29/21 14:05 Sulfa (Sulfonamide Allergy Rash Verified 01/29/21 14:05 Antibiotics) Review of Systems Review of Systems Narrative: GENERAL: Denies chills, fatigue, malaise, fever, sweats. HEENT: Denies sinus pain, ear pain, sore throat, difficulty swallowing, dizziness. RESPIRATORY: Denies dyspnea, cough, wheezing, hemoptysis, sputum. CARDIOVASCULAR: Denies chest pain, palpitations, orthopnea, edema, GASTROINTESTINAL: See HPI : Denies dysuria, frequency, incontinence, hematuria, urinary retention. MUSCULOSKELETAL: denies weakness, joint pain, or bony pain SKIN: Denies rash, skin lesions, or other NEUROLOGIC: Denies weakness, headache, numbness, change in speech, confusion, seizures, incoordination. PSYCHIATRIC: No concerning psychosocial issues. 12 point review of systems is negative except for those stated above Patient History Medical History Acute upper gastrointestinal bleeding Alcoholic cirrhosis of liver Allergies (~1981) Anxiety Cholelithiasis Cirrhosis Constipation Elevated alkaline phosphatase level Esophageal varices Hallucinations, visual Hepatitis A Hyperlipidemia, mixed Hypertension Insomnia Rash and nonspecific skin eruption Spontaneous ecchymosis Thrombocytopenia Transaminitis Uncontrolled daytime somnolence Surgical History Derangement of left patella (~2008) Family History Father Hypertension Grandfather Alcoholic Social History marital status: household members: spouse pets and animals: Yes education level: high school occupational status: unemployed 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 priscilla/restoration: Spiritism leisure activities: other other: Boating/Fishing seatbelt use: always helmet use: Yes water heater temp set < 120 deg: Yes working smoke detector in home: Yes fire extinguisher in home: Yes carbon monox detector in home: Yes firearms in home: No do you feel safe at home: Yes Smoking Status: Former smoker alcohol intake: current substance use type: does not use during the past year weight has: other well-balanced diet: about half the time daily servings fruits/ve-4 caffeine: Yes (Rare/Never drink soda) eating out: rarely or never Type(s) of exercise: walking frequency: 1-2 times per week duration: 30-45 minutes/day additional social history: Recently quit taking alcohol, Light smoker in , Stationary bike. Smoking Status: Former smoker tobacco type: cigarettes alcohol intake frequency: 0-2 drinks per day Substance Use Type: does not use Exam Narrative Exam Narrative: GENERAL: [50 year old patient appears older than stated age. Chronically ill in moderate distress HEAD: Atraumatic. Normocephalic. EYES: Pupils equal round and reactive. Extraocular motions intact. No scleral icterus. No injection or drainage. ENT: Nose without bleeding, purulent drainage. Throat without erythema, tonsillar hypertrophy or exudate. Airway patent. NECK: Trachea midline. Non tender CARDIOVASCULAR: Regular rate and rhythm without murmurs, gallops, or rubs. RESPIRATORY: Clear to auscultation. Breath sounds equal bilaterally. No wheezes, rales, or rhonchi. GASTROINTESTINAL: Abdomen soft, mild distension and generalized tenderness. No significant ascites or large fluid wave EXTREMITIES: No edema or joint tenderness. BACK: Nontender without deformity or crepitance. No flank tenderness. NEURO: AOx3. SKIN: No rash or erythema of visible areas Initial Vital Signs Initial Vital Signs: Vital Signs Temperature 98.5 F 03/06/21 18:18 Pulse Rate 100 H 03/06/21 18:18 Respiratory Rate 16 03/06/21 18:18 Blood Pressure 148/70 H 03/06/21 18:18 Pulse Oximetry 97 03/06/21 18:18 Course Orders Ordered: ED Orders 03/06/21 18:25 EKG-12 Lead Stat 03/06/21 18:45 Complete Blood Count AUTO DIFF Stat Comprehensive Metabolic Panel Stat Ethanol (ETOH) Stat Lipase Stat Magnesium Stat Partial Thromboplastin Time Stat Prothrombin Time INR Stat 03/06/21 18:55 Ammonia (NH3) Stat 03/06/21 19:14 US abdomen limited Stat 03/06/21 19:26 Ictotest Urine Stat Urine Microscopic Stat 03/06/21 19:34 COVID19 - ADMIT ([facility] swab/PCR) Stat 03/06/21 21:03 CT angio chest abdomen pelvis Stat Acetaminophen (Acetaminophen 325 Mg Tablet) 650 mg PO Q8H PRN PRN Reason: Fever/Mild Pain (1-3) Folic Acid (Folic Acid 1 Mg Tablet) 1 mg PO DAILY ROBERTO Lactulose (Lactulose 20 Gm/30 Ml Solution) 30 gm PO Q6H ROBERTO Last Admin: 03/07/21 00:40 Dose: 30 gm Documented by: MARA Lorazepam (Lorazepam 1 Mg Tablet) 2 mg PO Q8HR ROBERTO; Protocol Multivitamins (Multivitamin 1 Tablet) 1 tab PO DAILY [facility] Nadolol (Nadolol 40 Mg Tablet) 20 mg PO DAILY [facility] Ondansetron HCl (Ondansetron 4 Mg/2 Ml Inj) 4 mg IV Q8HR PRN PRN Reason: Nausea And Vomiting Oxycodone HCl (Oxycodone Ir 10 Mg Tablet) 5 mg PO Q6HR PRN PRN Reason: Pain, Severe (7-10) Pantoprazole Sodium (Pantoprazole Dr 40 Mg Tablet) 40 mg PO 0700 ROBERTO Thiamine HCl (Thiamine 100 Mg Tablet) 100 mg PO DAILY ROBERTO Stop: 03/10/21 09:01 Discontinued Medications Hydromorphone HCl (Hydromorphone 0.5 Mg Inj) 0.5 mg IV NOW ONE Stop: 03/06/21 19:27 Last Admin: 03/06/21 19:44 Dose: 0.5 mg Documented by: DANDRE Sodium Chloride (Normal Saline 0.9%) 500 mls @ 1,000 mls/hr IV BOLUS ONE Stop: 03/06/21 19:55 Last Infusion: 03/06/21 20:30 Dose: 0 mls/hr Documented by: Admin: 03/06/21 19:44 Dose: 1,000 mls/hr Documented by: DANDRE Magnesium Sulfate (Magnesium Sulfate) 2 gm in 50 mls @ 25 mls/hr IV NOW ONE Stop: 03/07/21 01:27 Last Admin: 03/07/21 00:03 Dose: 25 mls/hr Documented by: MARA Cosigned by: DONNA Lactulose (Lactulose 20 Gm/30 Ml Solution) 20 gm PO NOW ONE Stop: 03/06/21 19:14 Last Admin: 03/06/21 19:31 Dose: 20 gm Documented by: DANDRE Ondansetron HCl (Ondansetron 4 Mg/2 Ml Inj) 4 mg IV NOW ONE Stop: 03/06/21 18:26 Last Admin: 03/06/21 18:41 Dose: 4 mg Documented by: DANDRE Vital Signs Vital signs: Vital Signs - 8 hr 03/06/21 18:18 03/06/21 18:30 03/06/21 18:32 Temperature 98.5 F Pulse Rate 100 H 96 H 97 H Respiratory Rate 16 21 Blood Pressure 148/70 H 149/77 H Pulse Oximetry 97 95 98 03/06/21 19:00 03/06/21 19:30 03/06/21 19:48 Temperature Pulse Rate 93 H 94 H 92 H Respiratory Rate 16 18 Blood Pressure 145/74 H 139/73 Pulse Oximetry 96 95 94 03/06/21 20:00 03/06/21 20:30 03/06/21 21:00 Temperature Pulse Rate 90 96 H 95 H Respiratory Rate 15 15 13 Blood Pressure 138/72 139/73 141/76 H Pulse Oximetry 92 94 94 03/06/21 21:27 03/06/21 21:30 03/06/21 22:00 Temperature Pulse Rate 95 H 94 H 97 H Respiratory Rate Blood Pressure 140/67 137/66 126/66 Pulse Oximetry 92 94 91 MDM - Abdominal Pain Lab Data Result diagrams: 03/06/21 18:45 03/06/21 18:45 Labs: Lab Results 03/06/21 03/06/21 03/06/21 Range/Units 18:45 18:45 18:45 WBC 4.9 (4.5-11.0) X10^3/uL RBC 3.52 L (4.5-5.9) X10^6/uL Hgb 12.9 L (13.5-17.5) g/dL Hct 37.2 L (41-53) % MCV 105.8 H (80-100) fL MCH 36.7 H (26-34) PG MCHC 34.7 (30-36) % RDW 16.1 H (11.6-14.8) % Plt Count 74 L (150-400) X10^3/uL Neut % (Auto) 74.9 (50-75) % Lymph % (Auto) 12.7 L (25-40) % Becker % (Auto) 9.9 (3-14) % Eos % (Auto) 1.8 L (2-4) % Baso % (Auto) 0.7 (0-2) % Neut # (Auto) 3700 (1458-6766) /uL Lymph # (Auto) 600 L (7193-7772) /uL Becker # (Auto) 500 (0-900) /uL Eos # (Auto) 100 (0-450) /uL Baso # (Auto) 0 (0-100) /uL PT 16.7 H (10.1-12.7) SECONDS INR 1.5 H (0.9-1.3) APTT 34 (26.4-36.2) SECONDS Sodium 133 L (137-145) mmol/L Potassium 3.4 (3.4-5.1) mmol/L Chloride 98 (98-107) mmol/L Carbon Dioxide 29 (22-32) mmol/L BUN 7 L (9-20) mg/dL Creatinine 0.49 L (0.66-1.25) mg/dL Estimated GFR > 60.0 (>60) mL/min BUN/Creatinine Ratio 14.3 (6-22) Glucose 80 (70-100) mg/dL Calcium 8.4 (8.4-10.2) mg/dL Magnesium (1.6-2.3) mg/dL Total Bilirubin 10.4 H (0.2-1.3) mg/dL AST 230 H (17-59) IU/L ALT 94 H (<50) IU/L Alkaline Phosphatase 247 H (38-126) U/L Ammonia (9-30) umol/L Total Protein 7.8 (6.3-8.2) g/dL Albumin 3.1 L (3.5-5.0) g/dL Globulin 4.7 H (1.7-4.1) g/dL Albumin/Globulin Ratio 0.7 L (1.0-2.8) Lipase 342 H (23-300) U/L Ur Bilirubin Confirm (Negative) Urine RBC (0-5/HPF) Urine WBC (0-5/HPF) Ur Squamous Epith Cells (0-5/HPF) Amorphous Sediment Urine Bacteria (None) Urine Mucus (Negative) Ur Culture Indicated? Ethyl Alcohol ( - 10) mg/dL SARS-CoV-2 (PCR) (Negative) 03/06/21 03/06/21 03/06/21 Range/Units 18:45 18:45 18:55 WBC (4.5-11.0) X10^3/uL RBC (4.5-5.9) X10^6/uL Hgb (13.5-17.5) g/dL Hct (41-53) % MCV (80-100) fL MCH (26-34) PG MCHC (30-36) % RDW (11.6-14.8) % Plt Count (150-400) X10^3/uL Neut % (Auto) (50-75) % Lymph % (Auto) (25-40) % Becker % (Auto) (3-14) % Eos % (Auto) (2-4) % Baso % (Auto) (0-2) % Neut # (Auto) (9112-6748) /uL Lymph # (Auto) (8172-6851) /uL Becker # (Auto) (0-900) /uL Eos # (Auto) (0-450) /uL Baso # (Auto) (0-100) /uL PT (10.1-12.7) SECONDS INR (0.9-1.3) APTT (26.4-36.2) SECONDS Sodium (137-145) mmol/L Potassium (3.4-5.1) mmol/L Chloride (98-107) mmol/L Carbon Dioxide (22-32) mmol/L BUN (9-20) mg/dL Creatinine (0.66-1.25) mg/dL Estimated GFR (>60) mL/min BUN/Creatinine Ratio (6-22) Glucose (70-100) mg/dL Calcium (8.4-10.2) mg/dL Magnesium 1.5 L (1.6-2.3) mg/dL Total Bilirubin (0.2-1.3) mg/dL AST (17-59) IU/L ALT (<50) IU/L Alkaline Phosphatase (38-126) U/L Ammonia 118 H (9-30) umol/L Total Protein (6.3-8.2) g/dL Albumin (3.5-5.0) g/dL Globulin (1.7-4.1) g/dL Albumin/Globulin Ratio (1.0-2.8) Lipase (23-300) U/L Ur Bilirubin Confirm (Negative) Urine RBC (0-5/HPF) Urine WBC (0-5/HPF) Ur Squamous Epith Cells (0-5/HPF) Amorphous Sediment Urine Bacteria (None) Urine Mucus (Negative) Ur Culture Indicated? Ethyl Alcohol 49 H ( - 10) mg/dL SARS-CoV-2 (PCR) (Negative) 03/06/21 03/06/21 Range/Units 19:26 19:34 WBC (4.5-11.0) X10^3/uL RBC (4.5-5.9) X10^6/uL Hgb (13.5-17.5) g/dL Hct (41-53) % MCV (80-100) fL MCH (26-34) PG MCHC (30-36) % RDW (11.6-14.8) % Plt Count (150-400) X10^3/uL Neut % (Auto) (50-75) % Lymph % (Auto) (25-40) % Becker % (Auto) (3-14) % Eos % (Auto) (2-4) % Baso % (Auto) (0-2) % Neut # (Auto) (5722-0497) /uL Lymph # (Auto) (8966-7175) /uL Becker # (Auto) (0-900) /uL Eos # (Auto) (0-450) /uL Baso # (Auto) (0-100) /uL PT (10.1-12.7) SECONDS INR (0.9-1.3) APTT (26.4-36.2) SECONDS Sodium (137-145) mmol/L Potassium (3.4-5.1) mmol/L Chloride (98-107) mmol/L Carbon Dioxide (22-32) mmol/L BUN (9-20) mg/dL Creatinine (0.66-1.25) mg/dL Estimated GFR (>60) mL/min BUN/Creatinine Ratio (6-22) Glucose (70-100) mg/dL Calcium (8.4-10.2) mg/dL Magnesium (1.6-2.3) mg/dL Total Bilirubin (0.2-1.3) mg/dL AST (17-59) IU/L ALT (<50) IU/L Alkaline Phosphatase (38-126) U/L Ammonia (9-30) umol/L Total Protein (6.3-8.2) g/dL Albumin (3.5-5.0) g/dL Globulin (1.7-4.1) g/dL Albumin/Globulin Ratio (1.0-2.8) Lipase (23-300) U/L Ur Bilirubin Confirm Positive H (Negative) Urine RBC 5-10/hpf H (0-5/HPF) Urine WBC 0-1/hpf (0-5/HPF) Ur Squamous Epith Cells 0-1 /hpf (0-5/HPF) Amorphous Sediment 1+ Urine Bacteria Occasional (0-1) (None) Urine Mucus 1+ H (Negative) Ur Culture Indicated? Cult not indicated Ethyl Alcohol ( - 10) mg/dL SARS-CoV-2 (PCR) Negative (Negative) Point of care testing: Urine Dip Bedside Urine Glucose Negative Bedside Urine Bilirubin + 1 Bedside Urine Ketone +++ 80 Urine Specific [place] 1.015 Bedside Urine Occult Blood ++ Bedside Urine pH 6.5 Bedside Urine Protein - Negative Bedside Urine Urobilinogen 2+ 4mg Bedside Urine Nitrite - Negative Bedside Urine Leukocytes - Negative Esterase Imaging Data US - abdomen: Radiologist's Impression: Launch?Image [address] [address] Ultrasound Report Signed Patient: Balta Jarrett MR#: [id number] : 1970 Acct:[id number] Age/Sex: 50 / M Date of Service: 03/06/21 Loc: ED Accession Number: [id number] ?? Procedure: US abdomen limited Ordering Provider: Huy Ross D.O. PROCEDURE:? US ABDOMEN LIMITED ? INDICATIONS:? PAIN AND ACUTE LIVER FAILURE ? TECHNIQUE:? Real-time focused scanning was performed of the abdomen, with image documentation.? Color and pulse Doppler interrogation was also performed on the area of interest.? ? COMPARISON:? [facility], US ABDOMEN LIMITED, 01/29/2021, 14:17. ? FINDINGS:? Nodular liver surface is consistent with cirrhosis.? The hepatic artery is seen with peak systolic velocity of 129 cm/second with resistive index of 0.7.? The main portal vein is not well visualized.? A hypoechoic structure in the region of the main portal vein is seen without definite vascular flow.? ? Small to moderate volume of ascites in the right upper quadrant.? ? The included gallbladder contains stones and sludge.? No significant gallbladder wall thickening. ? IMPRESSION:? 1. Hepatic cirrhosis with upper abdominal ascites. 2. The main portal vein is not well visualized, and patency cannot be confirmed.? Normal hepatic arterial flow. 3. Cholelithiasis.? ? ? Dictated by: Darin Venegas M.D. on 03/06/2021 at 22:19 ? ? Approved by: Darin Venegas M.D. on 03/06/2021 at 22:22 ? CT scan - abdomen/pelvis: Radiologist's Impression: Balta Jarrett??50??M??1970 ? Allergy/Adv: ciprofloxacin, Sulfa (Sulfonamide Antibiotics) (More??) Close Chest/Abdomen/Pelvis CTA (Signed) Darin Venegas - 03/06/21 Abdomen Ultrasound (Signed) Darin Venegas - 03/06/21 Abdomen/Pelvis CT (Signed) Giovanny France - 01/29/21 Abdomen Ultrasound (Signed) Michoacano Mcintosh - 01/29/[address] (Signed) Mague Mathis - 04/19/20 Abdomen Ultrasound (Signed) Aixa Gambino - 04/19/[address] (Signed) Beth Duran - 04/19/19 Chest X-Ray (Signed) Sulaiman Hein - 10/21/18 Abdomen Ultrasound (Signed) Norma Pugh - 03/27/18 Abdomen/Pelvis CT (Signed) Omar Saenz - 03/27/[address] (Signed) Omar Saenz - 03/27/[address] (Signed) Omar Saenz - 03/27/18 Launch?[place] [address] CT Scan Report Signed Patient: Balta Jarrett MR#: [id number] : 1970 Acct:[id number] Age/Sex: 50 / M Date of Service: 03/06/21 Loc: ED Accession Number: [id number] ?? Procedure: CT angio chest abdomen pelvis Ordering Provider: Huy Ross D.O. PROCEDURE:? CT ANGIO CHEST ABDOMEN PELVIS ? INDICATIONS:? pain, swelling, abnormal US ? TECHNIQUE:? Precontrast 5 mm thick sections acquired from the lung apices to the iliac crests.? After the administration of intravenous contrast, 2.5 mm thick sections again acquired from the lung apices to the iliac crests.? Maximum intensity projection (MIP) oblique sagittal and coronal reformats were then acquired.? For radiation dose reduction, the following was used:? automated exposure control.? ? COMPARISON:? [facility], US, US ABDOMEN LIMITED, 03/06/2021, 20:45.? [facility], CT, CT ABDOMEN PELVIS W CON, 01/29/2021, 14:46. ? FINDINGS:? Image quality:? Excellent.? ? VASCULATURE: The heart is normal in size.? Mild coronary artery atherosclerotic calcifications.? The main pulmonary artery is normal in size.? The study is not timed for evaluation of the pulmonary artery for filling defects.? The ascending aorta, aortic arch, and descending thoracic aorta are normal in size.? The origins of the major head and neck vessels are patent.? The abdominal aorta is normal in size.? The celiac trunk, superior mesenteric artery, inferior mesenteric artery, and renal arteries are widely patent.? Mild calcified atherosclerotic plaque is seen in the common and internal iliac arteries without significant stenosis.? The external iliac arteries are patent.? The included common, superficial, and deep femoral arteries are patent bilaterally. ? This exam was performed with arterial phase timing, so the portal vein is not well evaluated.? No cavernous transformation of the portal vein is seen. ? CHEST:? Lungs and pleura:? No acute airspace opacities.? No pleural effusions or pneumothorax.? Central and peripheral airways are patent and normal in caliber.? ? Mediastinum:? Heart size is normal.? No pericardial effusion.? No mediastinal or hilar adenopathy by size criteria.? Central pulmonary arteries are normal in size.? Esophagus is normal in caliber.? No hiatal hernias.? ? Bones and chest wall:? No axillary adenopathy by size criteria.? Thyroid appears normal.? No suspicious bony lesions.? No vertebral body compression fractures.? ? ? ABDOMEN:? Solid organs:? The liver surface is nodular, consistent with cirrhosis.? No enhancing mass is seen in the early arterial phase of contrast.? The gallbladder contains multiple calcified gallstones.? Biliary system is non dilated.? Pancreas enhances normally.? The spleen is moderately enlarged, measuring up to 14.9 cm in anterior-posterior dimension.? No adrenal nodules.? Both kidneys are normal in size and enhancement, without hydronephrosis.? ? Peritoneum and bowel:? There is a small volume of ascites in the abdomen and pelvis.? No pneumoperitoneum.? Bowel loops are normal in caliber and wall thickness.? ? Nodes and vessels:? No retroperitoneal or mesenteric adenopathy by size criteria.? Inferior vena cava is normal in morphology.? Paraesophageal varices are present. ? Miscellaneous:? No ventral hernias.? ? ? PELVIS:? Genitourinary:? Bladder wall thickness is normal.? ? Miscellaneous:? No inguinal hernias or adenopathy.? No ventral hernias.? ? Bones:? No suspicious bony lesions.? No vertebral body compression fractures.? Mild degenerative changes are seen in the spine and sacroiliac joints. ? ? IMPRESSION:? 1. No acute arterial abnormality.? ? 2. Hepatic cirrhosis with evidence of portal hypertension including splenomegaly, paraesophageal varices, and small amount of ascites.? Portal vein patency is not well evaluated on this arteriogram.? No signs of chronic cavernous transformation of the portal vein. ? ? Dictated by: Darin Venegas M.D. on 03/06/2021 at 22:07 ? ? Approved by: Darin Venegas M.D. on 03/06/2021 at 22:18 ? Discharge Plan Departure Patient Disposition: Admitted As Inpatient Clinical Impression: Acute hepatic encephalopathy, Abdominal pain Admit Date/Time: 03/06/21 22:36 Admit Provider: Wilver Myles
--- NOTE | 2021-03-06 19:14 | DI.US.S_ITS ---
PROCEDURE: US ABDOMEN LIMITED INDICATIONS: PAIN AND ACUTE LIVER FAILURE TECHNIQUE: Real-time focused scanning was performed of the abdomen, with image documentation. Color and pulse Doppler interrogation was also performed on the area of interest. COMPARISON: [facility], US, US ABDOMEN LIMITED, 01/29/2021, 14:17. FINDINGS: Nodular liver surface is consistent with cirrhosis. The hepatic artery is seen with peak systolic velocity of 129 cm/second with resistive index of 0.7. The main portal vein is not well visualized. A hypoechoic structure in the region of the main portal vein is seen without definite vascular flow. Small to moderate volume of ascites in the right upper quadrant. The included gallbladder contains stones and sludge. No significant gallbladder wall thickening. IMPRESSION: 1. Hepatic cirrhosis with upper abdominal ascites. 2. The main portal vein is not well visualized, and patency cannot be confirmed. Normal hepatic arterial flow. 3. Cholelithiasis. Dictated by: Darin Venegas M.D. on 03/06/2021 at 22:19 Approved by: Darin Venegas M.D. on 03/06/2021 at 22:22
[2021-03-06] MEDS: LACTULOSE 20 GM/30 ML SOLUTION PO (19:31)
[2021-03-06 19:44] LABS: Ictotest Urine Positive (Negative)
[2021-03-06] MEDS: SODIUM CHLORIDE 0.9% 500 ML 1000 ML IV (19:44)
[2021-03-06] MEDS: HYDROMORPHONE 0.5 MG INJ IV (19:44)
[2021-03-06 19:51] LABS: Amorphous Sediment Urine 1+; Bacteria Urine Occasional (0-1); Culture Indicated Urine Cult Not Indicated; Mucus Urine 1+ (Negative); RBC Urine 5-10/HPF (0-5/HPF); Squamous Epithelial Cell Urine 0-1 /HPF (0-5/HPF); WBC Urine 0-1/HPF (0-5/HPF)
[2021-03-06 19:57] LABS: Ethanol (ETOH) 49 mg/dL
[2021-03-06 20:48] LABS: COVID19 - ADMIT (NP swab/PCR) Negative (Negative)
--- NOTE | 2021-03-06 21:03 | DI.CT.S_ITS ---
PROCEDURE: CT ANGIO CHEST ABDOMEN PELVIS INDICATIONS: pain, swelling, abnormal US TECHNIQUE: Precontrast 5 mm thick sections acquired from the lung apices to the iliac crests. After the administration of intravenous contrast, 2.5 mm thick sections again acquired from the lung apices to the iliac crests. Maximum intensity projection (MIP) oblique sagittal and coronal reformats were then acquired. For radiation dose reduction, the following was used: automated exposure control. COMPARISON: [facility], US, US ABDOMEN LIMITED, 03/06/2021, 20:45. [facility], CT, CT ABDOMEN PELVIS W CON, 01/29/2021, 14:46. FINDINGS: Image quality: Excellent. VASCULATURE: The heart is normal in size. Mild coronary artery atherosclerotic calcifications. The main pulmonary artery is normal in size. The study is not timed for evaluation of the pulmonary artery for filling defects. The ascending aorta, aortic arch, and descending thoracic aorta are normal in size. The origins of the major head and neck vessels are patent. The abdominal aorta is normal in size. The celiac trunk, superior mesenteric artery, inferior mesenteric artery, and renal arteries are widely patent. Mild calcified atherosclerotic plaque is seen in the common and internal iliac arteries without significant stenosis. The external iliac arteries are patent. The included common, superficial, and deep femoral arteries are patent bilaterally. This exam was performed with arterial phase timing, so the portal vein is not well evaluated. No cavernous transformation of the portal vein is seen. CHEST: Lungs and pleura: No acute airspace opacities. No pleural effusions or pneumothorax. Central and peripheral airways are patent and normal in caliber. Mediastinum: Heart size is normal. No pericardial effusion. No mediastinal or hilar adenopathy by size criteria. Central pulmonary arteries are normal in size. Esophagus is normal in caliber. No hiatal hernias. Bones and chest wall: No axillary adenopathy by size criteria. Thyroid appears normal. No suspicious bony lesions. No vertebral body compression fractures. ABDOMEN: Solid organs: The liver surface is nodular, consistent with cirrhosis. No enhancing mass is seen in the early arterial phase of contrast. The gallbladder contains multiple calcified gallstones. Biliary system is non dilated. Pancreas enhances normally. The spleen is moderately enlarged, measuring up to 14.9 cm in anterior-posterior dimension. No adrenal nodules. Both kidneys are normal in size and enhancement, without hydronephrosis. Peritoneum and bowel: There is a small volume of ascites in the abdomen and pelvis. No pneumoperitoneum. Bowel loops are normal in caliber and wall thickness. Nodes and vessels: No retroperitoneal or mesenteric adenopathy by size criteria. Inferior vena cava is normal in morphology. Paraesophageal varices are present. Miscellaneous: No ventral hernias. PELVIS: Genitourinary: Bladder wall thickness is normal. Miscellaneous: No inguinal hernias or adenopathy. No ventral hernias. Bones: No suspicious bony lesions. No vertebral body compression fractures. Mild degenerative changes are seen in the spine and sacroiliac joints. IMPRESSION: 1. No acute arterial abnormality. 2. Hepatic cirrhosis with evidence of portal hypertension including splenomegaly, paraesophageal varices, and small amount of ascites. Portal vein patency is not well evaluated on this arteriogram. No signs of chronic cavernous transformation of the portal vein. Dictated by: Darin Venegas M.D. on 03/06/2021 at 22:07 Approved by: Darin Venegas M.D. on 03/06/2021 at 22:18
--- NOTE | 2021-03-06 22:47 | P.HP_ITS ---
History of Present Illness History of Present Illness Date Patient Seen: 03/06/21 Time Patient Seen: 22:30 Chief complaint: abdominal x2 days swollen ankles Narrative: Mr. Jarrett is a 50M with PMH EtOH cirrhosis complicated by hepatic encephalopathy, previous esophageal variceal bleed s/p banding, chronic thrombocytopenia who presents with abdominal pain, swelling, and confusion. Patient has a long known history of cirrhosis. However he has not followed up very closely for this. Per the patient his last drink of alcohol was a couple months ago. He has stopped taking lactulose because of side effects. 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 He had esophageal variceal bleeding approximately two years ago, he had follow up with EGD very soon after that, but he lost his health insurance, and has not had an EGD since. More recently he stopped taking lactulose, he has developed difficulty sleeping, and confusion. He has felt cold, but not fevers nor shaking chills. He has noticed that his abdomen has been distended for a few days and has not developed some pain in his right upper abdomen. He has not noticed hematemesis, hematochezia or black stools. He has noted a 20lb weight loss. He also stated he was diagnosed with hepatitis A, one month ago. In the ED workup was done he was found to be mildly tachycardic. Hgb 12.9, plts 74, INR 1.5, Na 133, creatinine 0.49, bili 10.4, ast 230, alt 94, alk phos 247, lipase 342, ammonia 118, mag 1.5, EtOH 49. He did get an abdominal ultrasound which showed no acute process but did show small to moderate ascites. CT abdomen showed no acute process but did show small amount of ascites. He was given lactulose and admitted for further treatment. Patient History Medical History Acute upper gastrointestinal bleeding Alcoholic cirrhosis of liver Allergies (~1981) Anxiety Cholelithiasis Cirrhosis Constipation Elevated alkaline phosphatase level Esophageal varices Hallucinations, visual Hepatitis A Hyperlipidemia, mixed Hypertension Insomnia Rash and nonspecific skin eruption Spontaneous ecchymosis Thrombocytopenia Transaminitis Uncontrolled daytime somnolence Surgical History Derangement of left patella (~2008) Family & Social History Family History Father Hypertension Grandfather Alcoholic Social History: household members spouse Prior Living Arrangements House other Boating/Fishing Safety & Behavioral: Feels Safe in Current Yes Environment Been Physically Hurt or No Threatened By a Person Suicidal Ideation Description Vague Suicide Plan Description No Plan Tobacco & Substance use: Smoking Status Former smoker alcohol intake current alcohol intake frequency 0-2 drinks per day Substance Use Type does not use Meds Home Medications and Allergies Home Medications Medication Instructions Recorded Confirmed Type ondansetron 4 mg disintegrating 4 mg TRANSLINGUAL Q6H PRN #30 tab 06/07/19 03/07/21 Rx tablet lactulose 10 gram/15 mL oral 15 ml PO BID 30 Days #900 ml 05/21/20 03/07/21 Rx solution trazodone 50 mg tablet 25 - 50 mg PO BEDTIME PRN #30 tab 07/03/20 03/07/21 Rx pantoprazole 40 mg tablet,delayed 40 mg PO BID #60 tab 09/18/20 03/07/21 Rx release (Protonix) bupropion HCl 75 mg tablet See Rx Instructions .ROUTE 11/19/20 03/07/21 Rx .COMPLEX #60 tab nadolol 20 mg tablet 20 mg PO DAILY #90 tab 12/19/20 03/07/21 Rx tramadol 100 mg tablet 100 mg PO Q8H #90 tab 02/27/21 03/07/21 Rx Allergies Allergy/AdvReac Type Severity Reaction Status Date / Time ciprofloxacin Allergy Rash Verified 01/29/21 14:05 Sulfa (Sulfonamide Allergy Rash Verified 01/29/21 14:05 Antibiotics) Review of Systems Review of Systems Narrative: 14 systems reviewed and negative aside from what is noted in HPI Exam Vital Signs (past 8 hours): - 03/06/21 18:18 03/06/21 18:30 03/06/21 18:32 Temperature 98.5 F Pulse Rate 100 H 96 H 97 H Respiratory Rate 16 21 Blood Pressure 148/70 H 149/77 H Pulse Oximetry 97 95 98 03/06/21 19:00 03/06/21 19:30 03/06/21 19:48 Temperature Pulse Rate 93 H 94 H 92 H Respiratory Rate 16 18 Blood Pressure 145/74 H 139/73 Pulse Oximetry 96 95 94 03/06/21 20:00 03/06/21 20:30 03/06/21 21:00 Temperature Pulse Rate 90 96 H 95 H Respiratory Rate 15 15 13 Blood Pressure 138/72 139/73 141/76 H Pulse Oximetry 92 94 94 03/06/21 21:27 03/06/21 21:30 03/06/21 22:00 Temperature Pulse Rate 95 H 94 H 97 H Respiratory Rate Blood Pressure 140/67 137/66 126/66 Pulse Oximetry 92 94 91 03/06/21 23:00 03/06/21 23:35 Temperature 97.9 F Pulse Rate 98 H 91 H Respiratory Rate 18 18 Blood Pressure 124/79 148/88 H Pulse Oximetry 94 95 Oxygen Delivery Method Room Air Oxygen Flow Rate 0 Narrative Exam Narrative: GEN: no acute distress HEENT: +jaundiced conjunctiva, moist mucous membranes NECK: trachea midline, no JVD CV: regular rate and rhyhtm, 2/6 systolic ejection murmur PULM: clear bilaterally, no wheezes, rhonchi, rales ABD: soft, mildly tender, mildly distended, no rebound/guarding, normal bowel sounds EXT: warm and well perfused, trace edema bilaterally NEURO: awake and alert, but slow/confused, +asterixis PSYCH: calm, pleasant Objective Labs Result Diagrams: 03/06/21 18:45 03/06/21 18:45 Labs: Laboratory Results - last 24 hr 03/06/21 03/06/21 03/06/21 18:45 18:45 18:45 WBC 4.9 RBC 3.52 L Hgb 12.9 L Hct 37.2 L MCV 105.8 H MCH 36.7 H MCHC 34.7 RDW 16.1 H Plt Count 74 L Neut % (Auto) 74.9 Lymph % (Auto) 12.7 L [place] % (Auto) 9.9 Eos % (Auto) 1.8 L Baso % (Auto) 0.7 Neut # (Auto) 3700 Lymph # (Auto) 600 L [place] # (Auto) 500 Eos # (Auto) 100 Baso # (Auto) 0 PT 16.7 H INR 1.5 H APTT 34 Sodium 133 L Potassium 3.4 Chloride 98 Carbon Dioxide 29 BUN 7 L Creatinine 0.49 L Estimated GFR > 60.0 BUN/Creatinine Ratio 14.3 Glucose 80 Calcium 8.4 Magnesium Total Bilirubin 10.4 H AST 230 H ALT 94 H Alkaline Phosphatase 247 H Ammonia Total Protein 7.8 Albumin 3.1 L Globulin 4.7 H Albumin/Globulin Ratio 0.7 L Lipase 342 H Ur Bilirubin Confirm Urine RBC Urine WBC Ur Squamous Epith Cells Amorphous Sediment Urine Bacteria Urine Mucus Ur Culture Indicated? Ethyl Alcohol SARS-CoV-2 (PCR) 03/06/21 03/06/21 03/06/21 18:45 18:45 18:55 WBC RBC Hgb Hct MCV MCH MCHC RDW Plt Count Neut % (Auto) Lymph % (Auto) [place] % (Auto) Eos % (Auto) Baso % (Auto) Neut # (Auto) Lymph # (Auto) [place] # (Auto) Eos # (Auto) Baso # (Auto) PT INR APTT Sodium Potassium Chloride Carbon Dioxide BUN Creatinine Estimated GFR BUN/Creatinine Ratio Glucose Calcium Magnesium 1.5 L Total Bilirubin AST ALT Alkaline Phosphatase Ammonia 118 H Total Protein Albumin Globulin Albumin/Globulin Ratio Lipase Ur Bilirubin Confirm Urine RBC Urine WBC Ur Squamous Epith Cells Amorphous Sediment Urine Bacteria Urine Mucus Ur Culture Indicated? Ethyl Alcohol 49 H SARS-CoV-2 (PCR) 03/06/21 03/06/21 19:26 19:34 WBC RBC Hgb Hct MCV MCH MCHC RDW Plt Count Neut % (Auto) Lymph % (Auto) [place] % (Auto) Eos % (Auto) Baso % (Auto) Neut # (Auto) Lymph # (Auto) [place] # (Auto) Eos # (Auto) Baso # (Auto) PT INR APTT Sodium Potassium Chloride Carbon Dioxide BUN Creatinine Estimated GFR BUN/Creatinine Ratio Glucose Calcium Magnesium Total Bilirubin AST ALT Alkaline Phosphatase Ammonia Total Protein Albumin Globulin Albumin/Globulin Ratio Lipase Ur Bilirubin Confirm Positive H Urine RBC 5-10/hpf H Urine WBC 0-1/hpf Ur Squamous Epith Cells 0-1 /hpf Amorphous Sediment 1+ Urine Bacteria Occasional (0-1) Urine Mucus 1+ H Ur Culture Indicated? Cult not indicated Ethyl Alcohol SARS-CoV-2 (PCR) Negative Assessment & Plan Assessment & Plan narrative: Mr. Jarrett is a 50M with PMH EtOH cirrhosis who presents with abdominal pain and confusion. 1. Alcoholic hepatitis, acute -likely the etiology of abdominal pain -has mild transaminitis, with markedly elevated bilirubin at 10.6 -calculated DF is ~28, not indicated for steroids currently -encouraged patient to abstain from EtOH -ordered for pain meds with tylenol (max 2gm daily), oxycodone will try to limit due to encephalopathy -trend LFTs, PT daily 2. Acute hepatic encephalopathy -likely due to non-adherence to medications -no evidence of infection currently, but UA pending -ordered for lactulose q6hr -encouraged patient to titrate lactulose to 2 BMs daily 3. EtOH cirrhosis decompensated with mild ascites and history of esophageal variceal bleed -has mild ascites, doubt enough to do para, but reconsider if needed in AM -if possible could get para to rule out SBP, but otherwise no infectious symptoms -continue with nadolol for history of variceal bleed -will need to establish with GI, and will need EGD to evaluate varices 4. Thrombocytopenia, chronic -secondary to cirrhosis -no need for transfusion 5. Hypomagnesemia -likely secondary to EtOH -ordered mag rider 6. EtOH abuse -patient denied recent drinking -EtOH level 49 -encouraged abstinence -CIWA ordered for now -MVI, thiamine, folate ordered 7. Anemia, chronic -mild, secondary to cirhosis, no need for transfusion CODE: Full Proxy: Marybeth Jarrett, I have utilized all available immediate resources to obtain, update, or review the patient's current medications. Time Spent With Patient Critical Care time: I spent a total of [] minutes of critical care time on this patient's care today; this time is exclusive of procedural time. Quality MIPS - Admit I confirm the patient?s Advance Care Plan is present, Code status is documented, Surrogate decision maker is in patient?s record [If Yes, STOP here]: Yes
[2021-03-07] VITALS (9 sets, daily range): BP systolic 132–142; BP diastolic 77–88; PULSE 92–116; RESP 16–18; TEMP 36.7–37; O2SAT 91–95; BMI 27.7
[2021-03-07] MEDS: MAGNESIUM SULFATE 2 GM/50 ML PIGGYBACK IV (00:03)
[2021-03-07] MEDS: LACTULOSE 20 GM/30 ML SOLUTION 30 GM PO ×4 (00:40→17:57)
[2021-03-07] MEDS: OXYCODONE IR 5 MG TABLET PO ×5 (02:06→20:56)
--- NOTE | 2021-03-07 03:00 | PC.ADMIT ---
[email or web address] Admission Note: Patient arrived to the unit via wheelchair at 2335 from the ED. Patient was A/O, on RA with his accompanying him. Patient rated his abdominal pain 7/10 and right calf pain 8/10/. 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 Patient was given scheduled medications. Call light and personal belongings were left within reach. No other requests at this time. The patient,Balta Jarrett,50 y/o, was given written information regarding hospital policies, unit procedures and contact persons. Patient's smoking status: Former smoker. Vital Signs - 8 hr 03/06/21 19:30 03/06/21 19:48 03/06/21 20:00 Temperature Pulse Rate 94 H 92 H 90 Respiratory Rate 18 15 Blood Pressure 139/73 138/72 Pulse Oximetry 95 94 92 03/06/21 20:30 03/06/21 21:00 03/06/21 21:27 Temperature Pulse Rate 96 H 95 H 95 H Respiratory Rate 15 13 Blood Pressure 139/73 141/76 H 140/67 Pulse Oximetry 94 94 92 03/06/21 21:30 03/06/21 22:00 03/06/21 23:00 Temperature Pulse Rate 94 H 97 H 98 H Respiratory Rate 18 Blood Pressure 137/66 126/66 124/79 Pulse Oximetry 94 91 94 03/06/21 23:35 Temperature 97.9 F Pulse Rate 91 H Respiratory Rate 18 Blood Pressure 148/88 H Pulse Oximetry 95
--- NOTE | 2021-03-07 05:23 | PC.NURSE ---
Patient was complaining of abdominal pain rated 10/10 at 0140, provider Dr. Myles was notified and verbal orders were given for 5 mg Oxy PO q6hrs PRN for pain was given. Medication order was reback and confirmed. At reassessment, patient stated that the Oxy had helped with the pain. At 0510 patient was complaining of increased abdominal pain again, rated 9/10. This RN provided a warm blanket and discussed repositioning. Patient stated that repositioning makes the pain worse and he was most comfortable on his back. Provider Dr. Vargas was notified and telephone orders for a one time dose of 5 mg Oxy PO was given and the PRN 5 mg Oxy could change to q4hrs. Medication order reback and confirmed.
[2021-03-07 06:59] LABS: Add Manual Diff / Slide Review NO; Basophils Absolute Auto 100 /uL (0-100); Basophils Percent Auto 0.6 % (0-2); Eosinophils Absolute Auto 0 /uL (0-450); Eosinophils Percent Auto 0.4 % (2-4); Hematocrit 36.4 % (41-53); Hemoglobin 12.7 g/dL (13.5-17.5); Lymphocytes Absolute Auto 300 /uL (1100-4500); Lymphocytes Percent Auto 3.6 % (25-40); Mean Corpuscular HGB Conc 34.9 % (30-36); Mean Corpuscular Hemoglobin 36.9 PG (26-34); Mean Corpuscular Volume 105.6 fL (80-100); Monocytes Absolute Auto 500 /uL (0-900); Monocytes Percent Auto 5.2 % (3-14); Neutrophils Absolute Auto 8100 /uL (1500-7000); Neutrophils Percent Auto 90.2 % (50-75); Platelet Count 50 X10^3/uL (150-400); Red Blood Cell Count 3.44 X10^6/uL (4.5-5.9); Red Cell Distribution Width 15.8 % (11.6-14.8)
[2021-03-07 07:10] LABS: INR 1.6 (0.9-1.3); Prothrombin Time 18.7 SECONDS (10.1-12.7)
[2021-03-07 07:36] LABS: BUN Creatinine Ratio 11.6 (6-22); Blood Urea Nitrogen 5 mg/dL (9-20); Calcium 8.3 mg/dL (8.4-10.2); Carbon Dioxide 28 mmol/L (22-32); Chloride 98 mmol/L (98-107); Estimated Glomerular Filt Rate > 60.0 mL/min (>60); Glucose 109 mg/dL (70-100); HEMOLYSIS 17 (0-50); Magnesium 1.8 mg/dL (1.6-2.3); Potassium 3.3 mmol/L (3.4-5.1); Sodium 132 mmol/L (137-145)
[2021-03-07 07:39] LABS: Alanine Aminotransferase 81 IU/L (<50); Albumin Globulin Ratio 0.7 (1.0-2.8); Alkaline Phosphatase 227 U/L (38-126); Aspartate Aminotransferase 202 IU/L (17-59); Bilirubin Conjugated 2.5 md/dL (0.0-0.3); Bilirubin Total 10.4 mg/dL (0.2-1.3); Bilirubin Unconjugated 3.5 mg/dL (0.0-1.1); Globulin 4.2 g/dL (1.7-4.1); HEMOLYSIS < 15 (0-50); Total Protein 7.2 g/dL (6.3-8.2)
[2021-03-07] MEDS: THIAMINE 100 MG TABLET PO (08:59)
[2021-03-07] MEDS: MULTIVITAMIN 1 TABLET 1 TAB PO (08:59)
[2021-03-07] MEDS: FOLIC ACID 1 MG TABLET PO (08:59)
[2021-03-07] MEDS: ONDANSETRON 4 MG/2 ML INJ IV (09:03)
[2021-03-07] MEDS: PANTOPRAZOLE DR 40 MG TABLET PO (09:07)
[2021-03-07] MEDS: LIDOCAINE 1% 20 ML 3 ML SUBCUT (11:23)
--- NOTE | 2021-03-07 11:29 | P.PCN_ITS ---
Procedures Date/Time Date of procedure: 03/07/21 Time of procedure: 11:29 Paracentesis Time out performed: Yes Indication: possible spontaneous bacterial peritonitis Procedure: diagnostic paracentesis Location: RLQ Local anesthetic used: lidocaine 2% (4 cc) Amount of anesthesia used (ml): 4 Bedside ultrasound used: yes, Ascites confirmed and location marked Preparation: sterile prep and drape Amount of fluid obtained (ml): 55 Fluid: cloudy Size of needle used: 18 Post procedure exam: awake, alert Patient tolerated procedure: well Complications: none Additional comments: Diagnostic paracentesis performed for rule out SBP, also never had paracentesis for known cirrhosis with ascites. Prior to the procedure formal consent was obtained from the patient after discussion of risks and benefits of the procedure, and allowing the patient to ask any questions. Ultrasound was used to find a suitable pocket, and the site was marked. A time- out was performed. The site was then prepped and draped in usual sterile fashion, and a 18 gauge needle was inserted with return of cloudy anny-yellow fluid. A total of approximately 55 mL was obtained before drainage stopped for diagnostic purposes. There was no bleeding and the patient tolerated the procedure well. There were no further complications. Fluid was sent to the lab for cell count, culture, albumin, protein, and glucose.
--- NOTE | 2021-03-07 11:40 | P.PN_ITS ---
Subjective Subjective Date Patient Seen: 03/07/21 Time Patient Seen: 11:40 Interval history: reports slight improvement in confusion today, though definitely not normal, reports lower abdominal pain. paracentesis performed for possible SBP, results pending. Now having bowel movements with lactulose. Exam Vital Signs (past 8 hours): - 03/07/21 04:30 03/07/21 08:00 03/07/21 08:50 Temperature 98.6 F 98.4 F Pulse Rate 104 H 116 H Respiratory Rate 16 18 Blood Pressure 141/83 H 133/79 Pulse Oximetry 95 95 03/07/21 08:59 Temperature Pulse Rate Respiratory Rate Blood Pressure 133/79 Pulse Oximetry Oxygen Delivery Method Room Air Oxygen Flow Rate 0 Narrative Exam Narrative: GEN: no acute distress, chronically ill appearing HEENT: +jaundiced conjunctiva, moist mucous membranes NECK: trachea midline, no JVD CV: regular rate and rhyhtm, 2/6 systolic ejection murmur PULM: clear bilaterally, no wheezes, rhonchi, rales ABD: soft, mildly tender, mildly distended, no rebound/guarding, normal bowel sounds EXT: warm and well perfused, trace edema bilaterally NEURO: awake and alert, but slow/confused, +asterixis PSYCH: calm, pleasant Objective Labs Result Diagrams: 03/07/21 06:47 03/07/21 06:47 Labs: Laboratory Results - last 24 hr 03/06/21 03/06/21 03/06/21 18:45 18:45 18:45 WBC 4.9 RBC 3.52 L Hgb 12.9 L Hct 37.2 L MCV 105.8 H MCH 36.7 H MCHC 34.7 RDW 16.1 H Plt Count 74 L Neut % (Auto) 74.9 Lymph % (Auto) 12.7 L [place] % (Auto) 9.9 Eos % (Auto) 1.8 L Baso % (Auto) 0.7 Neut # (Auto) 3700 Lymph # (Auto) 600 L [place] # (Auto) 500 Eos # (Auto) 100 Baso # (Auto) 0 PT 16.7 H INR 1.5 H APTT 34 Sodium 133 L Potassium 3.4 Chloride 98 Carbon Dioxide 29 BUN 7 L Creatinine 0.49 L Estimated GFR > 60.0 BUN/Creatinine Ratio 14.3 Glucose 80 Calcium 8.4 Magnesium Total Bilirubin 10.4 H Conjugated Bilirubin Unconjugated Bilirubin AST 230 H ALT 94 H Alkaline Phosphatase 247 H Ammonia Total Protein 7.8 Albumin 3.1 L Globulin 4.7 H Albumin/Globulin Ratio 0.7 L Lipase 342 H Ur Bilirubin Confirm Urine RBC Urine WBC Ur Squamous Epith Cells Amorphous Sediment Urine Bacteria Urine Mucus Ur Culture Indicated? Ethyl Alcohol SARS-CoV-2 (PCR) 03/06/21 03/06/21 03/06/21 18:45 18:45 18:55 WBC RBC Hgb Hct MCV MCH MCHC RDW Plt Count Neut % (Auto) Lymph % (Auto) [place] % (Auto) Eos % (Auto) Baso % (Auto) Neut # (Auto) Lymph # (Auto) [place] # (Auto) Eos # (Auto) Baso # (Auto) PT INR APTT Sodium Potassium Chloride Carbon Dioxide BUN Creatinine Estimated GFR BUN/Creatinine Ratio Glucose Calcium Magnesium 1.5 L Total Bilirubin Conjugated Bilirubin Unconjugated Bilirubin AST ALT Alkaline Phosphatase Ammonia 118 H Total Protein Albumin Globulin Albumin/Globulin Ratio Lipase Ur Bilirubin Confirm Urine RBC Urine WBC Ur Squamous Epith Cells Amorphous Sediment Urine Bacteria Urine Mucus Ur Culture Indicated? Ethyl Alcohol 49 H SARS-CoV-2 (PCR) 03/06/21 03/06/21 03/07/21 19:26 19:34 06:47 WBC RBC Hgb Hct MCV MCH MCHC RDW Plt Count Neut % (Auto) Lymph % (Auto) [place] % (Auto) Eos % (Auto) Baso % (Auto) Neut # (Auto) Lymph # (Auto) [place] # (Auto) Eos # (Auto) Baso # (Auto) PT INR APTT Sodium Potassium Chloride Carbon Dioxide BUN Creatinine Estimated GFR BUN/Creatinine Ratio Glucose Calcium Magnesium Total Bilirubin 10.4 H Conjugated Bilirubin 2.5 H Unconjugated Bilirubin 3.5 H AST 202 H ALT 81 H Alkaline Phosphatase 227 H Ammonia Total Protein 7.2 Albumin 3.0 L Globulin 4.2 H Albumin/Globulin Ratio 0.7 L Lipase Ur Bilirubin Confirm Positive H Urine RBC 5-10/hpf H Urine WBC 0-1/hpf Ur Squamous Epith Cells 0-1 /hpf Amorphous Sediment 1+ Urine Bacteria Occasional (0-1) Urine Mucus 1+ H Ur Culture Indicated? Cult not indicated Ethyl Alcohol SARS-CoV-2 (PCR) Negative 03/07/21 03/07/21 03/07/21 06:47 06:47 06:47 WBC 9.0 D RBC 3.44 L Hgb 12.7 L Hct 36.4 L MCV 105.6 H MCH 36.9 H MCHC 34.9 RDW 15.8 H Plt Count 50 L Neut % (Auto) 90.2 H Lymph % (Auto) 3.6 L [place] % (Auto) 5.2 Eos % (Auto) 0.4 L Baso % (Auto) 0.6 Neut # (Auto) 8100 H Lymph # (Auto) 300 L [place] # (Auto) 500 Eos # (Auto) 0 Baso # (Auto) 100 PT 18.7 H INR 1.6 H APTT Sodium 132 L Potassium 3.3 L Chloride 98 Carbon Dioxide 28 BUN 5 L Creatinine 0.43 L Estimated GFR > 60.0 BUN/Creatinine Ratio 11.6 Glucose 109 H Calcium 8.3 L Magnesium 1.8 Total Bilirubin Conjugated Bilirubin Unconjugated Bilirubin AST ALT Alkaline Phosphatase Ammonia Total Protein Albumin Globulin Albumin/Globulin Ratio Lipase Ur Bilirubin Confirm Urine RBC Urine WBC Ur Squamous Epith Cells Amorphous Sediment Urine Bacteria Urine Mucus Ur Culture Indicated? Ethyl Alcohol SARS-CoV-2 (PCR) [facility] Medical History Acute upper gastrointestinal bleeding Alcoholic cirrhosis of liver Allergies (~1981) Anxiety Cholelithiasis Cirrhosis Constipation Elevated alkaline phosphatase level Esophageal varices Hallucinations, visual Hepatitis A Hyperlipidemia, mixed Hypertension Insomnia Rash and nonspecific skin eruption Spontaneous ecchymosis Thrombocytopenia Transaminitis Uncontrolled daytime somnolence Surgical History Derangement of left patella (~2008) Family History Father Hypertension Grandfather Alcoholic Social History marital status: household members: spouse pets and animals: Yes education level: high school occupational status: unemployed 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 priscilla/confucianism: Rastafari leisure activities: other other: Boating/Fishing seatbelt use: always helmet use: Yes water heater temp set < 120 deg: Yes working smoke detector in home: Yes fire extinguisher in home: Yes carbon monox detector in home: Yes firearms in home: No do you feel safe at home: Yes Smoking Status: Former smoker alcohol intake: current substance use type: does not use during the past year weight has: other well-balanced diet: about half the time daily servings fruits/ve-4 caffeine: Yes (Rare/Never drink soda) eating out: rarely or never Type(s) of exercise: walking frequency: 1-2 times per week duration: 30-45 minutes/day additional social history: Recently quit taking alcohol, Light smoker in , Stationary bike. Assessment & Plan Assessment & Plan narrative: Mr. Jarrett is a 50M with PMH EtOH cirrhosis who presents with abdominal pain and confusion. 1. Alcoholic hepatitis, acute -calculated DF is ~44 (INR 1.6 and Tbili 10.4), indicated for steroids but will first assess if there is SBP. -encouraged patient to abstain from EtOH -ordered for pain meds with tylenol (max 2gm daily), oxycodone will try to limit due to encephalopathy -trend LFTs, PT daily 2. Acute hepatic encephalopathy -likely due to non-adherence to medications -no evidence of infection currently, but UA pending -ordered for lactulose q6hr. improving today. -encouraged patient to titrate lactulose to 2 BMs daily 3. EtOH cirrhosis decompensated with mild ascites and history of esophageal variceal bleed -dx paracentesis performed today, follow up results. Start antibiotics if appears infected. -continue with nadolol for history of variceal bleed -will need to establish with GI, and will need EGD to evaluate varices as outpatient. 4. Thrombocytopenia, chronic -secondary to cirrhosis -no need for transfusion 5. Hypomagnesemia -likely secondary to EtOH 6. EtOH abuse -patient denied recent drinking -EtOH level 49 -encouraged abstinence -CIWA ordered for now -MVI, thiamine, folate ordered 7. Anemia, chronic -mild, secondary to cirhosis, no need for transfusion CODE: Full Proxy: Marybeth Jarrett, I have utilized all available immediate resources to obtain, update, or review the patient's current medications. Time Spent With Patient Critical Care time: I spent a total of [] minutes of critical care time on this patient's care today; this time is exclusive of procedural time.
[2021-03-07 13:10] LABS: Albumin Body Fluid < 1.0 g/dL; Glucose Body Fluid 112 mg/dL; Total Protein Body Fluid < 2.0 g/dL
[2021-03-07 13:11] LABS: Body Fluid Red Blood Cells 2314 /uL; Body Fluid Tot Nucleated Cells 279 /uL
[2021-03-07 13:35] LABS: Body Fluid Appearance SLIGHTLY CLOUDY; Body Fluid Clotted? NO CLOTS PRESENT; Body Fluid Color YELLOW; Eosinophils Body Fluid 2 %; Mononuclear WBC Body Fluid 40 %; Polynuclear WBC Body Fluid 56 %
[2021-03-07 13:36] LABS: Other Cells Body Fluid 2 %
--- NOTE | 2021-03-07 13:39 | CM.DANOTE ---
Patient is a 50 yo male who was admitted on 03/06/21 for Abd Pain, Swollen ankles. Pt has COMM INSURANCE and PCP is Dr. Gama Loza. EMR was reviewed. Per , pt with hx of ETOH cirrhosis and recently dx with Hep A and admitted for ETOH hepatitis and confusion. SW met bedside briefly with pt and spouse and explained role and pt seemed somewhat confused but TOPPER PRESS OPERATOR AUTOMATIC was just getting him into the shower. SW met with spouse and she confirms that pt is somewhat confused/having a hard time understanding and grasping medical concepts right now which is not his baseline. Pt was able to ambulate in room to shower without assist and does not use DME at baseline. Spouse is very hopeful that pt will improve rapidly as she has a work conference out of town in a week although they have close neighbors and friends who could check on pt and assist if needed but no local family and spouse states that pt is quite embarrassed and would not be very comfortable with friends knowing he was medically not feeling well. Spouse is available for assist though at d/c for the next week. Spouse does not anticipate any SW need or PT and confirms that pt has not been drinking for a few months. Per MD, pt may need a paracentesis today with ultrasound and not stable for d/c today and will need GI follow up after discharge. Plan: SW to follow closely to confirm safe plan of d/c home with spouse and any further identified discharge needs. REVA [place] Discharge Planning/Care Management Advanced directive, confirm from FAMILY Start: 03/07/21 00:36 Freq: Q24H Status: Active Protocol: Document 03/07/21 00:36 TAMAR (Rec: 03/07/21 01:41 TAMAR [id number]) Advance Directive, confirm on record Time 00:00 Person contacted patient Copy received No CM Discharge Assessment Start: 03/07/21 13:37 Freq: Status: Active Protocol: Document 03/07/21 13:38 BF (Rec: 03/07/21 13:39 BF [id number]) Discharge Planning Assessment Assigned Skein Washer REVA Cummings DPOA/Assigned Designee Name spouse informally Marybeth Contact Information [phone] Advance Directives? Yes Advance Directives on File No History Provided By Patient,Significant Other, Medical Record Has Patient been admitted in last 30 No days? Prior Living Arrangements House Household Members spouse Type of transporation used prior to Drives own vehicle admit Independent with ADL's Yes Is patient alert and oriented? Yes Caregiver for Another No Barriers to Discharge No Discharge Plan Home Transportation Arrangement Spouse confirms that she can transport at d/c Referrals Initiated None needed Whiteboard Updated in Patient Room with Yes name and ext. # of Skein Washer Review Status In Process Please Provide Date Initial DC 03/07/21 Assessment Was Performed Next Review Type Continued Stay Review
[2021-03-07] MEDS: prednisoLONE Syrup 15 MG/5 ML 40 MG PO (16:38)
[2021-03-08 00:20] VITALS: BP 138/82; PULSE 100; RESP 16; TEMP 36.9; O2SAT 94
[2021-03-08 00:30] VITALS: O2SAT 94
--- NOTE | 2021-03-08 01:03 | PC.NURSE ---
Addendum entered by Debby Ruiz R.N. 03/08/21 06:58: No blood with next BM. Patient refused 0600 dose of Lactulose. Will notify oncoming RN. Original Note: Patient declined 0000 dose of Lactulose at 0036. Patient stated that abdomen hurts too bad and he could not take the dose at this time. Patient stated he is still having BM's and will try next dose. Patient also stated he had red blood in his stool but had flushed the stool so this RN was not able to see it. Patient was educated and not flushing so that the CLOTH HANDLER and/gasoline engine inspector can see the characteristics of the stool and urine and importance of measuring I&O's. The CLOTH HANDLER replaced the hat for accurate measurement and characteristics. Will check next BM and contact provider as indicated. No other requests at this time.
[2021-03-08 05:30] VITALS: BP 137/80; PULSE 97; RESP 16; TEMP 36.5; O2SAT 93
[2021-03-08] MEDS: PANTOPRAZOLE DR 40 MG TABLET PO (06:14)
[2021-03-08 06:16] LABS: Alanine Aminotransferase 76 IU/L (<50); Albumin 3.1 g/dL (3.5-5.0); Albumin Globulin Ratio 0.7 (1.0-2.8); Alkaline Phosphatase 212 U/L (38-126); Aspartate Aminotransferase 167 IU/L (17-59); Bilirubin Total 10.6 mg/dL (0.2-1.3); Bilirubin Unconjugated 4.1 mg/dL (0.0-1.1); Blood Urea Nitrogen 5 mg/dL (9-20); Carbon Dioxide 37 mmol/L (22-32); Chloride 96 mmol/L (98-107); Estimated Glomerular Filt Rate > 60.0 mL/min (>60); Globulin 4.6 g/dL (1.7-4.1); Glucose 141 mg/dL (70-100); HEMOLYSIS < 15 (0-50); Potassium 3.9 mmol/L (3.4-5.1); Sodium 133 mmol/L (137-145); Total Protein 7.7 g/dL (6.3-8.2)
[2021-03-08 06:19] LABS: Add Manual Diff / Slide Review NO; Basophils Absolute Auto 100 /uL (0-100); Basophils Percent Auto 0.5 % (0-2); Eosinophils Absolute Auto 0 /uL (0-450); Hematocrit 38.5 % (41-53); Hemoglobin 13.1 g/dL (13.5-17.5); Lymphocytes Absolute Auto 400 /uL (1100-4500); Lymphocytes Percent Auto 3.1 % (25-40); Mean Corpuscular HGB Conc 34.1 % (30-36); Mean Corpuscular Hemoglobin 36.9 PG (26-34); Monocytes Absolute Auto 400 /uL (0-900); Monocytes Percent Auto 3.9 % (3-14); Neutrophils Absolute Auto 10500 /uL (1500-7000); Neutrophils Percent Auto 92.5 % (50-75); Platelet Count 50 X10^3/uL (150-400); Red Blood Cell Count 3.56 X10^6/uL (4.5-5.9); White Blood Cell Count 11.3 X10^3/uL (4.5-11.0)
[2021-03-08 07:57] VITALS: BP 138/80; PULSE 99; RESP 16; TEMP 36.7; O2SAT 92
[2021-03-08 08:47] VITALS: O2SAT 92
[2021-03-08] MEDS: FOLIC ACID 1 MG TABLET PO (09:18)
[2021-03-08] MEDS: MULTIVITAMIN 1 TABLET 1 TAB PO (09:18)
[2021-03-08] MEDS: THIAMINE 100 MG TABLET PO (09:18)
[2021-03-08] MEDS: FUROSEMIDE 20 MG TABLET PO (09:18)
[2021-03-08] MEDS: OXYCODONE IR 5 MG TABLET PO (09:19)
[2021-03-08] MEDS: SPIRONOLACTONE 25 MG TABLET 50 MG PO (09:19)
[2021-03-08] MEDS: prednisoLONE Syrup 15 MG/5 ML 40 MG PO (09:20)
--- NOTE | 2021-03-08 10:01 | PM.DS.1 ---
History of Present Illness History of Present Illness Date Patient Seen: 03/08/21 Time Patient Seen: 09:40 Chief complaint: abdominal x2 days swollen ankles Narrative: Per Dr. Myles, Mr. Jarrett is a 50M with PMH EtOH cirrhosis complicated by hepatic encephalopathy, previous esophageal variceal bleed s/p banding, chronic thrombocytopenia who presents with abdominal pain, swelling, and confusion. Patient has a long known history of cirrhosis. However he has not followed up very closely for this. Per the patient his last drink of alcohol was a couple months ago. He has stopped taking lactulose because of side effects. He is not currently established with a breast trimmer. He had esophageal variceal bleeding approximately two years ago, he had follow up with EGD very soon after that, but he lost his health insurance, and has not had an EGD since. More recently he stopped taking lactulose, he has developed difficulty sleeping, and confusion. He has felt cold, but not fevers nor shaking chills. He has noticed that his abdomen has been distended for a few days and has not developed some pain in his right upper abdomen. He has not noticed hematemesis, hematochezia or black stools. He has noted a 20lb weight loss. He also stated he was diagnosed with hepatitis A, one month ago. In the ED workup was done he was found to be mildly tachycardic. Hgb 12.9, plts 74, INR 1.5, Na 133, creatinine 0.49, bili 10.4, ast? 230, alt 94, alk phos 247, lipase 342, ammonia 118, mag 1.5, EtOH 49. He did get an abdominal ultrasound which showed no acute process but did show small to moderate ascites. CT abdomen showed no acute process but did show small amount of ascites. He was given lactulose and admitted for further treatment. Discharge Providers Provider Date of admission: 03/06/21 22:36 Discharge Date: 03/08/21 Primary care physician: Dago Malloy DO Consults: 03/06/21 23:29 Consult to Dietitian, Adult Routine Comment: Reason For Exam: weight loss Discharge provider: Costa Deluca DO Summary Hospital Course Discharge Diagnosis: 1. Alcoholic hepatitis, acute 2. Acute hepatic encephalopathy 3. EtOH cirrhosis decompensated with mild ascites and history of esophageal variceal bleed 4. Thrombocytopenia, chronic 5. Hypomagnesemia 6. EtOH abuse 7. Anemia, chronic Hospital Course: Mr. Jarrett is a 50M with PMH EtOH cirrhosis who presented with abdominal pain and confusion. He was admitted with alcoholic hepatitis and hepatic encephalopathy due to underlying cirrhosis as well. His discriminant function on admission was approximately 44, diagnostic paracentesis was performed which was negative for SBP by cell count. Fluid analysis was consistent with cirrhosis. Once negative for SBP, he was started on prednisolone for alcoholic hepatitis. For his alcoholic hepatitis, he should continue on prednisolone for at least 1 week, with repeat laboratory evaluation ordered, if discriminant function is improved he should continue for 4 weeks total therapy followed by a prednisolone taper. For his hepatic encephalopathy and decompensated cirrhosis, the patient was started on lactulose with quick improvement of his encephalopathy. On the day of discharge he had returned back to his baseline self. Given his ascites he was also started on low-dose furosemide and spironolactone. I recommend outpatient referral to hepatology, he was counseled on alcohol cessation. Time Spent with Patient Time spent: Greater than 30 minutes Exam Vital Signs (past 8 hours): - 03/08/21 05:30 03/08/21 07:57 03/08/21 08:47 Temperature 97.7 F 98.1 F Pulse Rate 97 H 99 H Respiratory Rate 16 16 Blood Pressure 137/80 138/80 Pulse Oximetry 93 92 92 Oxygen Delivery Method Room Air Oxygen Flow Rate 0 Narrative Exam Narrative: ?GEN: no acute distress, chronically ill appearing HEENT: +jaundiced conjunctiva, moist mucous membranes NECK: trachea midline, no JVD CV: regular rate and rhyhtm, 2/6 systolic ejection murmur PULM: clear bilaterally, no wheezes, rhonchi, rales ABD: soft, mildly tender, mildly distended, no rebound/guarding, normal bowel sounds EXT: warm and well perfused, trace edema bilaterally NEURO: awake and alert, but slow/confused, +asterixis PSYCH: calm, pleasant Objective Labs Result Diagrams: 03/08/21 05:47 03/08/21 05:47 Labs: Laboratory Results - last 24 hr 03/07/21 03/07/21 03/07/21 11:28 11:28 11:28 WBC RBC Hgb Hct MCV MCH MCHC RDW Plt Count Neut % (Auto) Lymph % (Auto) [place] % (Auto) Eos % (Auto) Baso % (Auto) Neut # (Auto) Lymph # (Auto) [place] # (Auto) Eos # (Auto) Baso # (Auto) Sodium Potassium Chloride Carbon Dioxide BUN Creatinine Estimated GFR BUN/Creatinine Ratio Glucose Calcium Total Bilirubin Conjugated Bilirubin Unconjugated Bilirubin AST ALT Alkaline Phosphatase Total Protein Albumin Globulin Albumin/Globulin Ratio Fluid Color Yellow Fluid Appearance Slightly cloudy Fluid RBC 2314 Fld Tot Nucleated Cell 279 Fluid Polynuclear WBCs 56 Fluid Mononuclear WBCs 40 Fluid Eosinophils 2 Fluid Other Cells 2 Body Fluid Clot No clots present Fluid Glucose 112 Fluid Total Protein < 2.0 Fluid Albumin < 1.0 03/08/21 03/08/21 05:47 05:47 WBC 11.3 H RBC 3.56 L Hgb 13.1 L Hct 38.5 L MCV 108.0 H MCH 36.9 H MCHC 34.1 RDW 16.0 H Plt Count 50 L Neut % (Auto) 92.5 H Lymph % (Auto) 3.1 L [place] % (Auto) 3.9 Eos % (Auto) 0.0 L Baso % (Auto) 0.5 Neut # (Auto) 84847 H Lymph # (Auto) 400 L [place] # (Auto) 400 Eos # (Auto) 0 Baso # (Auto) 100 Sodium 133 L Potassium 3.9 Chloride 96 L Carbon Dioxide 37 H BUN 5 L Creatinine 0.50 L Estimated GFR > 60.0 BUN/Creatinine Ratio 10.0 Glucose 141 H Calcium 9.0 Total Bilirubin 10.6 H Conjugated Bilirubin 2.0 H Unconjugated Bilirubin 4.1 H AST 167 H ALT 76 H Alkaline Phosphatase 212 H Total Protein 7.7 Albumin 3.1 L Globulin 4.6 H Albumin/Globulin Ratio 0.7 L Fluid Color Fluid Appearance Fluid RBC Fld Tot Nucleated Cell Fluid Polynuclear WBCs Fluid Mononuclear WBCs Fluid Eosinophils Fluid Other Cells Body Fluid Clot Fluid Glucose Fluid Total Protein Fluid Albumin PFSH Medical History Acute upper gastrointestinal bleeding Alcoholic cirrhosis of liver Allergies (~1981) Anxiety Cholelithiasis Cirrhosis Constipation Elevated alkaline phosphatase level Esophageal varices Hallucinations, visual Hepatitis A Hyperlipidemia, mixed Hypertension Insomnia Rash and nonspecific skin eruption Spontaneous ecchymosis Thrombocytopenia Transaminitis Uncontrolled daytime somnolence Surgical History Derangement of left patella (~2008) Family History Father Hypertension Grandfather Alcoholic Social History marital status: household members: spouse pets and animals: Yes education level: high school occupational status: unemployed 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 priscilla/voodoo: Islam leisure activities: other other: Boating/Fishing seatbelt use: always helmet use: Yes water heater temp set < 120 deg: Yes working smoke detector in home: Yes fire extinguisher in home: Yes carbon monox detector in home: Yes firearms in home: No do you feel safe at home: Yes Smoking Status: Former smoker alcohol intake: current substance use type: does not use during the past year weight has: other well-balanced diet: about half the time daily servings fruits/ve-4 caffeine: Yes (Rare/Never drink soda) eating out: rarely or never Type(s) of exercise: walking frequency: 1-2 times per week duration: 30-45 minutes/day additional social history: Recently quit taking alcohol, Light smoker in , Stationary bike. Discharge Plan Discharge Plan Patient Disposition: Home Provider Discharge Comment: You were admitted to the hospital with alcoholic hepatitis. You also had some fluid removed from your abdomen to rule out infection. Fluid was consistent with cirrhosis. You were started on steroids for the severity of your alcoholic hepatitis, repeat labs recommended in 1 week (ordered) for repeat evaluation to see if steroids should be continued beyond 1 week. You were also started on diuretic medications to keep ascites fluid from accumulating. Please try and follow up with Dr. Mallyo next week ideally, 2 weeks at most. Discharge orders & Medications Prescriptions: New furosemide 20 mg Tablet 20 mg PO DAILY 30 Days Qty: 30 RF: 0 prednisolone 15 mg/5 mL Solution 40 mg PO DAILY 28 Days Qty: 480 RF: 0 spironolactone 25 mg Tablet 50 mg PO DAILY 30 Days Qty: 30 RF: 0 hydromorphone [Dilaudid] 2 mg tablet 2 mg PO Q6H PRN (Reason: pain) 7 Days Qty: 10 RF: 0 Continued ondansetron 4 mg tablet,disintegrating 4 mg translingual Q6H PRN (Reason: Nausea) Qty: 30 RF: 2 pantoprazole [Protonix] 40 mg tablet,delayed release (DR/EC) 40 mg PO BID Qty: 60 RF: 3 bupropion HCl 75 mg tablet See Rx Instructions .ROUTE .COMPLEX Qty: 60 RF: 0 trazodone 50 mg tablet 25 - 50 mg PO BEDTIME PRN (Reason: Insomnia) Qty: 30 RF: 5 nadolol 20 mg tablet 20 mg PO DAILY Qty: 90 RF: 1 lactulose 10 gram/15 mL solution 15 ml PO BID 30 Days Qty: 900 RF: 0 Discontinued tramadol 100 mg tablet 100 mg PO Q8H Qty: 90 RF: 0 Follow up/Referrals: Dago Malloy DO [Primary Care Provider] - Other Ambulatory Orders: Comprehensive Metabolic Panel (Stat) Timeframe: 5 Days Facility: [facility] - Location: Laboratory Ordered By: Costa Deluca Prothrombin Time INR (Routine) Timeframe: 5 Days Facility: [facility] - Location: Laboratory Ordered By: Costa Deluca Diet/Activity/Treatments Diet: Diet as Tolerated Activity: As tolerated Discharge Data Primary Care Provider: Dago Malloy
[2021-03-08 10:12] VITALS: O2SAT 92
--- NOTE | 2021-03-08 10:41 | CM.DPNOTE ---
DC Note Reviewed chart. Patient discussed in multidisciplinary rounds. Patient is medically cleared for return home w/supportive spouse, no needs from this HONEY PROCESSOR identified. JENNIFER
--- NOTE | 2021-03-08 11:58 | PC.NURSE ---
Day shift: Pt informed about Lactulose and it's medical uses. Given print-out on it as well. He did not want any of it today and said he would start taking it at home when he gets there later today. Tele d/c'd per Dr eDluca.
--- NOTE | 2021-03-08 15:00 | PC.NURSE ---
Day shift: Paperwork signed and all questions answered. Pt remains A&Ox4. Has all personal belongings. His spouse in room for d/c teachings. Encouraged to take all new meds as directed and to f/u w/ his PCP [facility]. scripts sent to Pts pharmacy electronic. AFtrer he showered today he said I'm feeling so much better now.
== END 2021-03-08 15:08 | disposition home or self-care (01) | DRG 432 ==
LOC: ED 21:33 → AC 23:14
PROVIDERS: Internal Medicine; Admitting Provider Internal Medicine; Emergency Provider Emergency Medicine; PCP Family Medicine; Referring Provider Emergency Medicine; Visit Provider Internal Medicine
DX: K70.11 Alcoholic hepatitis with ascites (principal); K72.00 Acute and subacute hepatic failure without coma; D69.59 Other secondary thrombocytopenia; E83.42 Hypomagnesemia; F10.11 Alcohol abuse, in remission; Y90.2 Blood alcohol level of 40-59 mg/100 ml; K70.31 Alcoholic cirrhosis of liver with ascites; I10 Essential (primary) hypertension; Z87.891 Personal history of nicotine dependence; Z20.822 Contact with and (suspected) exposure to COVID-19
CPT/HCPCS: 36415; 71275; 74174; 76705; 80048; 80053; 80076; 80320; 81003; 81015; 82042; 82140; 82945; 83690; 83735; 84157; 85025; 85610; 85730; 87070; 87075; 87086; 87205; 87635; 89051; 93005; 93010; 94760; 96361; 96374; 96375; 99285; C9803; J1170; J2405; J3475; Q9967

== ENCOUNTER → 2021-03-13 14:31 | Outpatient (CLI) | payer OTHER, SELFPAY ==
[2021-03-07] VITALS: BMI 27.7
[2021-03-13 15:08] LABS: Ammonia (NH3) 39 umol/L (9-30)
[2021-03-13 15:32] LABS: INR 2.1 (0.9-1.3); Prothrombin Time 24.2 SECONDS (10.1-12.7)
[2021-03-13 15:43] LABS: Alanine Aminotransferase 53 IU/L (<50); Albumin 3.2 g/dL (3.5-5.0); Albumin Globulin Ratio 0.7 (1.0-2.8); Alkaline Phosphatase 270 U/L (38-126); Aspartate Aminotransferase 68 IU/L (17-59); BUN Creatinine Ratio 17.3 (6-22); Bilirubin Total 9.8 mg/dL (0.2-1.3); Blood Urea Nitrogen 9 mg/dL (9-20); Calcium 8.8 mg/dL (8.4-10.2); Carbon Dioxide 34 mmol/L (22-32); Chloride 94 mmol/L (98-107); Estimated Glomerular Filt Rate > 60.0 mL/min (>60); Globulin 4.8 g/dL (1.7-4.1); Glucose 153 mg/dL (70-100); HEMOLYSIS < 15 (0-50); Potassium 3.1 mmol/L (3.4-5.1); Sodium 131 mmol/L (137-145)
== END ==
PROVIDERS: PCP Family Medicine; Referring Provider Family Medicine; Visit Provider Family Medicine
DX: B15.9 Hepatitis A without hepatic coma (principal); D69.6 Thrombocytopenia, unspecified; E80.6 Other disorders of bilirubin metabolism; K70.10 Alcoholic hepatitis without ascites; R17 Unspecified jaundice; R74.8 Abnormal levels of other serum enzymes; K74.60 Unspecified cirrhosis of liver
CPT/HCPCS: 36415; 80053; 82140; 85610

== ENCOUNTER 2021-11-22 23:36 | Emergency (ER) | payer OTHER, MEDICAID, SELFPAY ==
[2021-03-07] VITALS: BMI 27.7
--- NOTE | 2021-11-22 23:39 | ED.AMS ---
HPI - Altered Mental Status General Chief Complaint: Altered Mental Status Stated Complaint: ETOH Time Seen by Provider: 11/22/21 23:36 History of Present Illness HPI narrative: 50-year-old male former smoker with extensive alcohol history including prior withdrawals, esophageal varices, thrombocytopenia, jaundice presents by EMS for evaluation of altered mental status and multiple falls. The patient is a very poor historian and is rather nonspecific about his symptoms. Much of the story comes to us from through the medics from his . She has little interaction with him so there is not much in the way of specific information but called EMS because he was acting confused and complained of pain all over and has multiple large bruises on his back and side. On arrival EMS found his blood sugar to be in the 40s, he was given D10 EN route and had improvement into the 80s. He is activated as a modified trauma. He has previously had bleeding varices as mentioned as well as significant withdrawals, he states that his last drink was perhaps yesterday. He is tremulous and tachycardic. He had been part of the bloodless program at [facility] for his episode of varices many years ago. He is a Latter day Related Data Previous Rx's Medication Instructions Recorded trazodone 50 mg tablet 100 mg PO BEDTIME #60 tab 03/13/21 nadolol 20 mg tablet 20 mg PO DAILY #90 tab 03/31/21 potassium chloride 10 mEq 10 meq PO DAILY #90 tab 03/31/21 tablet,extended release furosemide 20 mg tablet 20 mg PO DAILY #90 tab 05/20/21 bupropion HCl 75 mg tablet See Rx Instructions .ROUTE 07/23/21 .COMPLEX #180 tab ondansetron 4 mg disintegrating 4 mg TRANSLINGUAL Q6H PRN #30 tab 10/01/21 tablet spironolactone 50 mg tablet 50 mg PO DAILY #90 tab 10/01/21 pantoprazole 40 mg tablet,delayed 40 mg PO BID #60 tab 11/09/21 release Allergies Allergy/AdvReac Type Severity Reaction Status Date / Time No Known Drug Allergies Allergy Verified 11/22/21 23:52 Review of Systems Review of Systems Narrative: GENERAL: See HPI HEENT: Denies sinus pain, ear pain, sore throat, difficulty swallowing, dizziness. RESPIRATORY: See HPI CARDIOVASCULAR: See HPI GASTROINTESTINAL: See HP a : Denies dysuria, frequency, incontinence, hematuria, urinary retention. MUSCULOSKELETAL: See HPI SKIN: Denies rash, skin lesions, or other NEUROLOGIC: Denies weakness, headache, numbness, change in speech, confusion, seizures, incoordination. PSYCHIATRIC: See HPI 12 point review of systems is negative except for those stated above Patient History Medical History Acute hepatic encephalopathy Acute upper gastrointestinal bleeding Alcoholic cirrhosis of liver Allergies (~1981) Anxiety Bilateral leg pain Bilateral lower extremity edema Cholelithiasis Cirrhosis Constipation Disability examination Elevated alkaline phosphatase level Esophageal varices Fatigue Hallucinations, visual Hepatitis A History of esophageal varices Hyperlipidemia, mixed Hypertension Hypokalemia Impaired cognition Insomnia Nocturnal leg cramps Rash and nonspecific skin eruption Spontaneous ecchymosis Thrombocytopenia Transaminitis Surgical History Derangement of left patella (~2008) Family History Father Hypertension Grandfather Alcoholic Social History marital status: household members: spouse pets and animals: Yes education level: high school occupational status: unemployed 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 priscilla/christian: Latter day leisure activities: other other: Boating/Fishing seatbelt use: always helmet use: Yes water heater temp set < 120 deg: Yes working smoke detector in home: Yes fire extinguisher in home: Yes carbon monox detector in home: Yes firearms in home: No do you feel safe at home: Yes Smoking Status: Former smoker alcohol intake: current substance use type: does not use during the past year weight has: other well-balanced diet: about half the time daily servings fruits/ve-4 caffeine: Yes (Rare/Never drink soda) eating out: rarely or never Type(s) of exercise: walking frequency: 1-2 times per week duration: 30-45 minutes/day additional social history: Recently quit taking alcohol, Light smoker in HS, Stationary bike. Smoking Status: Former smoker tobacco type: cigarettes alcohol intake frequency: 0-2 drinks per day Substance Use Type: does not use Exam Narrative Exam Narrative: GENERAL: [50] year old patient appears older than stated age. GCS 14 (slightly confused) HEAD:Mild contusion on occiput, no be evidence of laceration or abrasion, no suspicion of depressed skull fracture EYES: Pupils equal round and reactive. Extraocular motions intact. Scleral icterus is present, no evidence of hyphema No injection or drainage. ENT: Nose without bleeding, purulent drainage. No nasal septal hematoma Throat without erythema, tonsillar hypertrophy or exudate. Airway patent. NECK: Trachea midline. Non tender CARDIOVASCULAR: Tachycardic and regular rhythm without murmurs, gallops, or rubs. RESPIRATORY: Increased work of breathing, decreased lung sounds on the right, tenderness to right lateral ribs GASTROINTESTINAL: Abdomen soft, non-tender, nondistended. EXTREMITIES: No edema or joint tenderness. BACK: Nontender without deformity or crepitance. No flank tenderness. NEURO: AOx3. SKIN: Dark purple hematoma noted left shoulder, right buttock, right flank Initial Vital Signs Initial Vital Signs: Vital Signs Temperature 100.2 F H 11/22/21 23:42 Pulse Rate 166 H 11/22/21 23:42 Respiratory Rate 42 H 11/22/21 23:42 Blood Pressure 120/60 11/22/21 23:42 Pulse Oximetry 98 11/22/21 23:42 Course Orders Ordered: Discontinued Medications Fentanyl (Fentanyl 100 Mcg/2 Ml Inj) 50 mcg IV Q1H PRN PRN Reason: Pain, Severe (7-10) Last Admin: 11/23/21 02:48 Dose: 50 mcg Documented by: JACE Sodium Chloride (Normal Saline 0.9%) 1,000 mls @ 125 mls/hr IV CONT ROBERTO Last Infusion: 11/23/21 04:19 Dose: 0 mls/hr Documented by: Admin: 11/23/21 01:20 Dose: 125 mls/hr Documented by: JACE Piperacillin Sod/Tazobactam (Sod 4.5 gm/ Sodium Chloride) 100 mls @ 200 mls/hr IV NOW ONE Stop: 11/23/21 01:29 Last Infusion: 11/23/21 02:49 Dose: 0 mls/hr Documented by: Admin: 11/23/21 01:47 Dose: 200 mls/hr Documented by: JACE Dextrose (D10w) 1,000 mls @ 200 mls/hr IV CONT ROBERTO Last Infusion: 11/23/21 04:19 Dose: 0 mls/hr Documented by: Admin: 11/23/21 00:02 Dose: 200 mls/hr Documented by: JACE Tranexamic Acid 1,000 mg/ (Sodium Chloride) 100 mls @ 200 mls/hr IV NOW ONE Stop: 11/23/21 02:47 Last Infusion: 11/23/21 04:22 Dose: 0 mls/hr Documented by: Admin: 11/23/21 02:48 Dose: 200 mls/hr Documented by: JACE Ketamine HCl (Ketamine 500 Mg/5 Ml Inj) 75 mg 1 mg/kg (75 mg) IV NOW ONE Stop: 11/23/21 03:18 Last Admin: 11/23/21 04:22 Dose: Not Given Documented by: JACE Lidocaine/Sodium Bicarbonate (Lido 1%/Sod Bicarb 8.4% (10ml) 10 Ml Syringe) 10 ml INJ NOW ONE Stop: 11/23/21 01:39 Last Admin: 11/23/21 04:20 Dose: Not Given Documented by: JACE Metoclopramide HCl (Metoclopramide 10 Mg/2 Ml Inj) 10 mg IV NOW ONE Stop: 11/22/21 23:43 Last Admin: 11/23/21 04:19 Dose: Not Given Documented by: JACE Ondansetron HCl (Ondansetron 4 Mg/2 Ml Inj) 4 mg IV NOW ONE Stop: 11/22/21 23:43 Last Admin: 11/23/21 04:19 Dose: Not Given Documented by: JACE Phenobarbital (Phenobarbital 65 Mg/Ml Vial) 260 mg IV NOW ONE Stop: 11/23/21 00:43 Last Admin: 11/23/21 01:20 Dose: 260 mg Documented by: JACE Rocuronium [place] (Rocuronium 100 Mg/10 Ml Vial) 46 mg 0.6 mg/kg (46 mg) IV NOW ONE Stop: 11/23/21 03:18 Last Admin: 11/23/21 04:22 Dose: Not Given Documented by: JACE Vital Signs Vital signs: Vital Signs - 8 hr 11/22/21 23:42 11/23/21 00:14 11/23/21 00:17 Temperature 100.2 F H Pulse Rate 166 H 162 H 160 H Respiratory Rate 42 H 46 H 41 H Blood Pressure 120/60 134/62 107/53 L Pulse Oximetry 98 93 95 11/23/21 00:30 11/23/21 00:47 11/23/21 01:00 Temperature Pulse Rate 159 H 155 H 155 H Respiratory Rate 42 H 42 H 41 H Blood Pressure 103/54 L 103/52 L Pulse Oximetry 89 L 89 L 94 11/23/21 01:08 11/23/21 01:30 11/23/21 02:00 Temperature 100.5 F H Pulse Rate 155 H 153 H 139 H Respiratory Rate 41 H 41 H 41 H Blood Pressure 120/56 L 109/46 L 94/45 L Pulse Oximetry 92 92 99 11/23/21 02:30 11/23/21 02:42 11/23/21 03:00 Temperature Pulse Rate 129 H 133 H 129 H Respiratory Rate 36 H 44 H 33 H Blood Pressure 86/52 L 86/42 L Pulse Oximetry 89 L 99 98 11/23/21 03:08 11/23/21 03:30 11/23/21 03:32 Temperature Pulse Rate 130 H 80 52 L Respiratory Rate 33 H 21 14 Blood Pressure 116/89 101/69 Pulse Oximetry 69 L 46 L 80 L 11/23/21 03:35 Temperature Pulse Rate 32 L Respiratory Rate 26 H Blood Pressure 90/65 Pulse Oximetry 100 MDM - Altered Mental Status Lab Data Result diagrams: 11/23/21 00:05 11/22/21 23:45 Labs: Lab Results 11/22/21 11/22/21 11/22/21 Range/Units 23:45 23:45 23:45 WBC (4.5-11.0) X10^3/uL RBC (4.5-5.9) X10^6/uL Hgb (13.5-17.5) g/dL Hct (41-53) % MCV (80-100) fL MCH (26-34) PG MCHC (30-36) % RDW (11.6-14.8) % Plt Count (150-400) X10^3/uL Neut % (Auto) (50-75) % Lymph % (Auto) (25-40) % [place] % (Auto) (3-14) % Eos % (Auto) (2-4) % Baso % (Auto) (0-2) % Neut # (Auto) (4422-7202) /uL Lymph # (Auto) (0970-6432) /uL [place] # (Auto) (0-900) /uL Eos # (Auto) (0-450) /uL Baso # (Auto) (0-100) /uL Platelet Estimate RBC Morphology Anisocytosis PT 24.7 H (10.1-12.7) SECONDS INR 2.1 H (0.9-1.3) Sodium 140 (137-145) mmol/L Potassium 3.8 (3.4-5.1) mmol/L Chloride 106 (98-107) mmol/L Carbon Dioxide 18 L (22-32) mmol/L BUN 16 (9-20) mg/dL Creatinine 1.76 H (0.66-1.25) mg/dL Estimated GFR 47 L (>60) mL/min BUN/Creatinine Ratio 9.1 (6-22) Glucose 42 L* (70-100) mg/dL Lactate 13.6 H* (0.7-2.1) mmol/L Calcium 7.9 L (8.4-10.2) mg/dL Magnesium 1.1 L (1.6-2.3) mg/dL Total Bilirubin 7.3 H (0.2-1.3) mg/dL AST 90 H (17-59) IU/L ALT 29 (<50) IU/L Alkaline Phosphatase 193 H (38-126) U/L Ammonia (9-30) umol/L Total Creatine Kinase 416 H (55-170) U/L CK-MB (CK-2) 0.84 (<2.37) ng/mL CK-MB (CK-2) Rel Index 0.2 L (1.5-5.0) % Troponin I 0.032 (0.01-0.034) ng/mL Total Protein 6.6 (6.3-8.2) g/dL Albumin 2.6 L (3.5-5.0) g/dL Globulin 4.0 (1.7-4.1) g/dL Albumin/Globulin Ratio 0.7 L (1.0-2.8) Lipase 133 (23-300) U/L Ethyl Alcohol 63 H ( - 10) mg/dL SARS-CoV-2 (PCR) (Negative) Blood Type Antibody Screen Crossmatch 11/23/21 11/23/21 11/23/21 Range/Units 00:05 00:05 00:05 WBC 0.8 L* (4.5-11.0) X10^3/uL RBC 2.26 L (4.5-5.9) X10^6/uL Hgb 7.5 L (13.5-17.5) g/dL Hct 22.4 L (41-53) % MCV 99.1 (80-100) fL MCH 33.0 (26-34) PG MCHC 33.3 (30-36) % RDW 18.5 H (11.6-14.8) % Plt Count 46 L (150-400) X10^3/uL Neut % (Auto) 73.7 (50-75) % Lymph % (Auto) 23.5 L (25-40) % [place] % (Auto) 1.5 L (3-14) % Eos % (Auto) 0.9 L (2-4) % Baso % (Auto) 0.4 (0-2) % Neut # (Auto) 600 L (6972-2054) /uL Lymph # (Auto) 200 L (4571-5709) /uL [place] # (Auto) 0 (0-900) /uL Eos # (Auto) 0 (0-450) /uL Baso # (Auto) 0 (0-100) /uL Platelet Estimate Decreased on smear RBC Morphology See below Anisocytosis 2+ H PT (10.1-12.7) SECONDS INR (0.9-1.3) Sodium (137-145) mmol/L Potassium (3.4-5.1) mmol/L Chloride (98-107) mmol/L Carbon Dioxide (22-32) mmol/L BUN (9-20) mg/dL Creatinine (0.66-1.25) mg/dL Estimated GFR (>60) mL/min BUN/Creatinine Ratio (6-22) Glucose (70-100) mg/dL Lactate (0.7-2.1) mmol/L Calcium (8.4-10.2) mg/dL Magnesium (1.6-2.3) mg/dL Total Bilirubin (0.2-1.3) mg/dL AST (17-59) IU/L ALT (<50) IU/L Alkaline Phosphatase (38-126) U/L Ammonia 51 H (9-30) umol/L Total Creatine Kinase (55-170) U/L CK-MB (CK-2) (<2.37) ng/mL CK-MB (CK-2) Rel Index (1.5-5.0) % Troponin I (0.01-0.034) ng/mL Total Protein (6.3-8.2) g/dL Albumin (3.5-5.0) g/dL Globulin (1.7-4.1) g/dL Albumin/Globulin Ratio (1.0-2.8) Lipase (23-300) U/L Ethyl Alcohol ( - 10) mg/dL SARS-CoV-2 (PCR) (Negative) Blood Type O Positive Antibody Screen Negative Crossmatch See Detail 11/23/21 Range/Units 00:21 WBC (4.5-11.0) X10^3/uL RBC (4.5-5.9) X10^6/uL Hgb (13.5-17.5) g/dL Hct (41-53) % MCV (80-100) fL MCH (26-34) PG MCHC (30-36) % RDW (11.6-14.8) % Plt Count (150-400) X10^3/uL Neut % (Auto) (50-75) % Lymph % (Auto) (25-40) % [place] % (Auto) (3-14) % Eos % (Auto) (2-4) % Baso % (Auto) (0-2) % Neut # (Auto) (4605-0793) /uL Lymph # (Auto) (2064-3844) /uL [place] # (Auto) (0-900) /uL Eos # (Auto) (0-450) /uL Baso # (Auto) (0-100) /uL Platelet Estimate RBC Morphology Anisocytosis PT (10.1-12.7) SECONDS INR (0.9-1.3) Sodium (137-145) mmol/L Potassium (3.4-5.1) mmol/L Chloride (98-107) mmol/L Carbon Dioxide (22-32) mmol/L BUN (9-20) mg/dL Creatinine (0.66-1.25) mg/dL Estimated GFR (>60) mL/min BUN/Creatinine Ratio (6-22) Glucose (70-100) mg/dL Lactate (0.7-2.1) mmol/L Calcium (8.4-10.2) mg/dL Magnesium (1.6-2.3) mg/dL Total Bilirubin (0.2-1.3) mg/dL AST (17-59) IU/L ALT (<50) IU/L Alkaline Phosphatase (38-126) U/L Ammonia (9-30) umol/L Total Creatine Kinase (55-170) U/L CK-MB (CK-2) (<2.37) ng/mL CK-MB (CK-2) Rel Index (1.5-5.0) % Troponin I (0.01-0.034) ng/mL Total Protein (6.3-8.2) g/dL Albumin (3.5-5.0) g/dL Globulin (1.7-4.1) g/dL Albumin/Globulin Ratio (1.0-2.8) Lipase (23-300) U/L Ethyl Alcohol ( - 10) mg/dL SARS-CoV-2 (PCR) Negative (Negative) Blood Type Antibody Screen Crossmatch Point of Care Testing Glucose POC [address] scan - head: Radiologist's Impression: KolbyBalta??50??M??1970 ? Allergy/Adv: No Known Drug Allergies Close Head CT (Signed) Chris Yoo - 11/22/21 Chest/Abdomen/Pelvis CT (Signed) Chris Yoo - 11/22/[address] (Signed) Chris Yoo - 11/22/21 Telemetry Strips 03/06/21 Chest/Abdomen/Pelvis CTA (Signed) Darin Venegas - 03/06/21 Abdomen Ultrasound (Signed) Darin Venegas - 03/06/21 Abdomen/Pelvis CT (Signed) Giovanny France - 01/29/21 Abdomen Ultrasound (Signed) Michoacano Mcintosh - 01/29/[address] (Signed) Mague Mathis - 04/19/20 Abdomen Ultrasound (Signed) Aixa Gambino - 04/19/[address] (Signed) Beth Duran - 04/19/19 Chest X-Ray (Signed) Sulaiman Hein - 10/21/18 Abdomen Ultrasound (Signed) Norma Pugh - 03/27/18 Abdomen/Pelvis CT (Signed) Dany,Scott - 03/27/[address] (Signed) Omar Saenz - 03/27/[address] (Signed) Omar Saenz - 03/27/18 Launch?Image [address] [address] [address] Scan Report Signed Patient: Balta Jarrett MR#: [id number] : 1970 Acct:[id number] Age/Sex: 50 / M Date of Service: 11/22/21 Loc: ED Accession Number: [id number] ?? Procedure: CT head/brain wo con Ordering Provider: Huy Ross D.O. PROCEDURE:? CT HEAD/BRAIN WO CON ? INDICATIONS:? multiple falls, unresponsive ? TECHNIQUE:? Noncontrast 4.5 mm thick angled axial sections acquired from the foramen magnum to the vertex, with coronal and sagittal reformats.? For radiation dose reduction, the following was used:? automated exposure control, adjustment of mA and/or kV according to patient size.? ? COMPARISON:? [facility], CT, CT HEAD/BRAIN WO CON, 04/19/2020, 18:33. ? FINDINGS:? Image quality:? There is motion artifact limiting evaluation. ? CSF spaces:? Basal cisterns are patent.? No extra-axial fluid collections.? Ventricles are normal in size and shape.? ? Brain:? No definite intracranial hemorrhage, mass, or mass effect.? Peoples-white matter interface appears preserved.? ? Skull and face:? Calvarium and visualized facial bones are intact, without suspicious lesions.? There is left parietal and temporal scalp soft tissue swelling.? ? Sinuses:? Visualized sinuses and mastoids are clear.? ? IMPRESSION:? ? 1. No definite acute intracranial abnormality. ? 2. Left parietal and temporal scalp soft tissue swelling without associated fractures.? ? Dictated by: Chris Yoo M.D. on 11/23/2021 at 2:04 ? ? Approved by: Chris Yoo M.D. on 11/23/2021 at 2:05 ? CT - cervical spine: Radiologist's Impression: [address] [address] [address] Scan Report Signed Patient: Balta Jarrett MR#: [id number] : 1970 Acct:[id number] Age/Sex: 50 / M Date of Service: 11/22/21 Loc: ED Accession Number: [id number] ?? Procedure: CT cervical spine wo con Ordering Provider: Huy Ross D.O. PROCEDURE:? CT CERVICAL SPINE WO CON ? INDICATIONS:? fall unresponsive ? TECHNIQUE:? Noncontrast 3 mm thick sections acquired from the skull base to the T4 level.? Sagittal and coronal reformats were then constructed.? For radiation dose reduction, the following was used:? automated exposure control, adjustment of mA and/or kV according to patient size.? ? COMPARISON:? [facility], CT, CT CHEST ABD PEL W CON, 11/23/2021, 0:45.? [facility], CT, CT CERVICAL SPINE WO CON, 03/27/2018, 19:59. ? FINDINGS:? Image quality:? There is motion artifact limiting evaluation.? ? Bones:? No definite fractures or subluxation.? There is is mild anterolisthesis redemonstrated at C2-C3.? There is moderate multilevel degenerative disc disease throughout the mid and lower cervical spine.? Moderate facet arthropathy also demonstrated throughout the cervical spine.? Visualized superior ribs are intact.? ? Soft tissues:? Prevertebral soft tissues are normal in thickness.? No paravertebral hematomas.? No apical pneumothoraces.? There is a large amount of pleural fluid within the visualized right hemithorax. ? ? IMPRESSION:? ? 1. No fracture or subluxation in the cervical spine. ? 2. Multilevel degenerative changes throughout the cervical spine. ? 3. Fluid opacification within the visualized right hemithorax.? Recommend correlation with concurrent CT of the chest abdomen pelvis.? Dictated by: Chris Yoo M.D. on 11/23/2021 at 2:05 ? ? Approved by: Chris Yoo M.D. on 11/23/2021 at 2:08 ? CT scan - chest: Radiologist's Impression: Balta Jarrett??50??M??1970 ? Allergy/Adv: No Known Drug Allergies Close Head CT (Signed) Chris Yoo - 11/22/21 Chest/Abdomen/Pelvis CT (Signed) Chris Yoo - 11/22/[address] (Signed) Chris Yoo - 11/22/21 Telemetry Strips 03/06/21 Chest/Abdomen/Pelvis CTA (Signed) Darin Venegas - 03/06/21 Abdomen Ultrasound (Signed) Darin Venegas - 03/06/21 Abdomen/Pelvis CT (Signed) Caden Francewn - 01/29/21 Abdomen Ultrasound (Signed) Michoacano Mcintosh - 01/29/[address] (Signed) Mague Mathis - 04/19/20 Abdomen Ultrasound (Signed) ImmanuelAixa - 04/19/[address] (Signed) ReneeAbebe maisilvina - 04/19/19 Chest X-Ray (Signed) Sulaiman Hein - 10/21/18 Abdomen Ultrasound (Signed) Norma Pugh - 03/27/18 Abdomen/Pelvis CT (Signed) Omar Saenz - 03/27/[address] (Signed) Omar Saenz - 03/27/[address] (Signed) Omar Saenz - 03/27/18 [place] [address] CT Scan Report Signed Patient: Balta Jarrett MR#: [id number] : 1970 Acct:[id number] Age/Sex: 50 / M Date of Service: 11/22/21 Loc: ED Accession Number: [id number] ?? Procedure: CT chest abd pel w con Ordering Provider: Huy Ross D.O. PROCEDURE:? CT CHEST ABD PEL W CON ? INDICATIONS:? multiple falls, bruising all over, unresponsive ? TECHNIQUE:? After the administration of intravenous contrast, 5 mm thick sections acquired from the lung apices to the symphysis.? 2.5 mm thick coronal and sagittal reformats were acquired. ?Additional 7 mm thick coronal maximum intensity projection (MIP) reformats acquired through the lungs.? Optional 10-minute delayed imaging may be performed from the kidneys to the bladder.? For radiation dose reduction, the following was used:? automated exposure control, adjustment of mA and/or kV according to patient size.? ? COMPARISON:? [facility], CT, CT ANGIO CHEST ABDOMEN PELVIS, 03/06/2021, 21:17. ? FINDINGS:? Image quality:? There is motion artifact limiting evaluation.? ? CHEST:? Lungs:? There is a large right pneumothorax.? Internal curvilinear region of high density within the collection as seen on series 2, image 28 is suspicious for active arterial extravasation.? Posterior areas of atelectasis are demonstrated within the right lung.? Underlying pulmonary contusions or lacerations cannot be excluded.? There is a small left pleural effusion with associated mild compressive atelectasis.? No evidence of pneumothorax. ? Mediastinum:? The right hemothorax demonstrates mass effect on the mediastinum with mild leftward shift.? Heart size is normal.? No pericardial effusion.? Thoracic aorta and pulmonary arteries demonstrate normal size and enhancement.? No mediastinal or hilar adenopathy.? Esophagus is normal in caliber.? Multiple gastroesophageal varices are redemonstrated.? There is a small hiatal hernia.? ? Chest wall:? There are mildly displaced fractures of the right posterior 8th and 9th ribs.? No subcutaneous emphysema.? No axillary or supraclavicular adenopathy.? ? ? ABDOMEN:? Solid organs:? There is a nodular cirrhotic liver redemonstrated.? No definite hepatic lacerations.? The liver demonstrates heterogeneous attenuation with indistinct nodules.? Gallbladder demonstrates multiple calcified gallstones.? Borderline gallbladder wall thickening is again noted, which is nonspecific.? Biliary system is non-dilated.? Pancreas enhances normally, without transection.? The spleen again demonstrates a cleft laterally.? No definite lacerations.? The spleen is mildly enlarged measuring up to 13.4 cm.? No definite perisplenic hematomas.? No adrenal hematomas.? Kidneys demonstrate no hydronephrosis or definite lacerations.? There is heterogeneous enhancement of the kidneys bilaterally.? No perinephric fluid collections. ? Peritoneum and bowel:? There is a moderate amount of ascites in the abdomen and pelvis redemonstrated.? No free air.? Small bowel loops demonstrate normal wall thickness and caliber.? There is segmental wall thickening of the ascending colon redemonstrated which may represent a colitis or portal colopathy.? ? Nodes and vessels:? No retroperitoneal or mesenteric adenopathy.? Aorta and inferior vena cava are normal in size and enhancement.? There is a recanalized paraumbilical vein. ? Miscellaneous:? No ventral hernias.? ? ? PELVIS:? Genitourinary:? The bladder is partially distended. ? Miscellaneous:? There are muscle contusions within the right gluteus amara muscle.? No inguinal hernias or adenopathy.? ? Bones:? Pelvic ring and hip joints appear intact.? No vertebral compression fractures.? ? ? IMPRESSION:? ? 1. Large right hemothorax with suggestion of active arterial extravasation. ? 2. Fractures of the right posterior 8th and 9th ribs. ? 3. Atelectasis in the posterior right lung, with underlying pulmonary contusions or lacerations not excluded. ? 4. Nodular cirrhotic liver redemonstrated with evaluation for HCC limited on the current study. ? 5. Moderate ascites, gastroesophageal varices, recanalized paraumbilical vein, and mild splenomegaly consistent with portal hypertension. ? Findings discussed with Dr. Ross on 11/23/2021 at 2:10 a.m..? Dictated by: Chris Yoo M.D. on 11/23/2021 at 2:08 ? ? Approved by: Chris Yoo M.D. on 11/23/2021 at 2:21 ? MDM Narrative Medical decision making narrative: 50-year-old male with significant chronic medical conditions presents in guarded condition with minimal information though patient suggests he probably has fallen multiple times in the past few days. High concern for internal bleeding given liver history, and expected thrombocytopenia and coagulation difficulties. He has multiple dark purple hematoma as and complains of pain all over. Patient taken to trauma room after CT, he very clearly refuses transfusion. Septic fluids not given given concern of traumatic internal hemorrhage and likelihood of worsening bleeding. Patient states that he does not want any significant interventions and would prefer no CPR or intubation but is open to the concept if there is a high likelihood of survival. I have been in close contact with his who states that although his paperwork does not say it he has told her on multiple occasions that he does not want her wrote measures employed. Upon receipt of imaging suspicions have been confirmed and he has a large right-sided hemo thorax without evidence of active bleeding. After telephone conference with our on-call trauma surgeon as well as heart reviewed we sure the opinion that he is incredibly high risk to perform chest thoracotomy in our department given lack of ability to administer blood products, access to thoracic surgery or Interventional Radiology. I had extensive discussion with both the patient and the about his rapidly deteriorating status, airway equipment is in the room along with ultrasound and chest tube setup. I had a brief conversation with [place] to inquire about their bloodless program and whether not they were equipped to handle trauma and they quickly directed me to [facility]. [facility] was happy to accept and [facility] was activated, however soon after 's arrival patient's clinical scenario rapidly deteriorated. While preparing to intubate he lost pulses and very rapidly . Due to his wishes, which have been reiterated by , along with perception of medical futility we did not attempt invasive resuscitation. He at [phone] with at bedside. Critical Care Time Critical Care Time Critical Care Time: Yes Total Critical Care Time: 40 Attestation: The high probability of a clinically significant, sudden or life threatening deterioration of the [CV] system(s) required my full and direct attention, intervention and personal management. The aggregate critical care time was [40] minutes. This time is in addition to time spent performing reported procedures but includes the following: [x] Data Review and interpretation [x] Patient assessment and monitoring of vital signs [x] Documentation [x] Medication orders and management Discharge Plan Departure Patient Disposition: Clinical Impression: Hemothorax on right, Cirrhosis, Thrombocytopenia, Multiple rib fractures, Anemia, Blood transfusion declined because patient is L[employer] day, Alcohol withdrawal, Acute kidney failure Date/Time: 11/23/21 03:45
[2021-11-22 23:42] VITALS: BP 120/60; PULSE 166; RESP 42; TEMP 37.9; O2SAT 98
--- NOTE | 2021-11-22 23:42 | DI.CT.S_ITS ---
PROCEDURE: CT HEAD/BRAIN WO CON INDICATIONS: multiple falls, unresponsive TECHNIQUE: Noncontrast 4.5 mm thick angled axial sections acquired from the foramen magnum to the vertex, with coronal and sagittal reformats. For radiation dose reduction, the following was used: automated exposure control, adjustment of mA and/or kV according to patient size. COMPARISON: [facility], CT, CT HEAD/BRAIN WO CON, 04/19/2020, 18:33. FINDINGS: Image quality: There is motion artifact limiting evaluation. CSF spaces: Basal cisterns are patent. No extra-axial fluid collections. Ventricles are normal in size and shape. Brain: No definite intracranial hemorrhage, mass, or mass effect. Peoples-white matter interface appears preserved. Skull and face: Calvarium and visualized facial bones are intact, without suspicious lesions. There is left parietal and temporal scalp soft tissue swelling. Sinuses: Visualized sinuses and mastoids are clear. IMPRESSION: 1. No definite acute intracranial abnormality. 2. Left parietal and temporal scalp soft tissue swelling without associated fractures. Dictated by: Chris Yoo M.D. on 11/23/2021 at 2:04 Approved by: Chris Yoo M.D. on 11/23/2021 at 2:05
--- NOTE | 2021-11-22 23:42 | DI.CT.S_ITS ---
PROCEDURE: CT CERVICAL SPINE WO CON INDICATIONS: fall unresponsive TECHNIQUE: Noncontrast 3 mm thick sections acquired from the skull base to the T4 level. Sagittal and coronal reformats were then constructed. For radiation dose reduction, the following was used: automated exposure control, adjustment of mA and/or kV according to patient size. COMPARISON: [facility], CT, CT CHEST ABD PEL W CON, 11/23/2021, 0:45. [facility], CT, CT CERVICAL SPINE WO CON, 03/27/2018, 19:59. FINDINGS: Image quality: There is motion artifact limiting evaluation. Bones: No definite fractures or subluxation. There is is mild anterolisthesis redemonstrated at C2-C3. There is moderate multilevel degenerative disc disease throughout the mid and lower cervical spine. Moderate facet arthropathy also demonstrated throughout the cervical spine. Visualized superior ribs are intact. Soft tissues: Prevertebral soft tissues are normal in thickness. No paravertebral hematomas. No apical pneumothoraces. There is a large amount of pleural fluid within the visualized right hemithorax. IMPRESSION: 1. No fracture or subluxation in the cervical spine. 2. Multilevel degenerative changes throughout the cervical spine. 3. Fluid opacification within the visualized right hemithorax. Recommend correlation with concurrent CT of the chest abdomen pelvis. Dictated by: Chris Yoo M.D. on 11/23/2021 at 2:05 Approved by: Chris Yoo M.D. on 11/23/2021 at 2:08
--- NOTE | 2021-11-22 23:42 | DI.CT.S_ITS ---
PROCEDURE: CT CHEST ABD PEL W CON INDICATIONS: multiple falls, bruising all over, unresponsive TECHNIQUE: After the administration of intravenous contrast, 5 mm thick sections acquired from the lung apices to the symphysis. 2.5 mm thick coronal and sagittal reformats were acquired. Additional 7 mm thick coronal maximum intensity projection (MIP) reformats acquired through the lungs. Optional 10-minute delayed imaging may be performed from the kidneys to the bladder. For radiation dose reduction, the following was used: automated exposure control, adjustment of mA and/or kV according to patient size. COMPARISON: [facility], CT, CT ANGIO CHEST ABDOMEN PELVIS, 03/06/2021, 21:17. FINDINGS: Image quality: There is motion artifact limiting evaluation. CHEST: Lungs: There is a large right pneumothorax. Internal curvilinear region of high density within the collection as seen on series 2, image 28 is suspicious for active arterial extravasation. Posterior areas of atelectasis are demonstrated within the right lung. Underlying pulmonary contusions or lacerations cannot be excluded. There is a small left pleural effusion with associated mild compressive atelectasis. No evidence of pneumothorax. Mediastinum: The right hemothorax demonstrates mass effect on the mediastinum with mild leftward shift. Heart size is normal. No pericardial effusion. Thoracic aorta and pulmonary arteries demonstrate normal size and enhancement. No mediastinal or hilar adenopathy. Esophagus is normal in caliber. Multiple gastroesophageal varices are redemonstrated. There is a small hiatal hernia. Chest wall: There are mildly displaced fractures of the right posterior 8th and 9th ribs. No subcutaneous emphysema. No axillary or supraclavicular adenopathy. ABDOMEN: Solid organs: There is a nodular cirrhotic liver redemonstrated. No definite hepatic lacerations. The liver demonstrates heterogeneous attenuation with indistinct nodules. Gallbladder demonstrates multiple calcified gallstones. Borderline gallbladder wall thickening is again noted, which is nonspecific. Biliary system is non-dilated. Pancreas enhances normally, without transection. The spleen again demonstrates a cleft laterally. No definite lacerations. The spleen is mildly enlarged measuring up to 13.4 cm. No definite perisplenic hematomas. No adrenal hematomas. Kidneys demonstrate no hydronephrosis or definite lacerations. There is heterogeneous enhancement of the kidneys bilaterally. No perinephric fluid collections. Peritoneum and bowel: There is a moderate amount of ascites in the abdomen and pelvis redemonstrated. No free air. Small bowel loops demonstrate normal wall thickness and caliber. There is segmental wall thickening of the ascending colon redemonstrated which may represent a colitis or portal colopathy. Nodes and vessels: No retroperitoneal or mesenteric adenopathy. Aorta and inferior vena cava are normal in size and enhancement. There is a recanalized paraumbilical vein. Miscellaneous: No ventral hernias. PELVIS: Genitourinary: The bladder is partially distended. Miscellaneous: There are muscle contusions within the right gluteus amara muscle. No inguinal hernias or adenopathy. Bones: Pelvic ring and hip joints appear intact. No vertebral compression fractures. IMPRESSION: 1. Large right hemothorax with suggestion of active arterial extravasation. 2. Fractures of the right posterior 8th and 9th ribs. 3. Atelectasis in the posterior right lung, with underlying pulmonary contusions or lacerations not excluded. 4. Nodular cirrhotic liver redemonstrated with evaluation for HCC limited on the current study. 5. Moderate ascites, gastroesophageal varices, recanalized paraumbilical vein, and mild splenomegaly consistent with portal hypertension. Findings discussed with Dr. Ross on 11/23/2021 at 2:10 a.m.. Dictated by: Chris Yoo M.D. on 11/23/2021 at 2:08 Approved by: Chris Yoo M.D. on 11/23/2021 at 2:21
[2021-11-23] VITALS (15 sets, daily range): BP systolic 86–134; BP diastolic 42–89; PULSE 32–162; RESP 14–46; TEMP 38.1; O2SAT 46–100
[2021-11-23] MEDS: DEXTROSE 10 % IN WATER 1,000 ML 200 ML IV (00:02)
[2021-11-23 00:14] LABS: INR 2.1 (0.9-1.3); Prothrombin Time 24.7 SECONDS (10.1-12.7)
[2021-11-23 00:20] LABS: Alanine Aminotransferase 29 IU/L (<50); Albumin 2.6 g/dL (3.5-5.0); Albumin Globulin Ratio 0.7 (1.0-2.8); Alkaline Phosphatase 193 U/L (38-126); Aspartate Aminotransferase 90 IU/L (17-59); BUN Creatinine Ratio 9.1 (6-22); Bilirubin Total 7.3 mg/dL (0.2-1.3); Blood Urea Nitrogen 16 mg/dL (9-20); Calcium 7.9 mg/dL (8.4-10.2); Carbon Dioxide 18 mmol/L (22-32); Chloride 106 mmol/L (98-107); Creatine Kinase 416 U/L (55-170); Estimated Glomerular Filt Rate 47 mL/min (>60); Ethanol (ETOH) 63 mg/dL; HEMOLYSIS < 15 (0-50); Lipase 133 U/L (23-300); Magnesium 1.1 mg/dL (1.6-2.3); Potassium 3.8 mmol/L (3.4-5.1); Sodium 140 mmol/L (137-145); Total Protein 6.6 g/dL (6.3-8.2)
[2021-11-23 00:30] LABS: Glucose 42 mg/dL (70-100); Troponin I 0.032 ng/mL (0.01-0.034)
[2021-11-23 00:32] LABS: Ammonia (NH3) 51 umol/L (9-30)
[2021-11-23 00:34] LABS: CKMB % Relative Index 0.2 % (1.5-5.0); Creatine Kinase MB 0.84 ng/mL (<2.37)
[2021-11-23 00:36] LABS: Basophils Absolute Auto 0 /uL (0-100); Basophils Percent Auto 0.4 % (0-2); Eosinophils Absolute Auto 0 /uL (0-450); Eosinophils Percent Auto 0.9 % (2-4); Hematocrit 22.4 % (41-53); Hemoglobin 7.5 g/dL (13.5-17.5); Lymphocytes Absolute Auto 200 /uL (1100-4500); Lymphocytes Percent Auto 23.5 % (25-40); Mean Corpuscular HGB Conc 33.3 % (30-36); Mean Corpuscular Volume 99.1 fL (80-100); Monocytes Absolute Auto 0 /uL (0-900); Monocytes Percent Auto 1.5 % (3-14); Neutrophils Absolute Auto 600 /uL (1500-7000); Neutrophils Percent Auto 73.7 % (50-75); Red Blood Cell Count 2.26 X10^6/uL (4.5-5.9); Red Cell Distribution Width 18.5 % (11.6-14.8)
[2021-11-23 00:43] LABS: COVID19 -Nasal RAPID Negative (Negative)
[2021-11-23 00:46] LABS: White Blood Cell Count 0.8 X10^3/uL (4.5-11.0)
[2021-11-23 00:50] LABS: Add Manual Diff / Slide Review SLIDE REVIEW; Platelet Count 46 X10^3/uL (150-400)
[2021-11-23] MEDS: PHENobarbital 65 MG/ML VIAL 260 MG IV (01:20)
[2021-11-23] MEDS: SODIUM CHLORIDE 0.9% 1,000 ML 125 ML IV (01:20)
[2021-11-23 01:30] LABS: Lactate (Lactic Acid) 13.6 mmol/L (0.7-2.1)
[2021-11-23] MEDS: PIPERACILLIN/TAZO 4.5 GM in SODIUM CHLORIDE 0.9% 100 ML IV (01:47)
--- NOTE | 2021-11-23 02:24 | PC.NURSE ---
Pt refusing blood transfusion. States, I don't believe in it. confirms that they don't want blood products.
[2021-11-23] MEDS: fentaNYL 100 MCG/2 ML INJ 50 MCG IV (02:48)
[2021-11-23] MEDS: TRANEXAMIC ACID 1,000 MG in SODIUM CHLORIDE 0.9% 100 ML 200 MG IV (02:48)
[2021-11-23 03:13] LABS: Reflexed Lactate in 2 Hours Y
[2021-11-23 05:10] LABS: Anisocytosis 2+; Platelet Estimate Decreased on smear
--- NOTE | 2021-11-23 06:29 | PC.NURSE ---
Summary of care: CBG on arrival was 29, D10 was hanging from medics but not running. D10 opened. Imaging was deferred until blood sugar stabilized, additional IV access established, and blood obtained for labs. With D10 infusion running at 200mls/hr, pt's blood sugar improved to 80's. Initially, pt's SpO2 were in the 90's, then dropped to 80's on room air. Pt placed on 2 liters O2 by NC. Pt trasported to CT with RN. On return to room, pt c/o pain to back and abd, asked for pain medication. HR elevated 140's. Pt medicated with phenobarbital for suspected ETOH WD with some improvement in heart rate and restlessness. Imaging showed hemothorax with active bleed. Care discussed with pt, who was alert and interactive at that time, and his , Marybeth, over the phone. Pt declined blood products. It was explained to pt that he likely would not survive without blood administration. Pt verbalized understanding. Asked for pain medication for severe pain to back and abd. Pt medicated with Fentanyl per order. Pt reported good pain relief. Pt's arrived to bedside. Plan was made to transport pt to [facility] for bloodless treatment. Pt's resp status worsened; prep for intubation was initiated. stated that she didn't believe he wanted intubation or heroic measures. Heartrate dropped to 50's with SpO2 dropping to 50's. Natural allowed. Time of called by Dr Ross at [id number].
== END 2021-11-23 07:00 | disposition expired ==
PROVIDERS: Emergency Provider Emergency Medicine; PCP Family Medicine
DX: J94.2 Hemothorax (principal); K74.60 Unspecified cirrhosis of liver; D69.6 Thrombocytopenia, unspecified; S22.49XA Multiple fractures of ribs, unspecified side, initial encounter for closed fracture; R29.6 Repeated falls; D64.9 Anemia, unspecified; Z53.1 Procedure and treatment not carried out because of patient's decision for reasons of belief and group pressure; F10.239 Alcohol dependence with withdrawal, unspecified; N17.9 Acute kidney failure, unspecified; Z20.822 Contact with and (suspected) exposure to COVID-19; Z66 Do not resuscitate
CPT/HCPCS: 36415; 70450; 71260; 72125; 74177; 80053; 80320; 82140; 82550; 82553; 82962; 83605; 83690; 83735; 84484; 85025; 85610; 86850; 86900; 86901; 87635; 93005; 93010; 96365; 96366; 96367; 96375; 99285; 99291; 99292; C9803; G0390; J2543; J2560; J3010; Q9967